=== PATIENT | male | born 1955 | race Caucasian/White ===

== ENCOUNTER → 2017-02-20 | Outpatient (CLI) | payer OTHER ==
--- NOTE | 2017-02-20 11:07 | XR ---
Right hip HISTORY: An 52 431, sciatica right hip, pain 2 views of the right hip There is marked hypertrophic change and joint space loss, remodeling in the right hip. Subchondral sc lerosis and probable geode formation. Prominence along the femoral neck is noted. IMPRESSION: Marked osteoarthritis, findings could be indicative of femoral acetabular impingement.
--- NOTE | 2017-02-20 11:09 | XR ---
Lumbosacral spine HISTORY: Sciatica right hip, right hip and groin pain 5 views of the lumbosacral spine There is multilevel spondylosis, anterior flowing osteophytes are noted. Minimal anterolisthesis grad e 1 L5-S1. Suspect spondylolysis may be present at L5. Vertebral body height is maintained, bone mine ralization is normal. IMPRESSION: Osteoarthritis, there may be diffuse idiopathic skeletal hyperostosis. Difficult to exclu de spondylolysis of L5. Minimal grade 1 anterolisthesis L5-S1.
== END ==
LOC: RADXRYALE 09:58
PROVIDERS: ATTEND Internal Medicine
DX: M43.17 Spondylolisthesis, lumbosacral region (principal); M47.816 Spondylosis without myelopathy or radiculopathy, lumbar region; M16.11 Unilateral primary osteoarthritis, right hip
CPT/HCPCS: 72110; 73502

== ENCOUNTER → 2017-04-07 | Outpatient (CLI) | payer OTHER | END | disposition home or self-care (01) | LOC: LABPAT 13:49 | PROVIDERS: ATTEND Orthopaedic Surgery | DX: Z01.812 Encounter for preprocedural laboratory examination (principal); M16.11 Unilateral primary osteoarthritis, right hip | CPT/HCPCS: 87070 ==

== ENCOUNTER 2017-04-14 05:51 | Inpatient (IN) | payer OTHER ==
[~2017-04-14 05:51] MED LIST: DEXAMETHASONE SOD PHOSPHATE 10 MG/ML 1 ML VIAL IV ONE; HYDROmorphone 1 MG/ML 1 ML SYRINGE IVP PRN; LIDOCAINE 1% 20 ML VIAL (10MG/ML) FOR IV START INTRADERMA PRN; ONDANSETRON 4 MG/2 ML VIAL IVP ONE; SCOPOLAMINE 1.5MG/72HR PATCH TRANSDERM ONE
[2017-04-14] MEDS ORDERED: ACETAMINOPHEN TAB 500 MG TAB PO ONE (06:51)
[2017-04-14] MEDS: LACTATED RINGERS 1,000 ML IV SCH ×3 (06:53→20:36)
[2017-04-14] MEDS ORDERED: MELOXICAM 7.5 MG TAB PO ONE (07:02)
--- NOTE | 2017-04-14 07:14 | P.HPOR ---
History of Present Illness H&P Date: 04/14/17 Chief Complaint: Right hip pain 61-year-old patient seen with symptomatic right hip osteoarthritis. After having treatment options discussed, he elected to proceed with direct anterior right total hip arthroplasty. Consent was obtained. Past Medical History Past Medical History: Hyperlipidemia, Osteoarthritis (OA) History of Any Multi-Drug Resistant Organisms: None Reported Past Surgical History: Orthopedic Surgery Additional Past Surgical History / Comment(s): right rotator cuff repair,right little finger surg. Past Anesthesia/Blood Transfusion Reactions: No Reported Reaction Smoking Status: Never smoker - Past Family History Mother Family Medical History: No Reported History Medications and Allergies Home Medications Medication Instructions Recorded Confirmed Type Atorvastatin [Lipitor] 40 mg PO HS 04/07/17 04/14/17 History Ibuprofen [Motrin] 800 mg PO Q6H PRN 04/07/17 04/14/17 History Acetaminophen Tab [Tylenol Tab] 1,000 mg PO Q6HR PRN 04/14/17 04/14/17 History Allergies Allergy/AdvReac Type Severity Reaction Status Date / Time No Known Allergies Allergy Verified 04/14/17 06:19 Physical Examination Osteopathic Statement: *. No significant issues noted on an osteopathic structural exam other than those noted in the History and Physical/Consult. Diffuse tenderness about the right hip girdle. Limited range of motion with severe pain right hip. Diffuse weakness about the right hip. Positive hip impingement sign right. Right lower extremity approximately 1/2 inch shorter than the left. Straight leg raise negative. Distal neurovascular exam is intact. Results X-ray right hip: severe osteoarthritis Assessment and Plan Plan: Assessment: Symptomatic right hip osteoarthritis Plan: Direct anterior right total hip arthroplasty
[2017-04-14] MEDS ORDERED: TRANEXAMIC ACID 1,000 MG in SODIUM CHLORIDE 0.9% 100 ML IVPB ONE ×4 (07:15)
[2017-04-14] MEDS ORDERED: SODIUM CHLORIDE 0.9% 100 ML BAG ONE (07:25)
[2017-04-14] MEDS: ceFAZolin 2 GM in SODIUM CHLORIDE 0.9% 100 ML IVPB ONE ×2 (07:25→07:27)
[2017-04-14] MEDS ORDERED: PROPOFOL 10 MG/ML 20 ML VIAL IV ONE (07:25)
[2017-04-14] MEDS ORDERED: MIDAZOLAM 2 MG/2 ML VIAL ONE (07:25)
[2017-04-14] MEDS ORDERED: ceFAZolin 3,000 MG in SODIUM CHLORIDE 0.9% IRRIGATIO 3,000 ML IRRIGATION ONE (07:25)
[2017-04-14] MEDS ORDERED: TRANEXAMIC ACID 1,000 MG/10 ML VIAL ONE (07:25)
[2017-04-14] MEDS ORDERED: fentaNYL (PF) 50 MCG/ML 2 ML AMP ONE (07:25)
[2017-04-14] MEDS ORDERED: ePHEDrine SULFATE/0.9% NACL/PF 50 MG/5 ML SYRINGE IV ONE (07:25)
[2017-04-14] MEDS: ROPIVACAINE 246.25 MG, EPINEPHrine 0.5 MG, KETOROLAC 30 MG, cloNIDine HCL/PF 80 MCG, WA... MISCELLANE ONE ×10 (08:03→09:18)
[2017-04-14] MEDS ORDERED: LACTATED RINGERS 1,000 ML IV ONE ×2 (08:17→09:38)
[2017-04-14] MEDS ORDERED: MELOXICAM 7.5 MG TAB PO SCH (09:00)
[2017-04-14] MEDS ORDERED: HYDROcodone/APAP 7.5-325MG 1 EACH TAB PO PRN (09:54)
[2017-04-14] MEDS ORDERED: NALOXONE 0.4 MG/ML 1 ML VIAL IV PRN (09:54)
[2017-04-14] MEDS ORDERED: HYDROmorphone 1 MG/ML 1 ML SYRINGE IVP PRN ×3 (09:54)
[2017-04-14] MEDS ORDERED: ONDANSETRON 4 MG/2 ML VIAL IVP PRN (09:54)
[2017-04-14] MEDS ORDERED: hydrOXYzine PAMOATE 25 MG CAP PO PRN (09:54)
--- NOTE | 2017-04-14 09:54 | P.OP ---
Date of Procedure: 04/14/17 Preoperative Diagnosis: Right hip osteoarthritis Postoperative Diagnosis: Right hip osteoarthritis Procedure(s) Performed: Direct anterior right total hip arthroplasty Implants: 1. Depuy Corail size 13 standard collar cementless femoral stem 2. Depuy pinnacle press-fit acetabular shell 60 mm 3. Depuy polyethylene acetabular liner neutral 36 mm ID 60 mm OD 4. Biolox delta ceramic femoral head +8.5 36 mm 5. 4-pinnacle 6.5 mm cancellous bone screws Anesthesia: regional (Adductor canal block), local, spinal Surgeon: Luis Wilson Tandem Mill Roller #1: Justin Nam Estimated Blood Loss (ml): 600 Pathology: other (Femoral head) Condition: stable Disposition: PACU Indications for Procedure: 61-year-old patient seen with symptomatic right hip osteoarthritis. After treatment options were discussed, he elected to proceed with direct anterior right total hip arthroplasty. Operative Findings: See description of procedure Description of Procedure: The patient was taken to the operative suite after having undergone an adductor canal block by the department of anesthesia. Patient underwent a spinal anesthetic by the department of anesthesia. Patient was then transferred to the [facility]. Patient was given preoperative IV antibiotics and TXA. Both lower extremities were placed in standard leg spars. The hip was then prepped and draped in the normal sterile orthopedic fashion. A standard anterior incision was made beginning 3 cm lateral and 1 cm distal to the ASIS extending 10 cm. Dissection was then carried down through the subcutaneous soft tissues down to the fascia overlying the tensor fascia janey. An incision was now made through the fascia. Careful dissection was taken down exposing the tensor fascia jnaey muscle. A Cobra retractor was now placed along the medial femoral neck and a second one along the lateral femoral neck. The venous circumflex vessels were now identified, cauterized and clipped. We identified the anterior hip capsule. An incision was made through the hip capsule along the lateral border. Tag sutures were then placed along the anterior capsule and lateral capsule. We then performed a capsulotomy. Retractors were now placed around the femoral neck itself. A Cobra retractor was now placed along the anterior acetabulum. Good exposure was now noted of the femoral head/neck complex. Residual labrum was debrided out. We placed the extremity into 3 turns of fine traction. We were then able to introduce a skid in between the femoral head and acetabulum. A placed a awl into the femoral head. We took 2 turns of traction off the extremity. Rotation was now released. The femoral head was then dislocated without difficulty. Additional releasing was performed of the capsule. The head was then reduced. All traction was released. A femoral neck cut was now made with a sagittal saw. It was completed with an osteotome at the lateral neck area. The femoral head was now removed without difficulty. The extremity was now rotated to 60 of external rotation. It was locked in position. Residual labrum was now debrided out. There was some obvious significant deficiency noted in the posterior wall the acetabulum Serial reaming was performed of the acetabulum. Once we reached the appropriate size and a trial was position and it seemed to fit reasonably well again with this significant posterior wall deficiency. The appropriate size was now chosen opened and made available. I chose a multi hole cup given the posterior wall deficiency. It was introduced into the acetabulum without difficulty. This was done under direct fluoroscopy. I did get to stick but again with a posterior wall deficiency I felt that additional augmented screw fixation was indicated. Appropriate drill holes were made under direct C-arm fluoroscopy and an appropriate length screws were inserted 4. All 4 screws had good bite and purchase. I now irrigated the wound with pulse lavage mechanical irrigation. The C-arm was pulled back. An appropriate liner was introduced and clicked into position. It was felt to be stable. At this point retractors were removed. The extremity was now placed into 120 external rotation with no traction. The leg was now dropped to the ground and adducted. Appropriate retractors were now positioned along the proximal femur. We also placed our femoral look into position. Additional capsular releasing was performed to gain access to the proximal femur. We now used a box osteotome. A canal finder was now utilized. Serial broaching was now performed until we reached the appropriate size with good overall rotational stability. Appropriate calcar planing was performed. A trial head/neck was placed into position. The hip was now reduced. The C-arm/fluoroscopy was brought back into the operative field. A spot film was obtained of the nonoperative hip. A spot film was obtained of the trial components. Overlays were performed, we noted good overall alignment and positioning for determining leg length. The C- arm/fluoroscopy was pulled back. Retractors were repositioned and the hip was dislocated. The leg was again taken down to the ground and adducted. Appropriate retractors were repositioned as well as the femoral hook. All trial components were removed. The wound was irrigated with pulse lavage mechanical irrigation. The femoral implant was opened along with the femoral head. The femoral implant was introduced with good purchase and fixation noted. The femoral head was introduced with good positioning and fixation noted. Retractors were now removed. The hip was now reduced. There appeared be good positioning of the hip. This was confirmed under direct fluoroscopy. A spot film was obtained to document this. A second gram of TXA was given. Bipolar cautery had been utilized intermittently through the procedure for hemostasis. The wound was irrigated copiously with pulse lavage mechanical irrigation. The fascia was repaired with Vicryl suture. The subcutaneous soft tissues were repaired in layers with Vicryl suture. The skin was approximated with pernio/Dermabond. Sterile dressings were applied. Patient was then awakened, transferred to a bed and taken to recovery in stable condition. Saturnino VIERA assisted with the procedure.
[2017-04-14 11:51] VITALS: BMI 26.7
[2017-04-14] MEDS: HYDROcodone/APAP 7.5-325MG 1 EACH TAB PO PRN (12:04)
[2017-04-14] MEDS: traMADol 50 MG TAB PO SCH ×2 (12:19→17:44)
[2017-04-14] MEDS: ceFAZolin 2 GM in SODIUM CHLORIDE 0.9% 100 ML IVPB SCH (16:26)
[2017-04-14] MEDS ORDERED: SENNOSIDES-DOCUSATE SODIUM 1 EACH TAB PO SCH (21:00)
[2017-04-15] MEDS: ceFAZolin 2 GM in SODIUM CHLORIDE 0.9% 100 ML IVPB SCH ×2
[2017-04-15 01:07] VITALS: PULSE 102
[2017-04-15 04:44] VITALS: BP 118/66; TEMP 98.9
[2017-04-15] MEDS: LACTATED RINGERS 1,000 ML IV SCH ×2 (06:30→07:59)
[2017-04-15 07:01] LABS: Basophils % (A) 0 %; CH 29.6; CHCM 33.2; Eosinophils % (A) 0 %; HCT 32.6 % (39.0-53.0); HDW 2.53; HGB 10.8 gm/dL (13.0-17.5); Luc # (Auto) 0.16; Luc % (Auto) 1; Lymphocytes # (A) 1.7 k/uL (1.0-4.8); Lymphocytes % (A) 15 %; MCH 29.6 pg (25.0-35.0); MCHC 33.1 g/dL (31.0-37.0); MCV 89.6 fL (80.0-100.0); Mean Platelet Volume 7.5; Monocytes # (A) 0.6 k/uL (0-1.0); Monocytes % (A) 6 %; Neutrophils # (A) 8.6 k/uL (1.3-7.7); Neutrophils % (A) 77 %; RBC 3.64 m/uL (4.30-5.90); RDW 13.4 % (11.5-15.5); WBC 11.1 k/uL (3.8-10.6); WBC (Perox) 11.47
[2017-04-15] MEDS: HYDROcodone/APAP 7.5-325MG 1 EACH TAB PO PRN (07:45)
[2017-04-15 08:01] VITALS: RESP 16
[2017-04-15] MEDS ORDERED: ENOXAPARIN 40 MG/0.4 ML SYRINGE SQ SCH (09:00)
[2017-04-15] MEDS ORDERED: MELOXICAM 7.5 MG TAB PO SCH (09:00)
[2017-04-15] MEDS ORDERED: FAMOTIDINE 20 MG TAB PO SCH (09:00)
--- NOTE | 2017-04-15 09:10 | P.PN ---
Subjective Principal diagnosis: s/p right gely Patient is seen today resting in his hospital chair, he appears comfortable. His pain is well-controlled. He's done well with therapy. He denies any headaches, lightheadedness, chest pain, shortness of breath, nausea or vomiting. Objective - Vital Signs Vital signs: Vital Signs Temp 98.9 F 04/15/17 02:43 Pulse 102 H 04/15/17 02:43 Resp 16 04/15/17 04:00 BP 118/66 04/15/17 02:43 Pulse Ox 93 L 04/15/17 02:43 Intake & Output 04/14/17 04/15/17 04/15/17 18:59 06:59 18:59 Intake Total 2551 1000 Output Total 1500 1300 Balance 1051 1000 -1300 Weight 84.5 kg Intake: IV 2050 1000 Lactated Ringers 1,000 ml 1000 @ 100 mls/hr IV .Q10H THEODORA Rx#:[id number] Oral 500 Output: Urine 900 1300 Uretheral (Moore) 1300 Estimated Blood Loss 600 Other: Voiding Method Indwelling Catheter Indwelling Catheter - Exam Right lower extremity: Incisions clean, dry, and intact. Minimal soft tissue swelling present in the anterior thigh. Calf is soft, no tenderness with palpation. Plantar flexion, dorsiflexion, EHL, FHL are intact. Sensory exam to light touch throughout the extremities intact, dorsal pedis pulses 2+. - Labs CBC & Chem 7: 04/15/17 06:39 Labs: Abnormal Lab Results - Last 24 Hours (Table) 04/15/17 Range/Units 06:39 WBC 11.1 H (3.8-10.6) k/uL RBC 3.64 L (4.30-5.90) m/uL Hgb 10.8 L (13.0-17.5) gm/dL Hct 32.6 L (39.0-53.0) % Neutrophils # 8.6 H (1.3-7.7) k/uL Assessment and Plan Plan: Assessment: 1. Postop day #1 status post right total hip arthroplasty Plan: 1. Pain control, patient will be discharged home on oral medication 2. Continue work with therapy 3. Encourage incentive spirometer 4. Daily dressing changes 5. GI and DVT prophylaxis, we'll discharge home on aspirin 325 mg twice a day 6. Medical recommendations 7. Discharge planning: Patient will be discharged home today Time with Patient: Less than 30
[2017-04-15] MEDS: traMADol 50 MG TAB PO SCH ×2 (09:16)
--- NOTE | 2017-04-15 09:17 | P.DS ---
Providers Date of admission: 04/14/17 05:51 Expected date of discharge: 04/15/17 Attending physician: Luis Wilson Consults: 04/14/17 09:54 Consult Physician Routine Consulting Provider: Cristina Muir Consult Reason/Comments: Medical management Do you want consulting provider notified?: Yes Primary care physician: Annamaria Pimentel Hospital Course: Date of admission: 04/14/2017 Date of discharge: 04/15/2017 Admission diagnosis: Status post right total hip arthroplasty Discharge diagnosis: Same Attending physician: Dr. Wilson Surgical procedures: Right total hip arthroplasty Brief history: Patient is a 61-year-old male with a history of with progressive primary right hip osteoarthritis. At this point patient has failed conservative treatment measures and has opted to proceed with a elective right total hip arthroplasty. Hospital course: Details of patient's surgery can be found in operative report. Patient tolerated the procedure well and was subsequently transported to orthopedic floor. Patient's orthopeidc and medical care was provided daily. Patient had daily laboratory tests performed for evaluation of overall blood counts. Patient had daily physical therapy to include strengthening range of motion as well as education with walker ambulation. Patient was treated with Lovenox for their postoperative DVT prophylaxis during their inpatient stay. Patient was noted to have a relatively uneventful postoperative course. Patient reported satisfactory pain control with oral pain medications by postoperative day 0. Patient showed satisfactory progress with physical therapy. Patient moved steadily through the program and had no difficulty meeting the goals by postoperative day 1. Given patient's otherwise satisfactory course and having met physical therapy goals, plan is to discharge patient home on postoperative day 1. Discharge condition/disposition: Patient will be discharged home in stable condition. Discharge medications: Instructions are given on resumption of patient's normal daily medications per primary care recommendation, in addition patient will be prescribed Mehoopany 7.5 mg/325 mg, tramadol 50 mg, Colace milligrams, Pepcid 20 mg , aspirin 325 mg. Discharge instructions: 1. Wound care and infection precautions, keep incision dry and covered while showering, no lotions, creams, moisturizers. No soaking, tubs, pools, hottubs. Do not scrub over the incision. 2. Weight-bear as tolerated with walker / cane until follow-up. 3. Ice and elevate when necessary. Do not exceed 20 minutes per hour with ice pack. 4. Utilize compression sleeve until seen at first follow up appointment. 5. Visiting nursing care. 6. Home physical therapy. 7. Pain meds and anticoagulants per prescription. 8. Pain medication has potential to cause constipation. Increase oral fluid and fiber intake. Contact primary care provider if you have not had a bowel movement within 48 hours after discharge 9. No anti-inflammatory medication until discussed at first post operative visit, this including Motrin, Aleve, Mobic, Diclofenac. 10. Follow up in office at 2 weeks postop with Saturnino Nam PA-C 11. Follow up with your primary care doctor 7-10 days after discharge. 12. Contact [facility] with any questions, . Procedures: Right total hip arthroplasty Patient Condition at Discharge: Good Plan - Discharge Summary New Discharge Prescriptions: New Aspirin 325 mg PO BID #60 tab Docusate [Colace] 100 mg PO DAILY #30 capsule Famotidine [Pepcid] 20 mg PO DAILY #30 tablet HYDROcodone/APAP 7.5-325MG [Mehoopany 7.5] 1 - 2 each PO Q6HR PRN #60 tab PRN Reason: Pain traMADol HCl [Ultram] 50 mg PO Q6H PRN #40 tab PRN Reason: Pain No Action Atorvastatin [Lipitor] 40 mg PO HS Ibuprofen [Motrin] 800 mg PO Q6H PRN PRN Reason: Pain Acetaminophen Tab [Tylenol Tab] 1,000 mg PO Q6HR PRN PRN Reason: Pain Discharge Medication List Atorvastatin [Lipitor] 40 mg PO HS 04/07/17 [History] Ibuprofen [Motrin] 800 mg PO Q6H PRN 04/07/17 [History] Acetaminophen Tab [Tylenol Tab] 1,000 mg PO Q6HR PRN 04/14/17 [History] Aspirin 325 mg PO BID #60 tab 04/15/17 [Rx] Docusate [Colace] 100 mg PO DAILY #30 capsule 04/15/17 [Rx] Famotidine [Pepcid] 20 mg PO DAILY #30 tablet 04/15/17 [Rx] HYDROcodone/APAP 7.5-325MG [Mehoopany 7.5] 1 - 2 each PO Q6HR PRN #60 tab 04/15/17 [ Rx] traMADol HCl [Ultram] 50 mg PO Q6H PRN #40 tab 04/15/17 [Rx] Follow up Appointment(s)/Referral(s): [facility], [NON-STAFF] - Justin Nam, [place] [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 Wound care and infection precautions, keep incision dry and covered while showering, no lotions, creams, moisturizers. No soaking, pools, hot tubs. Do not scrub over incision. 2. Weight-bear as tolerated with walker / cane until follow-up. 3. Ice and elevate when necessary. Do not exceed 20 minutes per hour with ice pack. 4. Utilize compression sleeve until seen at first follow up appointment. 5. Visiting nursing care. 6. Home physical therapy. 7. Pain meds and anticoagulants per prescription. 8. Pain medication has potential to cause constipation. Increase oral fluid and fiber intake. Contact primary care provider if you have not had a bowel movement within 48 hours after discharge. 9. No anti-inflammatory medication until discussed at first post operative visit, this including Motrin, Aleve, Mobic, Diclofenac. 10. Follow up in office at 2 weeks postop with Saturnino Nam PA-C 11. Follow up with your primary care doctor 7-10 days after discharge. 12. Contact [facility] with any questions, . Discharge Disposition: HOME WITH HOME HEALTH SERVICES
[2017-04-15] MEDS ORDERED: ACETAMINOPHEN TAB 500 MG TAB PO PRN (11:49)
[2017-04-15] MEDS ORDERED: MULTIVITAMINS, THERA 1 EACH TAB PO SCH (12:00)
[2017-04-15] MEDS ORDERED: ATORVASTATIN 40 MG TAB PO SCH (21:00)
== END 2017-04-15 13:57 | disposition home health service (06) | DRG 470 ==
LOC: 2ORMAIN 05:51 → 3SUR 09:43
PROVIDERS: ADMIT Orthopaedic Surgery; ATTEND Orthopaedic Surgery
PROC: 0SR904A Replacement of Right Hip Joint with Ceramic on Polyethylene Synthetic Substitute, Uncemented, Open Approach (ICD-10-PCS; principal; 2017-04-14 07:30)
DX: M16.11 Unilateral primary osteoarthritis, right hip (principal); E78.5 Hyperlipidemia, unspecified; Z79.899 Other long term (current) drug therapy; Z79.1 Long term (current) use of non-steroidal anti-inflammatories (NSAID); Z82.49 Family history of ischemic heart disease and other diseases of the circulatory system; Z83.3 Family history of diabetes mellitus; Z51.81 Encounter for therapeutic drug level monitoring
CPT/HCPCS: 36415; 85025; 86850; 86900; 86901; 88300

== ENCOUNTER 2021-06-27 09:00 | Inpatient (IN) | payer OTHER ==
[2021-06-27] MEDS ORDERED: ONDANSETRON 4 MG/2 ML VIAL IVP STA (09:06)
--- NOTE | 2021-06-27 09:11 | ED ---
General Adult HPI - General Chief complaint: Shortness of Breath Stated complaint: Cardiac Arrest Time Seen by Provider: 06/27/21 09:00 Source: patient, RN/MD, EMS, RN notes reviewed, old records reviewed Mode of arrival: EMS Limitations: no limitations - History of Present Illness Initial comments: 65-year-old male with a history of hyperlipidemia nonsmoker who is in process of getting a cardiac workup which also included a stress test in the cardiology office today when after the stress test patient was sitting and was noted to go into a ventricular fibrillation arrest. CPR was started it for for about one half minutes AED was applied which read shock the patient was shocked once and back into a sinus rhythm. He woke up immediately. He was given 150 mg of amiodarone IV push transported here by EMS for further evaluation. Currently he complains some nausea and some soreness to his chest. No definitive EKG changes in the post arrest EKG. I did discuss this with Dr. Tello. - Related Data Home Medications Medication Instructions Recorded Confirmed Aspirin EC [Ecotrin Low Dose] 81 mg PO DAILY 06/27/21 06/27/21 Metoprolol Succinate [Toprol XL] 25 mg PO DAILY 06/27/21 06/27/21 Rosuvastatin [Crestor] 20 mg PO DAILY 06/27/21 06/27/21 Allergies Allergy/AdvReac Type Severity Reaction Status Date / Time No Known Allergies Allergy Verified 06/27/21 09:26 Review of Systems ROS Statement: Those systems with pertinent positive or pertinent negative responses have been documented in the HPI. ROS Other: All systems not noted in ROS Statement are negative. Past Medical History Past Medical History: Hyperlipidemia, Osteoarthritis (OA) History of Any Multi-Drug Resistant Organisms: None Reported Past Surgical History: Orthopedic Surgery Additional Past Surgical History / Comment(s): right rotator cuff repair,right little finger surg. Past Anesthesia/Blood Transfusion Reactions: No Reported Reaction Past Psychological History: No Psychological Hx Reported Smoking Status: Never smoker Past Alcohol Use History: None Reported Past Drug Use History: None Reported - Past Family History Mother Family Medical History: No Reported History General Exam - General Exam Comments Initial Comments: This is a well-developed well-nourished awake alert oriented 3 male Limitations: no limitations General appearance: alert, anxious Head exam: Present: atraumatic, normocephalic, normal inspection Eye exam: Present: normal appearance, PERRL, EOMI. Absent: scleral icterus, conjunctival injection, periorbital swelling ENT exam: Present: normal exam, mucous membranes moist Neck exam: Present: normal inspection, full ROM, other (Discharge. Bruits). Absent: tenderness, meningismus, lymphadenopathy Respiratory exam: Present: normal lung sounds bilaterally, chest wall tenderness (For her mild tenderness palpation of the anterior chest wall with palpation no step-off or crepitation). Absent: respiratory distress, wheezes, rales, rhonchi, stridor Cardiovascular Exam: Present: regular rate, normal rhythm, normal heart sounds. Absent: systolic murmur, diastolic murmur, rubs, gallop, clicks GI/Abdominal exam: Present: soft, normal bowel sounds. Absent: distended, tenderness, guarding, rebound, rigid Extremities exam: Present: normal inspection, full ROM, normal capillary refill. Absent: tenderness, pedal edema, joint swelling, calf tenderness Back exam: Present: normal inspection Neurological exam: Present: alert, oriented X3, CN II-XII intact Psychiatric exam: Present: normal affect, normal mood Skin exam: Present: warm, dry, intact, normal color. Absent: rash Course Vital Signs 06/27/21 06/27/21 06/27/21 09:01 09:05 09:06 Temperature 97.8 F Pulse Rate 77 71 Respiratory 18 18 18 Rate Blood Pressure 147/89 O2 Sat by Pulse 100 Oximetry EKG Findings - EKG Results: EKG: interpreted by ERMD, sinus rhythm (There was sinus rhythm a 73. Interval 196 QRS duration 68 daily since QTC 386/425 left exodeviation evidence of first- degree AV block. Appears to the EKG submitted from the office.) Medical Decision Making - Medical Decision Making I did discuss the findings with Dr. Brennan who did come the emergency department see the patient patient be admitted with consultation by Dr. Street. Dr. Tello did contact Dr. Street. - Radiology Data Radiology results: image reviewed (Image reviewed no acute findings) Critical Care Time Critical Care Time: Yes Total Critical Care Time: 31 Critical Care Time: Critical care time includes initial presentation with history physical labs x- rays multiple reevaluation patient responsive therapy discuss with the boring machine set up operator jig this and the patient to the hospital. Review of old charting discussion with Dr. Brennan admission orders neck mentation the above. Disposition Clinical Impression: Cardiac arrest with ventricular fibrillation Disposition: ADMITTED IP TO THIS HOSP Condition: Fair Referrals: Annamaria Pimentel MD [Primary Care Provider] - 1-2 days
[2021-06-27] MEDS ORDERED: HEPARIN SODIUM 1,000 UN/ML (10ML VL) IV ONE ×2 (09:12→17:51)
[2021-06-27] MEDS ORDERED: HEPARIN SODIUM 1,000 UN/ML (10ML VL) IV PRN (09:12)
[2021-06-27] MEDS ORDERED: AMIODARONE 360 MG in DEXTROSE 5% IN WATER 200 ML IV ONE ×2 (09:15)
[2021-06-27] MEDS ORDERED: DEXTROSE 5% IN WATER 100 ML with AMIODARONE 150 MG IV ONE (09:30)
--- NOTE | 2021-06-27 09:36 | XR ---
EXAMINATION TYPE: XR chest 2V DATE OF EXAM: 06/27/2021 COMPARISON: None HISTORY: 65-year-old male dysrhythmia, nausea TECHNIQUE: AP and lateral views FINDINGS: Overlying pacer pad. Heart upper limits of normal in size. Aorta and pulmonary vasculature within nor mal limits. No consolidation or pleural effusion. IMPRESSION: Borderline heart size. No acute cardiopulmonary process.
[2021-06-27] MEDS ORDERED: NALOXONE 0.4 MG/ML 1 ML VIAL IV PRN (09:48)
[2021-06-27 09:50] LABS: Basophils # (A) 0.1 k/uL (0-0.2); Basophils % (A) 1 %; Eosinophils # (A) 0.1 k/uL (0-0.7); Eosinophils % (A) 1 %; HCT 47.2 % (39.0-53.0); HGB 15.4 gm/dL (13.0-17.5); Lymphocytes # (A) 3.5 k/uL (1.0-4.8); Lymphocytes % (A) 34 %; MCH 29.8 pg (25.0-35.0); MCHC 32.6 g/dL (31.0-37.0); MCV 91.3 fL (80.0-100.0); Mean Platelet Volume 8.6; Monocytes # (A) 0.4 k/uL (0-1.0); Monocytes % (A) 4 %; Neutrophils % (A) 59 %; Platelet Count 261 k/uL (150-450); RBC 5.17 m/uL (4.30-5.90); RDW 12.7 % (11.5-15.5); WBC 10.1 k/uL (3.8-10.6)
[2021-06-27] MEDS ORDERED: ATORVASTATIN 80 MG TAB PO STA (09:50)
[2021-06-27] MEDS ORDERED: AMIODARONE IN DEXTROSE,ISO-OSM 360 MG/200 ML PLAST..BAG IV ONE (10:02)
[2021-06-27] MEDS ORDERED: AMIODARONE IN DEXTROSE,ISO-OSM 150 MG/100 ML PLAST..BAG IV ONE (10:02)
[2021-06-27 10:03] LABS: Partial Thromboplastin Time 22.8 sec (22.0-30.0); Prothrombin Time 10.7 sec (9.0-12.0)
[2021-06-27 10:10] LABS: ALT 44 U/L (4-49); AST 42 U/L (17-59); African American GFR (CKD) >90 (>60 ml/min/1.73 sqM); Albumin 4.6 g/dL (3.5-5.0); Alkaline Phosphatase 103 U/L (38-126); Anion Gap 11 mmol/L; Blood Urea Nitrogen 17 mg/dL (9-20); Calcium 9.3 mg/dL (8.4-10.2); Carbon Dioxide 22 mmol/L (22-30); Chloride 107 mmol/L (98-107); Glucose 131 mg/dL (74-99); Magnesium 1.9 mg/dL (1.6-2.3); Non-African American GFR(CKD) >90 (>60 ml/min/1.73 sqM); Potassium 4.3 mmol/L (3.5-5.1); Sodium 140 mmol/L (137-145); Total Bilirubin 0.5 mg/dL (0.2-1.3); Total Protein 7.4 g/dL (6.3-8.2)
[2021-06-27] MEDS: HEPARIN SOD,PORK IN 0.45% NACL 25,000 UNIT in 0.45% NACL 1 250ML.BAG IV SCH (10:11)
[2021-06-27] MEDS: SODIUM CHLORIDE 0.9% 1,000 ML IV SCH (10:14)
[2021-06-27] MEDS ORDERED: ATORVASTATIN 40 MG TAB PO SCH (10:15)
[2021-06-27] MEDS ORDERED: ASPIRIN 81 MG PO SCH (10:15)
[2021-06-27] MEDS: METOPROLOL SUCCINATE (ER) 25 MG TAB.ER.24H PO SCH (10:28)
--- NOTE | 2021-06-27 11:49 | P.CNPUL ---
History of Present Illness Consult date: 06/27/21 Requesting physician: Carmelo Templeton Reason for consult: dyspnea, other Chief complaint: Shortness of breath, acute cardiac arrest History of present illness: This is a 65-year-old male patient of Dr. Pimentel, with past medical history of hyperlipidemia, osteoarthritis, patient is a nonsmoker, who was getting a cardiac workup which also included a stress test at the [facility] office today. Patient was wearing a heart monitor for the last month because of episodes of exertional dyspnea, however at the time of his stress test the monitor was off. During his stress test patient went into ventricular fibrillation cardiac arrest. CPR was started for 1-1/2 minutes when the EEG was applied and a shock was delivered and patient was back in sinus rhythm. He regained consciousness immediately he was given 150 mg of IV push amiodarone, transported by EMS to the emergency department for further evaluation and management. Patient is awake and alert in the emergency department, complaining of some soreness to his chest, and nausea. EKG was obtained showing sinus mechanism with first-degree AV block and a rate of 73 BPM. He has evidence of Q wave in the leads 3 and aVF, and leads V2, V3. Cardiology is on the case, and evaluating the patient in the emergency department. Chest x-ray was obtained showing heart upper limits of normal in size, no acute cardiopulmonary process. Patient is breathing comfortably, he is on 2 L of oxygen pulse ox is 100%, afebrile, blood pressure is 147/89. She labs have been reviewed, CBC was within normal limits with white blood cell count of 10.1, hemoglobin of 15.4, with a count is 261, d-dimer was 1.08, coagulation profile was within normal limits, electrolytes and renal profile were unremarkable, first troponin was less than 0.012, TSH was 3.040. Patient is on point tenderness a ramy at 20 ML per hour, he is currently on amiodarone infusion at 1 mg/m, and heparin infusion per weight-based protocol, he was given Lipitor 80 mg. His home dose 81 mg aspirin, Toprol-XL has been restarted. Echocardiogram is pending, COVID-19 PCR is pending. Admission to the intensive care unit was requested, patient is currently awaiting a bed in the ICU. Review of Systems All systems: negative Constitutional: Denies chills, Denies fever Eyes: denies blurred vision, denies pain Ears, nose, mouth and throat: Denies headache, Denies sore throat Cardiovascular: Reports chest pain, Reports dyspnea on exertion, Denies shortness of breath Respiratory: Denies cough Gastrointestinal: Denies abdominal pain, Denies diarrhea, Denies nausea, Denies vomiting Musculoskeletal: Denies myalgias Integumentary: Denies pruritus, Denies rash Neurological: Denies numbness, Denies weakness Psychiatric: Denies anxiety, Denies depression Endocrine: Denies fatigue, Denies weight change Past Medical History Past Medical History: Hyperlipidemia, Osteoarthritis (OA) History of Any Multi-Drug Resistant Organisms: None Reported Past Surgical History: Orthopedic Surgery Additional Past Surgical History / Comment(s): right rotator cuff repair,right little finger surg. Past Anesthesia/Blood Transfusion Reactions: No Reported Reaction Past Psychological History: No Psychological Hx Reported Smoking Status: Never smoker Past Alcohol Use History: None Reported Past Drug Use History: None Reported - Past Family History Mother Family Medical History: No Reported History Medications and Allergies Home Medications Medication Instructions Recorded Confirmed Type Aspirin EC [Ecotrin Low Dose] 81 mg PO DAILY 06/27/21 06/27/21 History Metoprolol Succinate [Toprol XL] 25 mg PO DAILY 06/27/21 06/27/21 History Rosuvastatin [Crestor] 20 mg PO DAILY 06/27/21 06/27/21 History Allergies Allergy/AdvReac Type Severity Reaction Status Date / Time No Known Allergies Allergy Verified 06/27/21 09:26 Physical Exam Vitals: Vital Signs Temp Pulse Resp BP Pulse Ox 06/27/21 10:32 75 18 141/80 99 06/27/21 10:02 73 18 138/87 99 06/27/21 09:06 18 06/27/21 09:05 71 18 06/27/21 09:01 97.8 F 77 18 147/89 100 Intake and Output 06/26/21 06/27/21 06/27/21 22:59 06:59 14:59 Other: Weight 83.915 kg GENERAL EXAM: Alert, very pleasant, 65-year-old white male, resting on the gurney in the emergency department, currently on 2 L of oxygen pulse ox 100%, comfortable in no apparent distress. HEAD: Normocephalic/atraumatic. EYES: Normal reaction of pupils, equal size. Conjunctiva pink, sclera white. NOSE: Clear with pink turbinates. THROAT: No erythema or exudates. NECK: No masses, no JVD, no thyroid enlargement, no adenopathy. CHEST: No chest wall deformity. Symmetrical expansion. LUNGS: Equal air entry with no crackles, wheeze, rhonchi or dullness. CVS: Regular rate and rhythm, normal S1 and S2, no gallops, no murmurs, no rubs ABDOMEN: Soft, nontender. No hepatosplenomegaly, normal bowel sounds, no guarding or rigidity. EXTREMITIES: No clubbing, no edema, no cyanosis, 2+ pulses and upper and lower extremities. MUSCULOSKELETAL: Muscle strength and tone normal. SPINE: No scoliosis or deformity SKIN: No rashes CENTRAL NERVOUS SYSTEM: Alert and oriented -3. No focal deficits, tone is normal in all 4 extremities. PSYCHIATRIC: Alert and oriented -3. Appropriate affect. Intact judgment and insight. Results - Laboratory Findings CBC and BMP: 06/27/21 09:18 06/27/21 09:18 PT/INR, D-dimer PT 10.7 sec (9.0-12.0) 06/27/21 09:18 INR 1.0 (<1.2) 06/27/21 09:18 D-Dimer 1.08 mg/L FEU (<0.60) H 06/27/21 09:18 Abnormal lab findings: Abnormal Labs 06/27/21 06/27/21 09:18 09:18 D-Dimer 1.08 H Glucose 131 H - Diagnostic Findings Chest x-ray: report reviewed, image reviewed Additional studies: EKG reviewed Assessment and Plan Plan: Assessment: #1. Acute cardiac arrest related to ventricular fibrillation, during a outpatient stress test, requiring CPR, and defibrillation and return of spontaneous circulation. Received a dose of IV amiodarone and the EMS, and in the emergency department, for a total of 300 mg bolus and is currently on amiodarone infusion #2. Hyperlipidemia #3. Osteoarthritis #4. Nonsmoker #5. Elevated d-dimer, nonspecific #6. Exertional dyspnea for the past 3 months, under investigation by cardiology Plan: Continue antiarrhythmics and anticoagulation per cardiology Remains in sinus mechanism, continue monitoring for recurrence of arrhythmias Neurologically patient is intact Chest x-ray has been reviewed showing no acute abnormality Vital signs are stable Patient continues on amiodarone infusion and heparin infusion Echocardiogram is pending Admit to the intensive care unit for close monitoring Cardiology is consulted Await further recommendations Possibility of cardiac catheterization is being considered, patient is being kept nothing by mouth Continue to follow closely with cardiology I performed a history & physical examination of the patient and discussed their management with my nurse practitioner, Yudi Streeter. I reviewed the nurse practitioner's note and agree with the documented findings and plan of care. Lung sounds are positive for clear breath sounds throughout the lung tran. The findings and the impression was discussed with the patient. I attest to the documentation by the nurse practitioner. Time with Patient: Greater than 30
[2021-06-27 12:26] LABS: Glucose,Whole Blood 102 mg/dL (75-99)
[2021-06-27] MEDS ORDERED: ALPRAZolam 0.25 MG TAB PO PRN (13:12)
[2021-06-27] MEDS ORDERED: NITROGLYCERIN SL TABS 0.4 MG TAB SUBLINGUAL PRN (13:12)
[2021-06-27] MEDS ORDERED: ALPRAZolam 0.5 MG TAB PO PRN (13:12)
--- NOTE | 2021-06-27 14:09 | P.CRDCN ---
History of Present Illness History of present illness: Patient is pleasant 65-year-old male with a history of hyperlipidemia family history of coronary artery disease chest pains who presented approximately one month ago to our cardiology office to be evaluated for episodes where he will feel fine for most the day and then have a 5-10 minute "spell" where he will feel short of breath and had chest tightness. These would normally only occur approximately once a week however were increasing in frequency. He also has been having some episodes of chest tightness if he overdoes things such as mowing the grass for the last few years. He therefore underwent workup with a treadmill stress test earlier today in the office. 3 minutes into recovery he was sitting in a chair and started to have ST downsloping noted in the inferior leads and then 6 minutes into recovery had a ventricular fibrillation arrest. Patient underwent CPR and then defibrillation and was then transferred to [facility]. Patient seen and examined in emergency department. Patient states that since that time he denies any chest pain or pressure, no shortness breath. He is feeling somewhat nauseous however improving. EKG shows normal sinus rhythm, Q waves V1 and V2, no significant ST depressions or T-wave abnormalities. Blood work shows white blood cell count 10.1, hemoglobin 15.4, d-dimer 1.0, BUN 17, creatinine 0.8, glucose 131, initial troponin less than 0.012. No current chest pain or pressure, feels well. REVIEW OF SYSTEMS: At the time of my exam: CONSTITUTIONAL: Denies fever or chills. HEENT: Denies blurred vision, vision changes, or eye pain. Denies hemoptysis CARDIOVASCULAR: Denies chest pain. Denies orthopnea. Denies PND. Denies palpitations RESPIRATORY: Denies shortness of breath. GASTROINTESTINAL: Denies abdominal pain. Denies nausea or vomiting. HEMATOLOGIC: Denies bleeding disorders. GENITOURINARY: Denies any blood in urine. SKIN: Denies pruitis. Denies rash. PHYSICAL EXAM: VITAL SIGNS: Reviewed. GENERAL: Well-developed in no acute distress. HEENT: Head is normocephalic. Pupils are equal, round. Sclerae anicteric. Mucous membranes of the mouth are moist. Neck supple. No JVD or thyromegaly LUNGS: Respirations even and unlabored. Lungs with bilateral wheezing and bibasilar rales. HEART: Regular rate and rhythm. S1 and S2 heard. ABDOMEN: Soft. Nondistended. Nontender. EXTREMITIES: Normal range of motion. No clubbing or cyanosis. Peripheral pulses intact. Bilateral lower extremity edema noted, right worse than left NEUROLOGIC: Awake and alert. Oriented x 3. ASSESSMENT: 1. Ventricular fibrillation during stress test 2. Chest pain consistent with chronic angina 3. Status post cardiac arrest 4. Hyperlipidemia 5. Elevated d-dimer, do not suspect PE given clinical scenario PLAN: Patient unfortunately had a V. fib arrest during stress test which can be a rare complication from stress testing. He admits this was more activity than he normally does and symptoms consistent with chronic angina. Patient currently denies any angina-type symptoms. EKG back to normal without any ischemic albarran es. Discussed recommendations for heart catheterization with heart catheterization planned for 06/28/2021. Trend troponins. Check 2-D echo. Past Medical History Past Medical History: Hyperlipidemia, Osteoarthritis (OA) History of Any Multi-Drug Resistant Organisms: None Reported Past Surgical History: Orthopedic Surgery Additional Past Surgical History / Comment(s): right rotator cuff repair,right little finger surg. Past Anesthesia/Blood Transfusion Reactions: No Reported Reaction Past Psychological History: No Psychological Hx Reported Smoking Status: Never smoker Past Alcohol Use History: None Reported Past Drug Use History: None Reported - Past Family History Mother Family Medical History: No Reported History Additional Family Medical History / Comment(s): CABG surgery Father Family Medical History: Coronary Artery Disease (CAD), Myocardial Infarction ([place]) Additional Family Medical History / Comment(s): CABG Brother(s) Family Medical History: Coronary Artery Disease (CAD), Myocardial Infarction ([place]) Medications and Allergies Home Medications Medication Instructions Recorded Confirmed Type Aspirin EC [Ecotrin Low Dose] 81 mg PO DAILY 06/27/21 06/27/21 History Metoprolol Succinate [Toprol XL] 25 mg PO DAILY 06/27/21 06/27/21 History Rosuvastatin [Crestor] 20 mg PO DAILY 06/27/21 06/27/21 History Allergies Allergy/AdvReac Type Severity Reaction Status Date / Time No Known Allergies Allergy Verified 06/27/21 09:26 Physical Exam Vitals: Vital Signs Temp Pulse Resp BP Pulse Ox 06/27/21 13:00 68 14 143/91 95 06/27/21 12:45 67 15 148/83 95 06/27/21 12:30 70 15 135/90 95 06/27/21 12:15 97.6 F 71 17 143/118 96 06/27/21 12:00 72 139/84 96 06/27/21 11:30 71 16 136/90 98 06/27/21 11:00 67 16 141/80 100 06/27/21 10:32 75 18 141/80 99 06/27/21 10:30 77 34 H 138/87 99 06/27/21 10:02 73 18 138/87 99 06/27/21 10:00 69 11 L 147/89 98 06/27/21 09:30 67 7 L 147/89 99 06/27/21 09:12 75 24 147/89 06/27/21 09:06 18 06/27/21 09:05 71 18 06/27/21 09:01 97.8 F 77 18 147/89 100 Intake and Output 06/26/21 06/27/21 06/27/21 22:59 06:59 14:59 Output Total 150 Balance -150 Output: Urine 150 Other: Voiding Method Urinal Weight 83.915 kg Results 06/27/21 09:18 06/27/21 09:18 Cardiac Enzymes 06/27/21 06/27/21 Range/Units 09:18 09:18 AST 42 (17-59) U/L Troponin I <0.012 (0.000-0.034) ng/mL Coagulation 06/27/21 Range/Units 09:18 PT 10.7 (9.0-12.0) sec APTT 22.8 (22.0-30.0) sec CBC 06/27/21 Range/Units 09:18 WBC 10.1 (3.8-10.6) k/uL RBC 5.17 (4.30-5.90) m/uL Hgb 15.4 (13.0-17.5) gm/dL Hct 47.2 (39.0-53.0) % Plt Count 261 (150-450) k/uL Comprehensive Metabolic Panel 06/27/21 Range/Units 09:18 Sodium 140 (137-145) mmol/L Potassium 4.3 (3.5-5.1) mmol/L Chloride 107 (98-107) mmol/L Carbon Dioxide 22 (22-30) mmol/L BUN 17 (9-20) mg/dL Creatinine 0.83 (0.66-1.25) mg/dL Glucose 131 H (74-99) mg/dL Calcium 9.3 (8.4-10.2) mg/dL AST 42 (17-59) U/L ALT 44 (4-49) U/L Alkaline Phosphatase 103 (38-126) U/L Total Protein 7.4 (6.3-8.2) g/dL Albumin 4.6 (3.5-5.0) g/dL Current Medications Generic Name Dose Route Start Last Admin Trade Name Freq PRN Reason Stop Dose Admin Alprazolam 0.25 mg 06/27/21 13:12 Alprazolam 0.25 Mg Tab PO Q6HR PRN Mild Anxiety Alprazolam 0.5 mg 06/27/21 13:12 Alprazolam 0.5 Mg Tab PO Q6HR PRN Moderate Anxiety Aspirin 325 mg 06/28/21 07:00 Aspirin 325 Mg Tab PO 06/28/21 07:01 ONCE ONE Aspirin 81 mg 06/29/21 09:00 Aspirin 81 Mg PO DAILY [facility] Atorvastatin Calcium 80 mg 06/28/21 07:00 Atorvastatin 80 Mg Tab PO 06/28/21 07:01 ONCE ONE Atorvastatin Calcium 40 mg 06/29/21 09:00 Atorvastatin 40 Mg Tab PO DAILY [facility] Heparin Sodium (Porcine) 0 unit 06/27/21 09:12 Heparin Sodium 1,000 Un/Ml (10ml Vl) IV PER PROTOCOL PRN Low PTT Protocol Amiodarone HCl 360 mg/ 200 mls @ 33.333 mls/hr 06/27/21 09:15 06/27/21 10:13 Dextrose/Water IV 06/27/21 15:14 1 mg/min .Q6H ONE 33.333 mls/hr Administration Protocol 1 MG/MIN Heparin Sodium/Sodium Chloride 250 mls @ 10 mls/hr 06/27/21 09:15 06/27/21 10:11 25,000 unit/ Sodium Chloride IV 11.917 units/kg/hr .Q24H [facility] 10 mls/hr Administration Protocol 11.917 UNITS/KG/HR Sodium Chloride 1,000 mls @ 20 mls/hr 06/27/21 10:00 06/27/21 10:14 Saline 0.9% IV 20 mls/hr .Q24H [facility] Administration Sodium Chloride 1,000 ml/ IV 1,000 mls @ 83.915 mls/hr 06/27/21 23:00 Solution IV .[id number] [facility] 1 ML/KG/HR Heparin Sodium (Porcine) 10, 1,001 mls @ 999 mls/hr 06/28/21 07:00 000 unit/ Sodium Chloride IRRIGATION 06/28/21 23:00 ONCE PRN INTRA-OP Heparin Sodium (Porcine) 2,500 250.5 mls @ 250 mls/hr 06/28/21 07:00 unit/ Sodium Chloride IRRIGATION 06/28/21 23:00 ONCE PRN INTRA-OP Metoprolol Succinate 25 mg 06/27/21 10:15 06/27/21 10:28 Metoprolol Succinate (Er) 25 Mg Tab.Er.24h PO 25 mg DAILY [facility] Administration Naloxone HCl 0.2 mg 06/27/21 09:48 Naloxone 0.4 Mg/Ml 1 Ml Vial IV Q2M PRN Opioid Reversal Nitroglycerin 0.4 mg 06/27/21 13:12 Nitroglycerin Sl Tabs 0.4 Mg Tab SUBLINGUAL Q5M PRN Chest Pain Intake and Output 06/26/21 06/27/21 06/27/21 22:59 06:59 14:59 Output Total 150 Balance -150 Output: Urine 150 Other: Voiding Method Urinal Weight 83.915 kg Patient Weight 06/28/21 06:59 Weight 83.915 kg 06/27/21 09:18 06/27/21 09:18
--- NOTE | 2021-06-27 14:51 | P.HPIM ---
History of Present Illness Patient is a pleasant 65-year-old male came in after cardiac respiratory arrest and patient is found to be in V. tach this happened when when patient was having a stress test.. His EKG did show sinus rhythm with the Q waves in V1 and V2 and probably ST depressions in leads 2 and V5. Patient's troponin is negative. Patient denied any symptoms at this time patient today. Patient denied any nausea vomiting chest pain. REVIEW OF SYSTEMS: CONSTITUTIONAL: No fever, no malaise, no fatigue. HEENT: No recent visual problems or hearing problems. Denied any sore throat. CARDIOVASCULAR: No chest pain, orthopnea, PND, no palpitations, no syncope. PULMONARY: No shortness of breath, no cough, no hemoptysis. GASTROINTESTINAL: No diarrhea, no nausea, no vomiting, no abdominal pain. NEUROLOGICAL: No headaches, no weakness, no numbness. HEMATOLOGICAL: Denies any bleeding or petechiae. GENITOURINARY: Denies any burning micturition, frequency, or urgency. MUSCULOSKELETAL/RHEUMATOLOGICAL: Denies any joint pain, swelling, or any muscle pain. ENDOCRINE: Denies any polyuria or polydipsia. The rest of the 14-point review of systems is negative. PHYSICAL EXAMINATION: GENERAL: The patient is alert and oriented x3, not in any acute distress. Well developed, well nourished. HEENT: Pupils are round and equally reacting to light. EOMI. No scleral icterus. No conjunctival pallor. Normocephalic, atraumatic. No pharyngeal erythema. No thyromegaly. CARDIOVASCULAR: S1 and S2 present. No murmurs, rubs, or gallops. PULMONARY: Chest is clear to auscultation, no wheezing or crackles. ABDOMEN: Soft, nontender, nondistended, normoactive bowel sounds. No palpable organomegaly. MUSCULOSKELETAL: No joint swelling or deformity. EXTREMITIES: No cyanosis, clubbing, or pedal edema. NEUROLOGICAL: Gross neurological examination did not reveal any focal deficits. SKIN: No rashes. Assessment and plan -Cardiac respiratory arrest probably secondary to coronary artery disease and the patient and into V. tach during stress test and also had downsloping of exteriors during the stress test. Cardiology evaluated the patient. Further management as per cardiology -Hyperlipidemia -Mildly elevated d-dimer. Pretest probability for pulmonary malaise and is low and the d-dimer elevation is secondary to cardiorespiratory arrest DVT prophylaxis: Patient is presently on IV heparin for coronary artery disease Past Medical History Past Medical History: Hyperlipidemia, Osteoarthritis (OA) History of Any Multi-Drug Resistant Organisms: None Reported Past Surgical History: Orthopedic Surgery Additional Past Surgical History / Comment(s): right rotator cuff repair,right little finger surg. Past Anesthesia/Blood Transfusion Reactions: No Reported Reaction Past Psychological History: No Psychological Hx Reported Smoking Status: Never smoker Past Alcohol Use History: None Reported Past Drug Use History: None Reported - Past Family History Mother Family Medical History: No Reported History Additional Family Medical History / Comment(s): CABG surgery Father Family Medical History: Coronary Artery Disease (CAD), Myocardial Infarction ([place]) Additional Family Medical History / Comment(s): CABG Brother(s) Family Medical History: Coronary Artery Disease (CAD), Myocardial Infarction ([place]) Medications and Allergies Home Medications Medication Instructions Recorded Confirmed Type Aspirin EC [Ecotrin Low Dose] 81 mg PO DAILY 06/27/21 06/27/21 History Metoprolol Succinate [Toprol XL] 25 mg PO DAILY 06/27/21 06/27/21 History Rosuvastatin [Crestor] 20 mg PO DAILY 06/27/21 06/27/21 History Allergies Allergy/AdvReac Type Severity Reaction Status Date / Time No Known Allergies Allergy Verified 06/27/21 09:26 Physical Exam Vitals: Vital Signs Temp Pulse Resp BP Pulse Ox 06/27/21 13:00 68 14 143/91 95 06/27/21 12:45 67 15 148/83 95 06/27/21 12:30 70 15 135/90 95 06/27/21 12:15 97.6 F 71 17 143/118 96 06/27/21 12:00 72 139/84 96 06/27/21 11:30 71 16 136/90 98 06/27/21 11:00 67 16 141/80 100 06/27/21 10:32 75 18 141/80 99 06/27/21 10:30 77 34 H 138/87 99 06/27/21 10:02 73 18 138/87 99 06/27/21 10:00 69 11 L 147/89 98 06/27/21 09:30 67 7 L 147/89 99 06/27/21 09:12 75 24 147/89 06/27/21 09:06 18 06/27/21 09:05 71 18 06/27/21 09:01 97.8 F 77 18 147/89 100 Intake and Output 06/26/21 06/27/21 06/27/21 22:59 06:59 14:59 Output Total 150 Balance -150 Output: Urine 150 Other: Voiding Method Urinal Weight 83.915 kg Results CBC & Chem 7: 06/27/21 09:18 06/27/21 09:18 Labs: Abnormal Lab Results - Last 24 Hours (Table) 06/27/21 06/27/21 06/27/21 Range/Units 09:18 09:18 12:24 D-Dimer 1.08 H (<0.60) mg/L FEU Glucose 131 H (74-99) mg/dL POC Glucose (mg/dL) 102 H (75-99) mg/dL Thrombosis Risk Factor Assmnt - Choose All That Apply Other Risk Factors: Yes Each Risk Factor Represents 2 Points: Age 61-74 years Thrombosis Risk Factor Assessment Total Risk Factor Score: 2 Thrombosis Risk Factor Assessment Level: Low Risk
[2021-06-27] MEDS: AMIODARONE 450 MG in DEXTROSE 5% IN WATER 250 ML IV SCH ×2 (16:08)
[2021-06-27] MEDS ORDERED: VERAPAMIL 2.5 MG/ML 2 ML AMP ONE (17:07)
[2021-06-27] MEDS ORDERED: LIDOCAINE 1% INJ 10MG/ML (20 ML MDV) ONE (17:07)
[2021-06-27] MEDS ORDERED: HEPARIN SODIUM 1,000 UN/ML (10ML VL) ONE (17:36)
[2021-06-27] MEDS ORDERED: fentaNYL (PF) 50 MCG/ML 2 ML AMP ONE (17:37)
[2021-06-27] MEDS ORDERED: fentaNYL (PF) 50 MCG/ML 2 ML AMP IVP ONE (17:43)
[2021-06-27] MEDS ORDERED: LIDOCAINE 1% INJ 10MG/ML (20 ML MDV) SQ ONE (17:43)
[2021-06-27] MEDS ORDERED: MIDAZOLAM 2 MG/2 ML VIAL IVP ONE (17:43)
[2021-06-27] MEDS ORDERED: VERAPAMIL SYRINGE (5 MG/10 ML) INTRAARTER ONE (17:46)
[2021-06-27] MEDS ORDERED: SODIUM CHLORIDE 0.9% 1,000 ML IV ONE (17:53)
[2021-06-27] MEDS ORDERED: IOPAMIDOL-370 125ML BTL INJ ONE (17:58)
--- NOTE | 2021-06-27 18:15 | P.CARDCATH ---
Description of Procedure: PROCEDURES PERFORMED: Left heart catheterization, bilateral coronary angiography INDICATION: Cardiac arrest HISTORY: Patient is a pleasant 65-year-old male with a strong family history of coronary artery disease who has been having off-and-on chest pains or last 3 years. He admits sometimes these occur with exertion and sometimes he will have episodes where he will feel lightheaded and chest pain while at rest and this has been going on for the last few months and therefore decided to have it evaluated. Patient therefore underwent a treadmill stress test earlier today where he had a V. fib arrest approximately 6 minutes into recovery with successful CPR and defibrillation. He has been doing well since that time however given abnormal stress test and cardiac arrest heart catheterization was recommended. CONSENT:I have discussed the risks, benefits and alternative therapies for the above-mentioned procedure and for both sedation/analgesia as well as necessary blood product administration, if indicated, as they pertain to this patient. The patient has indicated understanding and acceptance of the risks and procedu res discussed. PROCEDURE: After the risks, benefits and alternatives of the above mentioned procedure explained in detail with the patient, informed consent was obtained. Patient was taken to the catheterization lab and prepped and draped in usual fashion. 1% lidocaine was used to anesthetize the right radial artery. A 6- Belarusian sheath was placed in the right radial artery using modified Seldinger technique. Left coronary angiography was performed with a 5-Belarusian JL 3.5 catheter and right coronary angiography was performed with a 5-Belarusian JR5 catheter in various views. A 5-[place]ian FR5 catheter was inserted into the left ventricle and pressure measurements were obtained. The right radial sheath was removed and a TR band was placed with hemostasis achieved. The patient tolerated the procedure well. Patient was transported back to the post catheterization holding area in stable condition. Conscious Sedation: Patient was monitored under the direct supervision of vision of myself for conscious sedation using Versed and fentanyl for a total duration of 17 minutes HEMODYNAMICS: Aorta 142/76 LV: 141/2, LVEDP 11 SELECTIVE CORONARY ARTERIOGRAPHY: LEFT MAIN: The left main is a large caliber vessel which bifurcates into the LAD and circumflex. There is no significant stenosis. LEFT ANTERIOR DESCENDING CORONARY ARTERY: LAD is a large caliber vessel which wraps around to the apex. The LAD has a diffuse 80% proximal stenosis and then immediately after a moderate caliber diagonal 1 branch the LAD has a 100% stenosis with left to left collaterals. The moderate caliber diagonal 1 branch has a mid 95% stenosis at the bifurcation of a superior and inferior branches. LEFT CIRCUMFLEX CORONARY ARTERY: Left circumflex is a large caliber vessel which is codominant and gives off a left PDA. There is a proximal 40% circumflex stenosis and then gives off a moderate to large caliber OM1 which has a tandem 95%, 90% stenosis. The distal circumflex has a 95% stenosis before giving off a PLV and a left PDA. RIGHT CORONARY ARTERY: The right coronary artery is a small caliber vessel which gives off a small caliber PDA. There is mid RCA 20-30% stenosis. FINAL IMPRESSION: 1. Multivessel coronary artery disease as described above including 80% proximal LAD, 100% proximal to mid LAD with left to left collaterals, 95% moderate caliber diagonal 1, 95% moderate to large caliber OM1 and 95% dominant distal circumflex. 2. Normal left sided filling pressures PLAN: 1. Aggressive risk factor modification per most recent ACC/AHA guidelines. 2. Evaluate for CABG.
[2021-06-27] MEDS ORDERED: RX INFO: IV CONTRAST WAS GIVEN 1 EACH MISC MISCELLANE PRN (18:16)
[2021-06-27] MEDS ORDERED: SODIUM CHLORIDE 0.9% 1,000 ML in EMPTY BAG 1 BAG IV SCH (23:00)
[2021-06-28 05:01] LABS: HCT 44.2 % (39.0-53.0); HGB 14.7 gm/dL (13.0-17.5); MCH 30.6 pg (25.0-35.0); MCHC 33.3 g/dL (31.0-37.0); MCV 91.8 fL (80.0-100.0); Mean Platelet Volume 8.3; Platelet Count 213 k/uL (150-450); RBC 4.82 m/uL (4.30-5.90); RDW 12.8 % (11.5-15.5)
[2021-06-28 05:15] LABS: African American GFR (CKD) >90 (>60 ml/min/1.73 sqM); Anion Gap 7 mmol/L; Blood Urea Nitrogen 15 mg/dL (9-20); Calcium 9.1 mg/dL (8.4-10.2); Carbon Dioxide 26 mmol/L (22-30); Chloride 105 mmol/L (98-107); Glucose 117 mg/dL (74-99); Non-African American GFR(CKD) >90 (>60 ml/min/1.73 sqM); Potassium 4.4 mmol/L (3.5-5.1); Sodium 138 mmol/L (137-145)
[2021-06-28] MEDS: AMIODARONE 450 MG in DEXTROSE 5% IN WATER 250 ML IV SCH ×2 (06:12)
[2021-06-28] MEDS ORDERED: ATORVASTATIN 80 MG TAB PO ONE (07:00)
[2021-06-28] MEDS ORDERED: HEPARIN SODIUM,PORCINE 2,500 UNIT in SODIUM CHLORIDE 0.9% 250 ML IRRIGATION PRN (07:00)
[2021-06-28] MEDS ORDERED: ASPIRIN 325 MG TAB PO ONE (07:00)
[2021-06-28] MEDS ORDERED: HEPARIN SODIUM,PORCINE 10,000 UNIT in SODIUM CHLORIDE 0.9% 1,000 ML IRRIGATION PRN (07:00)
--- NOTE | 2021-06-28 08:49 | P.PN ---
Subjective Patient is pleasant 65-year-old male with a history of hyperlipidemia family history of coronary artery disease chest pains who presented approximately one month ago to our cardiology office to be evaluated for episodes where he will feel fine for most the day and then have a 5-10 minute "spell" where he will feel short of breath and had chest tightness. These would normally only occur approximately once a week however were increasing in frequency. He also has been having some episodes of chest tightness if he overdoes things such as mowing the grass for the last few years. He therefore underwent workup with a treadmill stress test earlier today in the office. 3 minutes into recovery he was sitting in a chair and started to have ST downsloping noted in the inferior leads and then 6 minutes into recovery had a ventricular fibrillation arrest. Patient underwent CPR and then defibrillation and was then transferred to [facility]. Patient seen and examined in emergency department. Patient states that since that time he denies any chest pain or pressure, no shortness breath. He is feeling somewhat nauseous however improving. EKG shows normal sinus rhythm, Q waves V1 and V2, no significant ST depressions or T-wave abnor malities. Blood work shows white blood cell count 10.1, hemoglobin 15.4, d- dimer 1.0, BUN 17, creatinine 0.8, glucose 131, initial troponin less than 0.012. No current chest pain or pressure, feels well. 06/28 Patient seen and examined. Patient denies any chest pain or pressure. He underwent heart catheterization yesterday which showed multivessel disease. Being evaluated for CABG. He describes mild congestion no orthopnea. REVIEW OF SYSTEMS: At the time of my exam: CONSTITUTIONAL: Denies fever or chills. HEENT: Denies blurred vision, vision changes, or eye pain. Denies hemoptysis CARDIOVASCULAR: Denies chest pain. Denies orthopnea. Denies PND. Denies palpitations RESPIRATORY: Denies shortness of breath. GASTROINTESTINAL: Denies abdominal pain. Denies nausea or vomiting. HEMATOLOGIC: Denies bleeding disorders. GENITOURINARY: Denies any blood in urine. SKIN: Denies pruitis. Denies rash. PHYSICAL EXAM: VITAL SIGNS: Reviewed. GENERAL: Well-developed in no acute distress. HEENT: Head is normocephalic. Pupils are equal, round. Sclerae anicteric. Mucous membranes of the mouth are moist. Neck supple. No JVD or thyromegaly LUNGS: Respirations even and unlabored. Lungs with bilateral wheezing and bibasilar rales. HEART: Regular rate and rhythm. S1 and S2 heard. ABDOMEN: Soft. Nondistended. Nontender. EXTREMITIES: Normal range of motion. No clubbing or cyanosis. Peripheral pulses intact. Bilateral lower extremity edema noted, right worse than left NEUROLOGIC: Awake and alert. Oriented x 3. ASSESSMENT: 1. Status post cardiac arrest/Ventricular fibrillation during stress test 2. CAD with 80% proximal LAD, 100% proximal to mid LAD with left to left collaterals, 95% moderate caliber diagonal 1, 95% moderate to large caliber OM1 and 95% dominant distal circumflex. 3. Hyperlipidemia 4. Elevated d-dimer, do not suspect PE given clinical scenario PLAN: Patient underwent catheterization yesterday with multivessel CAD. Initiate CABG workup, cardiothoracic surgery recommendations appreciated. Continue heparin drip, aspirin, beta farhat, statin. Objective - Vital Signs Vital signs: Vital Signs Temp 97.8 F 06/28/21 04:00 Pulse 71 06/28/21 08:00 Resp 15 06/28/21 08:00 BP 138/84 06/28/21 08:00 Pulse Ox 91 L 06/28/21 08:00 Intake & Output 06/27/21 06/28/21 06/28/21 18:59 06:59 18:59 Intake Total 350 732.116 Output Total 350 850 0 Balance 0 -117.884 0 Weight 83.915 kg 85.5 kg Intake: IV 50 Intake, IV Titration 432.116 Amount Amiodarone 450 mg In 234.449 Dextrose 5% in Water 250 ml @ 0.5 MG/MIN 16.667 mls/hr IV .Q15H [facility] Rx#: [id number] Heparin Sod,Pork in 0.45% 197.667 NaCl 25,000 unit In 0.45 % NaCl 1 250ml.bag @ 11. 917 UNITS/KG/HR 10 mls/hr IV .Q24H [facility] Rx#: [id number] Oral 300 300 Output: Urine 350 850 0 Other: Voiding Method Urinal Urinal # Voids 0 - Labs CBC & Chem 7: 06/28/21 04:24 06/28/21 04:24 Labs: Abnormal Lab Results - Last 24 Hours (Table) 06/27/21 06/27/21 06/27/21 Range/Units 09:18 09:18 12:24 APTT (22.0-30.0) sec D-Dimer 1.08 H (<0.60) mg/L FEU Glucose 131 H (74-99) mg/dL POC Glucose (mg/dL) 102 H (75-99) mg/dL 06/28/21 06/28/21 Range/Units 04:24 04:24 APTT 31.8 H (22.0-30.0) sec D-Dimer (<0.60) mg/L FEU Glucose 117 H (74-99) mg/dL POC Glucose (mg/dL) (75-99) mg/dL
--- NOTE | 2021-06-28 09:00 | P.GSCN ---
History of Present Illness Consult date: 06/28/21 Reason for Consult: Coronary artery disease Requesting physician: Jam Street History of present illness: This is a 65-year-old male who follows on an outpatient basis with Dr. Pimentel for primary care as well as recently establishing cardiology care with Dr. Street. He has a previous medical history of hypertension, hyperlipidemia, never smoker, orthopedic surgeries, and significant family history including premature coronary artery disease with mother having myocardial infarction at less than 50 years old. This gentleman reports approximately 1 year history of intermittent chest pain and shortness of breath which resolves on its own after a few minutes, mostly with activity. Recently these episodes have been occurring with increasing frequency and have occurred at rest so he felt he shou ld have this evaluated. He establish care at [facility] with Dr. Street. Yesterday he was undergoing stress testing, he experienced V. fib arrest, received CPR and was shocked one time with ROSC and return of sinus rhythm. He was started on IV amiodarone and transported to [facility] for further evaluation and treatment. He underwent heart catheterization yesterday which demonstrated proximal LAD stenosis 80%, mid LAD stenosis 100%, first diagonal stenosis 95%, proximal circumflex stenosis 40%, first obtuse marginal artery stenosis 95%, and distal circumflex stenosis 95%. Due to these findings consultation was placed to cardiothoracic surgery for surgical revascularization recommendations. Review of Systems Review of systems was completed and was negative except as noted - Cardiovascular Reports as per HPI, Reports chest pain, Reports shortness of breath Past Medical History Past Medical History: Coronary Artery Disease (CAD), Hyperlipidemia, Hypertension, Osteoarthritis (OA) History of Any Multi-Drug Resistant Organisms: None Reported Past Surgical History: Orthopedic Surgery Additional Past Surgical History / Comment(s): right rotator cuff repair,right little finger surg, right hip Past Anesthesia/Blood Transfusion Reactions: No Reported Reaction Past Psychological History: No Psychological Hx Reported Smoking Status: Never smoker Past Alcohol Use History: None Reported Past Drug Use History: None Reported - Past Family History Mother Family Medical History: No Reported History, Coronary Artery Disease (CAD), Myocardial Infarction ([place]) Additional Family Medical History / Comment(s): CABG surgery; [place] at less than 50 years old Father Family Medical History: Coronary Artery Disease (CAD), Myocardial Infarction ([place]) Additional Family Medical History / Comment(s): CABG Brother(s) Family Medical History: Congestive Heart Failure (CHF), Coronary Artery Disease (CAD), Myocardial Infarction ([place]) Additional Family Medical History / Comment(s): from congestive heart failure Sister(s) Family Medical History: AFIB Medications and Allergies Home Medications Medication Instructions Recorded Confirmed Type Aspirin EC [Ecotrin Low Dose] 81 mg PO DAILY 06/27/21 06/27/21 History Metoprolol Succinate [Toprol XL] 25 mg PO DAILY 06/27/21 06/27/21 History Rosuvastatin [Crestor] 20 mg PO DAILY 06/27/21 06/27/21 History Allergies Allergy/AdvReac Type Severity Reaction Status Date / Time No Known Allergies Allergy Verified 06/27/21 09:26 Surgical - Exam Vital Signs Temp Pulse Resp BP Pulse Ox 97.8 F 77 18 147/89 100 06/27/21 09:01 06/27/21 09:01 06/27/21 09:01 06/27/21 09:01 06/27/21 09:01 CONSTITUTIONAL: Awake and alert, appears comfortable, cooperative, well- developed, well-nourished, no pain, no acute distress EYES: Pupils equal, round, reactive to light, normal ocular movement ENT: Moist mucous membranes without oral lesions present NECK: No masses, no bruits, trachea midline RESPIRATORY: Lungs sounds clear to auscultation bilaterally. Respirations even, nonlabored. Currently on room air with oxygen saturation 94%. Strong cough. No chest wall deformities. No clubbing or cyanosis present CARDIOVASCULAR: S1, S2 present. Regular rate and rhythm, sinus rhythm on telemetry. Palpable peripheral pulses bilaterally. No edema present. No calf pain or tenderness noted. No significant lower extremity varicosities noted. GASTROINTESTINAL: Abdomen soft, nontender, nondistended without masses or organomegaly noted. There is no rebound or guarding present. Active bowel sounds present 4 quadrants. GENITOURINARY: Deferred INTEGUMENTARY: Skin is warm and dry with evidence of good perfusion. NEUROLOGIC: Cranial nerves II through XII intact, normal coordination, no obvious motor or sensory deficits, speech is normal MUSKULOSKELETAL: Able to move all extremities, strength equal bilaterally, normal posture PSYCHIATRIC: Alert and oriented to person place and time, appropriate affect, intact judgment and insight Results - Labs 06/28/21 04:24 06/28/21 04:24 Abnormal Lab Results - Last 24 Hours (Table) 06/27/21 06/27/21 06/27/21 Range/Units 09:18 09:18 12:24 APTT (22.0-30.0) sec D-Dimer 1.08 H (<0.60) mg/L FEU Glucose 131 H (74-99) mg/dL POC Glucose (mg/dL) 102 H (75-99) mg/dL 06/28/21 06/28/21 Range/Units 04:24 04:24 APTT 31.8 H (22.0-30.0) sec D-Dimer (<0.60) mg/L FEU Glucose 117 H (74-99) mg/dL POC Glucose (mg/dL) (75-99) mg/dL Diabetes panel 06/27/21 06/28/21 Range/Units 09:18 04:24 Sodium 140 138 (137-145) mmol/L Potassium 4.3 4.4 (3.5-5.1) mmol/L Chloride 107 105 (98-107) mmol/L Carbon Dioxide 22 26 (22-30) mmol/L BUN 17 15 (9-20) mg/dL Creatinine 0.83 0.85 (0.66-1.25) mg/dL Glucose 131 H 117 H (74-99) mg/dL Calcium 9.3 9.1 (8.4-10.2) mg/dL AST 42 (17-59) U/L ALT 44 (4-49) U/L Alkaline Phosphatase 103 (38-126) U/L Total Protein 7.4 (6.3-8.2) g/dL Albumin 4.6 (3.5-5.0) g/dL Thyroid panel 06/27/21 Range/Units 09:18 TSH 3.040 (0.465-4.680) mIU/L Calcium panel 06/27/21 06/28/21 Range/Units 09:18 04:24 Calcium 9.3 9.1 (8.4-10.2) mg/dL Albumin 4.6 (3.5-5.0) g/dL Pituitary panel 06/27/21 06/28/21 Range/Units 09:18 04:24 Sodium 140 138 (137-145) mmol/L Potassium 4.3 4.4 (3.5-5.1) mmol/L Chloride 107 105 (98-107) mmol/L Carbon Dioxide 22 26 (22-30) mmol/L BUN 17 15 (9-20) mg/dL Creatinine 0.83 0.85 (0.66-1.25) mg/dL Glucose 131 H 117 H (74-99) mg/dL Calcium 9.3 9.1 (8.4-10.2) mg/dL TSH 3.040 (0.465-4.680) mIU/L Adrenal panel 06/27/21 06/28/21 Range/Units 09:18 04:24 Sodium 140 138 (137-145) mmol/L Potassium 4.3 4.4 (3.5-5.1) mmol/L Chloride 107 105 (98-107) mmol/L Carbon Dioxide 22 26 (22-30) mmol/L BUN 17 15 (9-20) mg/dL Creatinine 0.83 0.85 (0.66-1.25) mg/dL Glucose 131 H 117 H (74-99) mg/dL Calcium 9.3 9.1 (8.4-10.2) mg/dL Total Bilirubin 0.5 (0.2-1.3) mg/dL AST 42 (17-59) U/L ALT 44 (4-49) U/L Alkaline Phosphatase 103 (38-126) U/L Total Protein 7.4 (6.3-8.2) g/dL Albumin 4.6 (3.5-5.0) g/dL - Imaging Chest x-ray: report reviewed, image reviewed EKG: image reviewed Additional studies: Her catheterization and echocardiogram films reviewed with Dr. Kaufman Assessment and Plan Assessment: 1. Coronary artery disease 2. Status post V. fib arrest with defibrillation 1 in CPR, return of ROSC 3. History of hyperlipidemia, stopped medication a few years ago 4. Hypertension 5. Never smoker 6. Family history of heart disease including premature coronary artery disease with mother having myocardial infarction at less than 50 years old Plan: The patient was seen and examined at the bedside with Dr. Kaufman. Chart/diagnostics reviewed. The usual perioperative course of coronary artery bypass surgery was discussed in detail with the patient, risks and benefits were reviewed, all questions were answered. The patient does give consent for surgery. Preoperative testing was initiated. Once completed we will calculate STS risk score and discussed with the patient. We will perform 5 beta farhat test. Recommend continuation of aspirin, statin, beta farhat therapy. Continue amiodarone per cardiology. Increase activity, ambulate as tolerated. Pulmonology consulted, appreciate recommendations for surgical clearance. Medical management of other comorbidities per primary care service. Pending the results of preoperative testing we will plan for coronary artery bypass surgery soon. More recommendations to follow. Thank you Dr. Street for this consult. We look forward to working with you in the care of your patient. Time with Patient: Greater than 30
--- NOTE | 2021-06-28 09:51 | ECHOF ---
Referral Reason:LV function MEASUREMENTS -------- HEIGHT: 182.9 cm WEIGHT: 122.9 kg BP: RVIDd: 2.2 cm (< 3.3) IVSd: 1.3 cm (0.6 - 1.1) LVIDd: 5.2 cm (3.9 - 5.3) LVPWd: 1.4 cm (0.6 - 1.1) IVSs: 1.7 cm LVIDs: 3.8 cm LVPWs: 1.4 cm LA Diam: 3.0 cm (2.7 - 3.8) Ao Diam: 2.7 cm (2.0 - 3.7) AV Cusp: 1.7 cm (1.5 - 2.6) MV EXCURSION: 21.518 mm (> 18.000) MV EF SLOPE: 96 mm/s (70 - 150) EPSS: 0.8 cm MV E Gino: 0.49 m/s MV DecT: 171 ms MV A Gino: 0.78 m/s MV E/A Ratio: 0.62 RAP: 5.00 mmHg RVSP: 27.81 mmHg FINDINGS -------- Sinus rhythm. This was a techncally difficult study with suboptimal views, , Lumason utilized for enhancement of im ages. The left ventricular size is normal. There is mild concentric left ventricular hypertrophy. Overa ll left ventricular systolic function is mild-moderately impaired with, an EF between 40 - 45 %. An terseptal Hypokinesis Septal Hypokinesis [place] Hypokinesis. The right ventricle is normal in size. The left atrial size is normal. The right atrial size is normal. 5.0mg OF Lumason UTLIZED: 2 OR MORE WALL SEGMENTS NOT VISUALIZED. There is mild aortic regurgitation. Mild mitral annular calcification present. Mild mitral regurgitation is present. Mild tricuspid regurgitation present. Right ventricular systolic pressure is normal at < 35 mmHg. The pulmonic valve was not well visualized. Echo free space represents a pericardial fat pad. CONCLUSIONS -------- 1. This was a techncally difficult study with suboptimal views, , Lumason utilized for enhancement of images. 2. The left ventricular size is normal. 3. There is mild concentric left ventricular hypertrophy. 4. Overall left ventricular systolic function is mild-moderately impaired with, an EF between 40 - 45 %. 5. Anterseptal Hypokinesis 6. Septal Hypokinesis 7. [place] Hypokinesis. 8. The right ventricle is normal in size. 9. The left atrial size is normal. 10. The right atrial size is normal. 11. 5.0mg OF Lumason UTLIZED: 2 OR MORE WALL SEGMENTS NOT VISUALIZED. 12. There is mild aortic regurgitation. 13. Mild mitral annular calcification present. 14. Mild mitral regurgitation is present. 15. Mild tricuspid regurgitation present. 16. The pulmonic valve was not well visualized. 17. Echo free space represents a pericardial fat pad. [employer] SUPERVISOR: Monica Alexandre RDCS
[2021-06-28] MEDS: METOPROLOL SUCCINATE (ER) 25 MG TAB.ER.24H PO SCH (10:00)
--- NOTE | 2021-06-28 10:32 | US ---
EXAMINATION TYPE: US carotid duplex BILAT DATE OF EXAM: 06/28/2021 COMPARISON: NONE CLINICAL HISTORY: preop cardiac surgery. pre op cardiac surgery EXAM MEASUREMENTS: RIGHT: Peak Systolic Velocity (PSV) cm/sec ----- Right CCA: 111.8 ----- Right ICA: 132.3 ----- Right ECA: 99.5 ICA/CCA ratio: 1.2 RIGHT: End Diastole cm/sec ----- Right CCA: 37.7 ----- Right ICA: 51.5 ----- Right ECA: 12.8 LEFT: Peak Systolic Velocity (PSV) cm/sec ----- Left CCA: 111.3 ----- Left ICA: 102.1 ----- Left ECA: 116.1 ICA/CCA ratio: 0.9 LEFT: End Diastole cm/sec ----- Left CCA: 30.5 ----- Left ICA: 43.9 ----- Left ECA: 14.4 VERTEBRALS (direction of flow): Right Vertebral: Antegrade Left Vertebral: Antegrade Rhythm: Normal Mild plaque bilateral bifurcations. no evidence of significant stenosis IMPRESSION: 1. Mild atherosclerotic plaque with no significant hemodynamic stenosis. Criteria for Assigning % of Stenosis / Diameter reduction (Estimation based on the indirect measurements of the internal carotid artery velocities (ICA PSV). 1. Normal (no stenosis)=ICA PSV < 125 cm/s: ratio < 2.0: ICA EDV<40 cm/s. 2. Less than 50% stenosis=ICA PSV < 125 cm/s: ratio < 2.0: ICA EDV<40 cm/s. 3. 50 to 69% stenosis=ICA PSV of 125 to 230 cm/s: ration 2.0 ? 4.0: ICA EDV 40-100 cm/s. 4. Greater than 70% stenosis to near occlusion= ICA PSV > 230 cm/s: ratio > 4.0: ICA EDV > 100 cm/s. 5. Near occlusion= ICA PSV velocities may be low or undetectable: variable ratio and ICA EDV. 6. Total occlusion=unable to detect flow.
--- NOTE | 2021-06-28 11:34 | P.PN ---
Subjective Progress Note Date: 06/28/21 This is a 65-year-old male patient of Dr. Pimentel, with past medical history of hyperlipidemia, osteoarthritis, patient is a nonsmoker, who was getting a cardiac workup which also included a stress test at the [facility] today. Patient was wearing a heart monitor for the last month because of episodes of exertional dyspnea, however at the time of his stress test the monitor was off. During his stress test patient went into ventricular fibrillation cardiac arrest. CPR was started for 1-1/2 minutes when the EEG was applied and a shock was delivered and patient was back in sinus rhythm. He regained consciousness immediately he was given 150 mg of IV push amiodarone, transported by EMS to the emergency department for further evaluation and management. Patient is awake and alert in the emergency department, complaining of some soreness to his chest, and nausea. EKG was obtained showing sinus mechanism with first-degree AV block and a rate of 73 BPM. He has evidence of Q wave in the leads 3 and aVF, and leads V2, V3. Cardiology is on the case, and evaluating the patient in the emergency department. Chest x-ray was obtained showing heart upper limits of normal in size, no acute cardiopulmonary process. Patient is breathing comfortably, he is on 2 L of oxygen pulse ox is 100%, afebrile, blood pressure is 147/89. She labs have been reviewed, CBC was within normal limits with white blood cell count of 10.1, hemoglobin of 15.4, with a count is 261, d-dimer was 1.08, coagulation profile was within normal limits, electrolytes and renal profile were unremarkable, first troponin was less than 0.012, TSH was 3.040. Patient is on point tenderness a ramy at 20 ML per hour, he is currently on amiodarone infusion at 1 mg/m, and heparin infusion per weight-based protocol, he was given Lipitor 80 mg. His home dose 81 mg aspirin, Toprol-XL has been restarted. Echocardiogram is pending, COVID-19 PCR is pending. Admission to the intensive care unit was requested, patient is currently awaiting a bed in the ICU. On 06/28/2021 patient seen in follow-up in intensive care unit. He is currently having a 2-D echo completed. She is resting comfortably in bed, denies any chest pain or shortness of breath, her pulse ox is 93-94%, afebrile, hemodynamically patient is stable. Patient is currently on amiodarone infusion at 0.5 mg/h, and heparin infusion per weight-based protocol, he was taken to the [facility] last night for cardiac catheterization which revealed multivessel coronary artery disease including 80% proximal LAD stenosis, 100% proximal to mid LAD with left to left collaterals, and 95% moderate diagonal 1, 95% moderate to large caliber OM1 and 95%, distal circumflex. His LVEDP was 11. CT surgery has been consulted for coronary artery revascularization surgery. Patient was seen by CT surgery, and is currently undergoing preop evaluation. No acute events overnight. No episodes of arrhythmia's. Today's labs have been reviewed, white blood cell count is 9, hemoglobin is 14.7, electrolytes and renal profile were within normal limits. Objective - Vital Signs Vital signs: Vital Signs Temp 97.8 F 06/28/21 04:00 Pulse 71 06/28/21 10:00 Resp 15 06/28/21 10:00 BP 136/90 06/28/21 10:00 Pulse Ox 93 L 06/28/21 10:00 Intake & Output 06/27/21 06/28/21 06/28/21 18:59 06:59 18:59 Intake Total 350 732.116 Output Total 350 850 400 Balance 0 -117.884 -400 Weight 83.915 kg 85.5 kg Intake: IV 50 Intake, IV Titration 432.116 Amount Amiodarone 450 mg In 234.449 Dextrose 5% in Water 250 ml @ 0.5 MG/MIN 16.667 mls/hr IV .Q15H [facility] Rx#: [id number] Heparin Sod,Pork in 0.45% 197.667 NaCl 25,000 unit In 0.45 % NaCl 1 250ml.bag @ 11. 917 UNITS/KG/HR 10 mls/hr IV .Q24H [facility] Rx#: [id number] Oral 300 300 Output: Urine 350 850 400 Other: Voiding Method Urinal Urinal Urinal # Voids 0 0 - Exam GENERAL EXAM: Alert, very pleasant, 65-year-old white male, room air pulse ox is 93-94% comfortable in no apparent distress. HEAD: Normocephalic/atraumatic. EYES: Normal reaction of pupils, equal size. Conjunctiva pink, sclera white. NOSE: Clear with pink turbinates. THROAT: No erythema or exudates. NECK: No masses, no JVD, no thyroid enlargement, no adenopathy. CHEST: No chest wall deformity. Symmetrical expansion. LUNGS: Equal air entry with no crackles, wheeze, rhonchi or dullness. CVS: Regular rate and rhythm, normal S1 and S2, no gallops, no murmurs, no rubs ABDOMEN: Soft, nontender. No hepatosplenomegaly, normal bowel sounds, no guarding or rigidity. EXTREMITIES: No clubbing, no edema, no cyanosis, 2+ pulses and upper and lower extremities. MUSCULOSKELETAL: Muscle strength and tone normal. SPINE: No scoliosis or deformity SKIN: No rashes CENTRAL NERVOUS SYSTEM: Alert and oriented -3. No focal deficits, tone is normal in all 4 extremities. PSYCHIATRIC: Alert and oriented -3. Appropriate affect. Intact judgment and insight. - Labs CBC & Chem 7: 06/28/21 04:24 06/28/21 04:24 Labs: Abnormal Lab Results - Last 24 Hours (Table) 06/27/21 06/28/21 06/28/21 Range/Units 12:24 04:24 04:24 APTT 31.8 H (22.0-30.0) sec Glucose 117 H (74-99) mg/dL POC Glucose (mg/dL) 102 H (75-99) mg/dL Assessment and Plan Plan: Assessment: #1. Acute cardiac arrest related to ventricular fibrillation, during a outpatient stress test, requiring CPR, and defibrillation and return of spontaneous circulation. on amiodarone infusion #2. Multivessel coronary artery disease, awaiting coronary artery bypass grafting surgery #3. Hyperlipidemia #4. Osteoarthritis #5. Nonsmoker #6. Elevated d-dimer, nonspecific #7. Exertional dyspnea for the past 3 months, under investigation by cardiology Plan: no recurrence of arrhythmia, no chest pain, or shortness of breath Continue antiarrhythmics and anticoagulation per cardiology Remains in sinus mechanism, Found to have multivessel coronary artery disease CT surgery is consulted undergoing pre-op CABG evaluation Bedside FEV1 I performed a history & physical examination of the patient and discussed their management with my nurse practitioner, Yudi Streeter. I reviewed the nurse practitioner's note and agree with the documented findings and plan of care. Lung sounds are positive for clear breath sounds throughout the lung tran. The findings and the impression was discussed with the patient. I attest to the documentation by the nurse practitioner. Time with Patient: Less than 30
[2021-06-28 12:09] LABS: Appearance,Urine Clear (Clear); Bilirubin,Urine Negative (Negative); Blood,Urine Negative (Negative); Color,Urine Light Yellow; Glucose,Urine (UA) Negative (Negative); Ketones,Urine Negative (Negative); Leukocyte Esterase,Urine Negative (Negative); Nitrite,Urine Negative (Negative); PH, Urine 5.5 (5.0-8.0); Protein,Urine Negative (Negative); Specific Gravity,Urine 1.011 (1.001-1.035); Urobilinogen,Urine <2.0 mg/dL (<2.0)
[2021-06-28] MEDS: HEPARIN SOD,PORK IN 0.45% NACL 25,000 UNIT in 0.45% NACL 1 250ML.BAG IV SCH (12:20)
--- NOTE | 2021-06-28 14:22 | P.PN ---
Subjective History of Present Illness Patient is a pleasant 65-year-old male came in after cardiac respiratory arrest and patient is found to be in V. tach this happened when when patient was having a stress test.. His EKG did show sinus rhythm with the Q waves in V1 and V2 and probably ST depressions in leads 2 and V5. Patient's troponin is negative. Patient denied any symptoms at this time patient today. Patient denied any nausea vomiting chest pain. 06/28/2021 Patient underwent cardiac catheterization which showed a triple vessel disease patient will be evaluated by cardiac thoracic surgery echocardiac exam showed mildly decreased EF of around 40-45%. Constitutional: Denied any fatigue denied any fever. Cardio vascular: denied any chest pain, palpitations Gastrointestinal denied any nausea vomiting Pulmonary: Denied any shortness of breath cough Neurologic denied any new focal deficits All inpatient medications were reviewed and appropriate changes in these medications as dictated in the interval history and assessment and plan. PHYSICAL EXAMINATION: GENERAL: The patient is alert and oriented x3, not in any acute distress. Well developed, well nourished. HEENT: Pupils are round and equally reacting to light. EOMI. No scleral icterus. No conjunctival pallor. Normocephalic, atraumatic. No pharyngeal erythema. No thyromegaly. CARDIOVASCULAR: S1 and S2 present. No murmurs, rubs, or gallops. PULMONARY: Chest is clear to auscultation, no wheezing or crackles. ABDOMEN: Soft, nontender, nondistended, normoactive bowel sounds. No palpable organomegaly. MUSCULOSKELETAL: No joint swelling or deformity. EXTREMITIES: No cyanosis, clubbing, or pedal edema. NEUROLOGICAL: Gross neurological examination did not reveal any focal deficits. SKIN: No rashes. Assessment and plan -Cardiac respiratory arrest secondary to coronary artery disease and the patient and into V. tach during stress test -Coronary artery disease 2 vessel disease patient is being evaluated by car to thoracic surgery for CABG and the patient can use to be on IV heparin. -Hyperlipidemia -Mildly elevated d-dimer. Pretest probability for pulmonary malaise and is low and the d-dimer elevation is secondary to cardiorespiratory arrest DVT prophylaxis: Patient is presently on IV heparin for coronary artery disease Objective - Vital Signs Vital signs: Vital Signs Temp 97.8 F 06/28/21 04:00 Pulse 73 06/28/21 11:00 Resp 15 06/28/21 11:00 BP 128/82 06/28/21 11:00 Pulse Ox 94 L 06/28/21 11:00 Intake & Output 06/27/21 06/28/21 06/28/21 18:59 06:59 18:59 Intake Total 350 732.116 52.333 Output Total 350 850 400 Balance 0 -117.884 -347.667 Weight 83.915 kg 85.5 kg Intake: IV 50 Intake, IV Titration 432.116 52.333 Amount Amiodarone 450 mg In 234.449 Dextrose 5% in Water 250 ml @ 0.5 MG/MIN 16.667 mls/hr IV .Q15H [facility] Rx#: [id number] Heparin Sod,Pork in 0.45% 197.667 52.333 NaCl 25,000 unit In 0.45 % NaCl 1 250ml.bag @ 11. 917 UNITS/KG/HR 10 mls/hr IV .Q24H [facility] Rx#: [id number] Oral 300 300 Output: Urine 350 850 400 Other: Voiding Method Urinal Urinal Urinal # Voids 0 0 - Labs CBC & Chem 7: 06/28/21 04:24 06/28/21 04:24 Labs: Abnormal Lab Results - Last 24 Hours (Table) 06/28/21 06/28/21 06/28/21 Range/Units 04:24 04:24 11:22 APTT 31.8 H 42.6 H (22.0-30.0) sec Glucose 117 H (74-99) mg/dL
[2021-06-28] MEDS: SODIUM CHLORIDE 0.9% 1,000 ML IV SCH (14:56)
[2021-06-29 04:45] LABS: Hepatitis A Antibody IgM Nonreactive (Nonreactive); Hepatitis B Core IgM Nonreactive (Nonreactive); Hepatitis B Surface Antigen Nonreactive (Nonreactive); Hepatitis C IgG Antibody Nonreactive (Nonreactive)
[2021-06-29 05:30] LABS: Basophils # (A) 0.1 k/uL (0-0.2); Basophils % (A) 1 %; Eosinophils # (A) 0.1 k/uL (0-0.7); Eosinophils % (A) 1 %; HCT 43.5 % (39.0-53.0); HGB 15.1 gm/dL (13.0-17.5); Lymphocytes # (A) 2.5 k/uL (1.0-4.8); Lymphocytes % (A) 28 %; MCH 31.3 pg (25.0-35.0); MCHC 34.7 g/dL (31.0-37.0); MCV 90.2 fL (80.0-100.0); Mean Platelet Volume 8.1; Monocytes # (A) 0.4 k/uL (0-1.0); Monocytes % (A) 5 %; Neutrophils # (A) 5.5 k/uL (1.3-7.7); Neutrophils % (A) 63 %; Platelet Count 232 k/uL (150-450); RBC 4.83 m/uL (4.30-5.90); RDW 13.3 % (11.5-15.5); WBC 8.7 k/uL (3.8-10.6)
[2021-06-29 05:45] LABS: Partial Thromboplastin Time 69.7 sec (22.0-30.0); Prothrombin Time 10.8 sec (9.0-12.0)
[2021-06-29] MEDS: HEPARIN SOD,PORK IN 0.45% NACL 25,000 UNIT in 0.45% NACL 1 250ML.BAG IV SCH (05:53)
[2021-06-29 05:56] LABS: ALT 40 U/L (4-49); AST 33 U/L (17-59); African American GFR (CKD) >90 (>60 ml/min/1.73 sqM); Albumin 4.2 g/dL (3.5-5.0); Alkaline Phosphatase 94 U/L (38-126); Anion Gap 7 mmol/L; Blood Urea Nitrogen 16 mg/dL (9-20); Calcium 9.3 mg/dL (8.4-10.2); Carbon Dioxide 27 mmol/L (22-30); Chloride 104 mmol/L (98-107); Glucose 109 mg/dL (74-99); Non-African American GFR(CKD) >90 (>60 ml/min/1.73 sqM); Potassium 4.6 mmol/L (3.5-5.1); Sodium 138 mmol/L (137-145); Total Bilirubin 0.4 mg/dL (0.2-1.3); Total Protein 6.8 g/dL (6.3-8.2)
--- NOTE | 2021-06-29 08:17 | P.PN ---
Subjective Progress Note Date: 06/29/21 Principal diagnosis: Coronary artery disease, status post V. fib arrest with defibrillation 1 in CPR, return of ROSC, mildly impaired left ventricular systolic function with EF 40-45%. Previous medical history of hyperlipidemia, never smoker, and family history of heart disease including premature coronary artery disease with mother having myocardial infarction at less than 50 years old The patient was seen and examined sitting up in the intensive care unit this morning in no acute distress. Denies any chest pain or shortness of breath. Remains in sinus rhythm and hemodynamically stable, currently on IV heparin. Anticipates CABG tomorrow, no new questions. Objective - Vital Signs Vital signs: Vital Signs Temp 97.9 F 06/29/21 04:00 Pulse 77 06/29/21 07:00 Resp 15 06/29/21 07:00 BP 141/83 06/29/21 07:00 Pulse Ox 93 L 06/29/21 07:00 Intake & Output 06/28/21 06/29/21 06/29/21 18:59 06:59 18:59 Intake Total 52.333 749.091 Output Total 1100 1050 0 Balance -1047.667 -300.909 0 Weight 81.193 kg Intake: Intake, IV Titration 52.333 249.091 Amount Heparin Sod,Pork in 0.45% 52.333 249.091 NaCl 25,000 unit In 0.45 % NaCl 1 250ml.bag @ 11. 917 UNITS/KG/HR 10 mls/hr IV .Q24H [facility] Rx#: [id number] Oral 500 Output: Urine 1100 1050 0 Other: Voiding Method Urinal Urinal # Voids 0 - Exam CONSTITUTIONAL: Appears comfortable, cooperative, no acute distress RESPIRATORY: Lungs sounds diminished bilaterally. Respirations even, nonlabored. Currently on room air with oxygen saturation 93%. Able to achieve 2500 mL on incentive spirometry. Strong cough. CARDIOVASCULAR: S1, S2 present. Regular rate and rhythm, sinus rhythm on telemetry. Palpable peripheral pulses bilaterally. No edema present. No calf pain or tenderness noted. GASTROINTESTINAL: Abdomen soft, nontender, nondistended. Active bowel sounds present 4 quadrants. Tolerating diet. GENITOURINARY: Continues to void INTEGUMENTARY: Skin is warm and dry with evidence of good perfusion. NEUROLOGIC: Cranial nerves II through XII intact MUSKULOSKELETAL: Able to move all extremities, strength equal bilaterally, gait normal PSYCHIATRIC: Alert and oriented to person place and time, appropriate affect, intact judgment and insight - Allied health notes Allied health notes reviewed: nursing - Labs CBC & Chem 7: 06/29/21 05:10 06/29/21 05:10 Labs: Abnormal Lab Results - Last 24 Hours (Table) 06/28/21 06/28/21 06/29/21 Range/Units 11:22 18:18 05:10 APTT 42.6 H 62.8 H 69.7 H (22.0-30.0) sec Glucose (74-99) mg/dL 06/29/21 Range/Units 05:10 APTT (22.0-30.0) sec Glucose 109 H (74-99) mg/dL - Imaging and Cardiology All preoperative testing reviewed Assessment and Plan Assessment: 1. Coronary artery disease 2. Status post V. fib arrest with defibrillation 1 in CPR, return of ROSC 3. History of hyperlipidemia 4. Never smoker, preoperative FEV1 73% of predicted 5. Family history of heart disease including premature coronary artery disease with mother having myocardial infarction at less than 50 years old 6. Completed Moderna vaccination, last dose November 2020 Plan: 1. Continue aspirin, statin, beta farhat therapy, IV heparin 2. Encourage incentive spirometry use 3. Increase activity, ambulate as tolerated 4. STS risk score was calculated, patient felt to be low risk 5. 5 m walk test was performed yesterday by cardiac rehab 6. Our plan is for off-pump myocardial revascularization with left internal mammary artery, endoscopic vein harvest, possible left radial artery harvest, and exclusion of the left atrial appendage tomorrow, 06/30/[address] Kaufman 7. Patient is to be NPO after midnight, IV heparin to be discontinued international representative to the OR 8. Medical management of other comorbidities per primary care service 9. More recommendations to follow Time with Patient: Greater than 30
[2021-06-29] MEDS ORDERED: ASPIRIN 81 MG PO SCH (09:00)
[2021-06-29] MEDS ORDERED: ATORVASTATIN 40 MG TAB PO SCH (09:00)
--- NOTE | 2021-06-29 09:41 | P.PN ---
Subjective Patient is pleasant 65-year-old male with a history of hyperlipidemia family history of coronary artery disease chest pains who presented approximately one month ago to our cardiology office to be evaluated for episodes where he will feel fine for most the day and then have a 5-10 minute "spell" where he will feel short of breath and had chest tightness. These would normally only occur approximately once a week however were increasing in frequency. He also has been having some episodes of chest tightness if he overdoes things such as mowing the grass for the last few years. He therefore underwent workup with a treadmill stress test earlier today in the office. 3 minutes into recovery he was sitting in a chair and started to have ST downsloping noted in the inferior leads and then 6 minutes into recovery had a ventricular fibrillation arrest. Patient underwent CPR and then defibrillation and was then transferred to [facility]. Patient seen and examined in emergency department. Patient states that since that time he denies any chest pain or pressure, no shortness breath. He is feeling somewhat nauseous however improving. EKG shows normal sinus rhythm, Q waves V1 and V2, no significant ST depressions or T-wave abnor malities. Blood work shows white blood cell count 10.1, hemoglobin 15.4, d- dimer 1.0, BUN 17, creatinine 0.8, glucose 131, initial troponin less than 0.012. No current chest pain or pressure, feels well. 06/28 Patient seen and examined. Patient denies any chest pain or pressure. He underwent heart catheterization yesterday which showed multivessel disease. Being evaluated for CABG. He describes mild congestion no orthopnea. 06/29 Patient seen and examined. Patient denies any chest pain or pressure. Blood pressures at been well controlled. No significant events on telemetry. PHYSICAL EXAM: VITAL SIGNS: Reviewed. GENERAL: Well-developed in no acute distress. HEENT: Head is normocephalic. Pupils are equal, round. Sclerae anicteric. Mucous membranes of the mouth are moist. Neck supple. No JVD or thyromegaly LUNGS: Respirations even and unlabored. Lungs with bilateral wheezing and bibasilar rales. HEART: Regular rate and rhythm. S1 and S2 heard. ABDOMEN: Soft. Nondistended. Nontender. EXTREMITIES: Normal range of motion. No clubbing or cyanosis. Peripheral pulses intact. Bilateral lower extremity edema noted, right worse than left NEUROLOGIC: Awake and alert. Oriented x 3. ASSESSMENT: 1. Status post cardiac arrest/Ventricular fibrillation during stress test 2. CAD with 80% proximal LAD, 100% proximal to mid LAD with left to left collaterals, 95% moderate caliber diagonal 1, 95% moderate to large caliber OM1 and 95% dominant distal circumflex. 3. Hyperlipidemia 4. Elevated d-dimer, do not suspect PE given clinical scenario PLAN: Continue with current medical regimen. Patient does admit to some constipation we will add Colace. CABG tomorrow. Continue heparin drip for now. Objective - Vital Signs Vital signs: Vital Signs Temp 97.9 F 06/29/21 04:00 Pulse 77 06/29/21 07:00 Resp 15 06/29/21 07:00 BP 141/83 06/29/21 07:00 Pulse Ox 93 L 06/29/21 07:00 Intake & Output 06/28/21 06/29/21 06/29/21 18:59 06:59 18:59 Intake Total 52.333 749.091 Output Total 1100 1050 0 Balance -1047.667 -300.909 0 Weight 81.193 kg Intake: Intake, IV Titration 52.333 249.091 Amount Heparin Sod,Pork in 0.45% 52.333 249.091 NaCl 25,000 unit In 0.45 % NaCl 1 250ml.bag @ 11. 917 UNITS/KG/HR 10 mls/hr IV .Q24H [facility] Rx#: [id number] Oral 500 Output: Urine 1100 1050 0 Other: Voiding Method Urinal Urinal # Voids 0 - Labs CBC & Chem 7: 06/29/21 05:10 06/29/21 05:10 Labs: Abnormal Lab Results - Last 24 Hours (Table) 06/28/21 06/28/21 06/28/21 Range/Units 11: 15:19 18:18 APTT 42.6 H 62.8 H (22.0-30.0) sec Glucose (74-99) mg/dL Crossmatch See Detail 06/29/21 06/29/21 Range/Units 05:10 05:10 APTT 69.7 H (22.0-30.0) sec Glucose 109 H (74-99) mg/dL Crossmatch
--- NOTE | 2021-06-29 09:50 | P.PN ---
Subjective History of Present Illness Patient is a pleasant 65-year-old male came in after cardiac respiratory arrest and patient is found to be in V. tach this happened when when patient was having a stress test.. His EKG did show sinus rhythm with the Q waves in V1 and V2 and probably ST depressions in leads 2 and V5. Patient's troponin is negative. Patient denied any symptoms at this time patient today. Patient denied any nausea vomiting chest pain. 06/28/2021 Patient underwent cardiac catheterization which showed a triple vessel disease patient will be evaluated by cardiac thoracic surgery echocardiac exam showed mildly decreased EF of around 40-45%. 06/29/2021 Patient overall is clinically doing well no overnight events patient is awaiting the coronary artery bypass grafting tomorrow. Constitutional: Denied any fatigue denied any fever. Cardio vascular: denied any chest pain, palpitations Gastrointestinal denied any nausea vomiting Pulmonary: Denied any shortness of breath cough Neurologic denied any new focal deficits All inpatient medications were reviewed and appropriate changes in these medications as dictated in the interval history and assessment and plan. PHYSICAL EXAMINATION: GENERAL: The patient is alert and oriented x3, not in any acute distress. Well developed, well nourished. HEENT: Pupils are round and equally reacting to light. EOMI. No scleral icterus. No conjunctival pallor. Normocephalic, atraumatic. No pharyngeal erythema. No thyromegaly. CARDIOVASCULAR: S1 and S2 present. No murmurs, rubs, or gallops. PULMONARY: Chest is clear to auscultation, no wheezing or crackles. ABDOMEN: Soft, nontender, nondistended, normoactive bowel sounds. No palpable organomegaly. MUSCULOSKELETAL: No joint swelling or deformity. EXTREMITIES: No cyanosis, clubbing, or pedal edema. NEUROLOGICAL: Gross neurological examination did not reveal any focal deficits. SKIN: No rashes. Assessment and plan -Cardiac respiratory arrest secondary to coronary artery disease and the patie nt and into V. tach during stress test Clinical systolic dysfunction secondary to acute myocardialinfarction patient is not in acute heart failure exacerbation. -Coronary artery disease 2 vessel disease patient is being evaluated by car to thoracic surgery for CABG and the patient can use to be on IV heparin. -Hyperlipidemia -Mildly elevated d-dimer. Pretest probability for pulmonary malaise and is low and the d-dimer elevation is secondary to cardiorespiratory arrest DVT prophylaxis: Patient is presently on IV heparin for coronary artery disease Objective - Vital Signs Vital signs: Vital Signs Temp 97.9 F 06/29/21 04:00 Pulse 77 06/29/21 07:00 Resp 15 06/29/21 07:00 BP 141/83 06/29/21 07:00 Pulse Ox 93 L 06/29/21 07:00 Intake & Output 06/28/21 06/29/21 06/29/21 18:59 06:59 18:59 Intake Total 52.333 749.091 Output Total 1100 1050 0 Balance -1047.667 -300.909 0 Weight 81.193 kg Intake: Intake, IV Titration 52.333 249.091 Amount Heparin Sod,Pork in 0.45% 52.333 249.091 NaCl 25,000 unit In 0.45 % NaCl 1 250ml.bag @ 11. 917 UNITS/KG/HR 10 mls/hr IV .Q24H [facility] Rx#: [id number] Oral 500 Output: Urine 1100 1050 0 Other: Voiding Method Urinal Urinal # Voids 0 - Labs CBC & Chem 7: 06/29/21 05:10 06/29/21 05:10 Labs: Abnormal Lab Results - Last 24 Hours (Table) 06/28/21 06/28/21 06/28/21 Range/Units 11: 15:19 18:18 APTT 42.6 H 62.8 H (22.0-30.0) sec Glucose (74-99) mg/dL Crossmatch See Detail 06/29/21 06/29/21 Range/Units 05:10 05:10 APTT 69.7 H (22.0-30.0) sec Glucose 109 H (74-99) mg/dL Crossmatch
[2021-06-29] MEDS: METOPROLOL SUCCINATE (ER) 25 MG TAB.ER.24H PO SCH (10:18)
[2021-06-29] MEDS: DOCUSATE 100 MG CAP PO SCH ×2 (10:19→22:50)
[2021-06-29] MEDS ORDERED: MD COMMUNICATION TO PHARMACY 1 EACH MISC PO ONE (11:00)
--- NOTE | 2021-06-29 11:04 | P.PN ---
Subjective Progress Note Date: 06/29/21 Principal diagnosis: Acute cardiac arrest This is a 65-year-old male patient of Dr. Pimentel, with past medical history of hyperlipidemia, osteoarthritis, patient is a nonsmoker, who was getting a cardiac workup which also included a stress test at the [facility] office today. Patient was wearing a heart monitor for the last month because of episodes of exertional dyspnea, however at the time of his stress test the monitor was off. During his stress test patient went into ventricular fibrillation cardiac arrest. CPR was started for 1-1/2 minutes when the EEG was applied and a shock was delivered and patient was back in sinus rhythm. He regained consciousness immediately he was given 150 mg of IV push amiodarone, transported by EMS to the emergency department for further evaluation and management. Patient is awake and alert in the emergency department, complaining of some soreness to his chest, and nausea. EKG was obtained showing sinus mechanism with first-degree AV block and a rate of 73 BPM. He has evidence of Q wave in the leads 3 and aVF, and leads V2, V3. Cardiology is on the case, and evaluating the patient in the emergency department. Chest x-ray was obtained showing heart upper limits of normal in size, no acute cardiopulmonary process. Patient is breathing comfortably, he is on 2 L of oxygen pulse ox is 100%, afebrile, blood pressure is 147/89. She labs have been reviewed, CBC was within normal limits with white blood cell count of 10.1, hemoglobin of 15.4, with a count is 261, d-dimer was 1.08, coagulation profile was within normal limits, electrolytes and renal profile were unremarkable, first troponin was less than 0.012, TSH was 3.040. Patient is on point tenderness a ramy at 20 ML per hour, he is currently on amiodarone infusion at 1 mg/m, and heparin infusion per weight-based protocol, he was given Lipitor 80 mg. His home dose 81 mg aspirin, Toprol-XL has been restarted. Echocardiogram is pending, COVID-19 PCR is pending. Admission to the intensive care unit was requested, patient is currently awaiting a bed in the ICU. On 06/28/2021 patient seen in follow-up in intensive care unit. He is currently having a 2-D echo completed. She is resting comfortably in bed, denies any chest pain or shortness of breath, her pulse ox is 93-94%, afebrile, hemodynamically patient is stable. Patient is currently on amiodarone infusion at 0.5 mg/h, and heparin infusion per weight-based protocol, he was taken to the [facility] last night for cardiac catheterization which revealed multivessel coronary artery disease including 80% proximal LAD stenosis, 100% proximal to mid LAD with left to left collaterals, and 95% moderate diagonal 1, 95% moderate to large caliber OM1 and 95%, distal circumflex. His LVEDP was 11. CT surgery has been consulted for coronary artery revascularization surgery. Patient was seen by CT surgery, and is currently undergoing preop evaluation. No acute events overnight. No episodes of arrhythmia's. Today's labs have been reviewed, white blood cell count is 9, hemoglobin is 14.7, electrolytes and renal profile were within normal limits. On 06/29/2021 patient seen in follow-up in intensive care unit, he is awake and alert, in no acute distress, his resting comfortably in bed, he denies any specific complaints, no compressive chest pain, no difficulty breathing, repair pulse ox is 93%, vital signs have been stable no fever or chills. Today's labs have been reviewed, CBC is within normal limits, white blood, 0.7, hemoglobin is 15.1, patient remains on heparin infusion, his PTT is a 69.7, electrolytes and renal profile were unremarkable, patient had a bedside PFT which showed FEV1 of 2.56 L or 73% of predicted and FVC of 2.96 L or 63% of predicted with an FEV1 to FVC ratio of 115%, MVV was 96, this was consistent with mild restriction. And based on his PFT patient is considered to be no increased operative risk. Surgery is scheduled for tomorrow. No other events overnight. Please in sinus mechanism, no arrhythmias overnight, he is on Toprol-XL at 25 mg daily, aspirin, Lipitor 40 mg daily. Objective - Vital Signs Vital signs: Vital Signs Temp 97.9 F 06/29/21 04:00 Pulse 77 06/29/21 07:00 Resp 15 06/29/21 07:00 BP 141/83 06/29/21 07:00 Pulse Ox 93 L 06/29/21 07:00 Intake & Output 06/28/21 06/29/21 06/29/21 18:59 06:59 18:59 Intake Total 52.333 749.091 Output Total 1100 1050 350 Balance -1047.667 -300.909 -350 Weight 81.193 kg Intake: Intake, IV Titration 52.333 249.091 Amount Heparin Sod,Pork in 0.45% 52.333 249.091 NaCl 25,000 unit In 0.45 % NaCl 1 250ml.bag @ 11. 917 UNITS/KG/HR 10 mls/hr IV .Q24H [facility] Rx#: [id number] Oral 500 Output: Urine 1100 1050 350 Other: Voiding Method Urinal Urinal # Voids 0 - Exam GENERAL EXAM: Alert, very pleasant, 65-year-old white male, room air pulse ox is 93-94% comfortable in no apparent distress. HEAD: Normocephalic/atraumatic. EYES: Normal reaction of pupils, equal size. Conjunctiva pink, sclera white. NOSE: Clear with pink turbinates. THROAT: No erythema or exudates. NECK: No masses, no JVD, no thyroid enlargement, no adenopathy. CHEST: No chest wall deformity. Symmetrical expansion. LUNGS: Equal air entry with no crackles, wheeze, rhonchi or dullness. CVS: Regular rate and rhythm, normal S1 and S2, no gallops, no murmurs, no rubs ABDOMEN: Soft, nontender. No hepatosplenomegaly, normal bowel sounds, no guarding or rigidity. EXTREMITIES: No clubbing, no edema, no cyanosis, 2+ pulses and upper and lower extremities. MUSCULOSKELETAL: Muscle strength and tone normal. SPINE: No scoliosis or deformity SKIN: No rashes CENTRAL NERVOUS SYSTEM: Alert and oriented -3. No focal deficits, tone is normal in all 4 extremities. PSYCHIATRIC: Alert and oriented -3. Appropriate affect. Intact judgment and insight. - Labs CBC & Chem 7: 06/29/21 05:10 06/29/21 05:10 Labs: Abnormal Lab Results - Last 24 Hours (Table) 06/28/21 06/28/21 06/28/21 Range/Units 11:22 15:19 18:18 APTT 42.6 H 62.8 H (22.0-30.0) sec Glucose (74-99) mg/dL Crossmatch See Detail 06/29/21 06/29/21 Range/Units 05:10 05:10 APTT 69.7 H (22.0-30.0) sec Glucose 109 H (74-99) mg/dL Crossmatch Assessment and Plan Plan: Assessment: #1. Acute cardiac arrest related to ventricular fibrillation, during a outpatient stress test, requiring CPR, and defibrillation and return of spontaneous circulation. on amiodarone infusion #2. Multivessel coronary artery disease, awaiting coronary artery bypass grafting surgery #3. Hyperlipidemia #4. Osteoarthritis #5. Nonsmoker, pre-op FEV of 2.56 L or 73% of predicted and FVC of 2.96 L or 63% of predicted with an FEV1 to FVC ratio of 115% this was consistent with mild restriction, MVV was 96 #6. Elevated d-dimer, nonspecific #7. Exertional dyspnea for the past 3 months, under investigation by cardiology Plan: No acute events overnight No chest pain, no recurrence of arrhythmia Undergoing preop evaluation for bypass surgery tomorrow on 06/30/2021 Vital signs are stable Bedside FEV1 results were reviewed with Dr. Nicole Based on those patient is at no increased operative risk from pulmonary perspective We'll continue to closely follow with CT surgery I performed a history & physical examination of the patient and discussed their management with my nurse practitioner, Yudi Streeter. I reviewed the nurse practitioner's note and agree with the documented findings and plan of care. Lung sounds are positive for clear breath sounds throughout the lung tran. The findings and the impression was discussed with the patient. I attest to the documentation by the nurse practitioner. Time with Patient: Less than 30
[2021-06-29] MEDS: SODIUM CHLORIDE 0.9% 1,000 ML IV SCH (19:09)
[2021-06-29 22:39] LABS: Chol/HDL Ratio 2.55 Ratio; HDL Cholesterol 58.1 mg/dL (40.00-60.00); LDL Cholesterol,Calculated 66.9 mg/dL (0.0-131.0)
[2021-06-30 04:52] LABS: Basophils # (A) 0.1 k/uL (0-0.2); Basophils % (A) 1 %; Eosinophils # (A) 0.1 k/uL (0-0.7); Eosinophils % (A) 1 %; HCT 46.3 % (39.0-53.0); HGB 15.5 gm/dL (13.0-17.5); Lymphocytes # (A) 2.2 k/uL (1.0-4.8); Lymphocytes % (A) 25 %; MCH 30.5 pg (25.0-35.0); MCHC 33.4 g/dL (31.0-37.0); MCV 91.2 fL (80.0-100.0); Mean Platelet Volume 8.6; Monocytes # (A) 0.5 k/uL (0-1.0); Monocytes % (A) 5 %; Neutrophils # (A) 5.9 k/uL (1.3-7.7); Neutrophils % (A) 66 %; Platelet Count 235 k/uL (150-450); RBC 5.08 m/uL (4.30-5.90); RDW 12.7 % (11.5-15.5); WBC 8.8 k/uL (3.8-10.6)
[2021-06-30] MEDS ORDERED: PAPAVERINE 360 MG in SODIUM CHLORIDE 0.9% 90 ML IV ONE ×2 (05:00→09:39)
[2021-06-30] MEDS ORDERED: CLEVIDIPINE BUTYRATE 25 MG in EMPTY BAG 1 BAG IV SCH (05:00)
[2021-06-30] MEDS ORDERED: PROTAMINE SULFATE 250 MG in EMPTY BAG 1 BAG IV ONE (05:00)
[2021-06-30] MEDS ORDERED: PHENYLEPHRINE 10 MG/ML VIAL IV ONE (05:00)
[2021-06-30] MEDS ORDERED: INSULIN REGULAR 100 UNIT in SODIUM CHLORIDE 0.9% 100 ML IV SCH (05:00)
[2021-06-30] MEDS ORDERED: HEPARIN SODIUM 1,000 UN/ML (10ML VL) IV ONE (05:00)
[2021-06-30] MEDS ORDERED: ceFAZolin 1,000 MG in SODIUM CHLORIDE 0.9% IRRIGATIO 1,000 ML IRRIGATION ONE (05:00)
[2021-06-30] MEDS ORDERED: ALBUMIN HUMAN 5% 500 ML in EMPTY BAG 1 BAG IVPB ONE ×6 (05:00)
[2021-06-30] MEDS ORDERED: MANNITOL 25% 12.5 GM/50 ML VIAL IV ONE ×2 (05:00)
[2021-06-30] MEDS ORDERED: TRANEXAMIC ACID 2,000 MG in SODIUM CHLORIDE 0.9% 80 ML IV ONE (05:00)
[2021-06-30] MEDS ORDERED: PROTAMINE SULFATE 10 MG/ML 25 ML VIAL IV ONE (05:00)
[2021-06-30] MEDS ORDERED: LACTATED RINGERS 1,000 ML IV SCH (05:00)
[2021-06-30] MEDS ORDERED: CHLORHEXIDINE GLUCONATE 15 ML CUP MUCOUS MEM ONE (05:00)
[2021-06-30] MEDS ORDERED: NOREPINEPHRINE 4 MG in SODIUM CHLORIDE 0.9% 250 ML IV SCH (05:00)
[2021-06-30] MEDS ORDERED: ALBUMIN HUMAN 25% 50 ML in EMPTY BAG 1 BAG IVPB ONE (05:00)
[2021-06-30] MEDS ORDERED: HEPARIN SODIUM,PORCINE 5,000 UNIT in SODIUM CHLORIDE 0.9% 500 ML 500 ML IV ONE (05:00)
[2021-06-30] MEDS ORDERED: METOPROLOL TARTRATE 12.5 MG TAB PO ONE (05:00)
[2021-06-30] MEDS ORDERED: ASPIRIN 325 MG TAB PO ONE (05:00)
[2021-06-30] MEDS ORDERED: DILTIAZEM 125 MG in SODIUM CHLORIDE 0.9% 100 ML IV SCH ×2 (05:00→13:50)
[2021-06-30] MEDS ORDERED: ATORVASTATIN 10 MG TAB PO ONE (05:00)
[2021-06-30] MEDS ORDERED: NITROGLYCERIN-D5W PMX 50 MG in DEXTROSE/WATER 1 250ML.BAG IV SCH ×2 (05:00→13:50)
[2021-06-30] MEDS ORDERED: CARDIOPLEGIC SOLN (K+ 16 MEQ/L 1,000 ML with SOD BICARB SYR 8.4% (1 MEQ/ML) 20 ML, LIDO... PERFUSION NR ×3 (05:00)
[2021-06-30] MEDS ORDERED: SODIUM BICARB 8.4% 50 ML SYR (1 MEQ/ML) IV ONE (05:00)
[2021-06-30] MEDS ORDERED: PHENYLEPHRINE 40 MG in SODIUM CHLORIDE 0.9% 250 ML IV ONE (05:00)
[2021-06-30] MEDS ORDERED: CALCIUM CHLORIDE 100 MG/ML 10 ML SYRINGE IVP ONE (05:00)
[2021-06-30] MEDS ORDERED: NITROGLYCERIN-D5W PMX 25 MG/250 ML BTL IV ONE (05:00)
[2021-06-30] MEDS ORDERED: MAGNESIUM SULFATE 16.24 MEQ in EMPTY SYRINGE 1 SYR IV ONE (05:00)
[2021-06-30 05:04] LABS: Partial Thromboplastin Time 47.2 sec (22.0-30.0); Prothrombin Time 10.7 sec (9.0-12.0)
[2021-06-30 05:08] LABS: African American GFR (CKD) >90 (>60 ml/min/1.73 sqM); Anion Gap 7 mmol/L; Blood Urea Nitrogen 17 mg/dL (9-20); Calcium 9.5 mg/dL (8.4-10.2); Carbon Dioxide 27 mmol/L (22-30); Chloride 104 mmol/L (98-107); Glucose 108 mg/dL (74-99); Non-African American GFR(CKD) >90 (>60 ml/min/1.73 sqM); Potassium 4.6 mmol/L (3.5-5.1); Sodium 138 mmol/L (137-145)
[2021-06-30] MEDS ORDERED: PROPOFOL 10 MG/ML 20 ML VIAL IV ONE (07:32)
[2021-06-30] MEDS ORDERED: VECURONIUM 10 MG VIAL IV ONE (07:32)
[2021-06-30] MEDS ORDERED: PHENYLEPHRINE-0.9% NACL SYG 1,000 MCG/10 ML SYRINGE ONE (07:32)
[2021-06-30] MEDS ORDERED: ALBUTEROL INHALER 60 PUFF/8 GM INHALER (MHU) INHALATION ONE (07:32)
[2021-06-30] MEDS ORDERED: ceFAZolin 1,000 MG VIAL ONE (07:32)
[2021-06-30] MEDS ORDERED: PROTAMINE SULFATE 10 MG/ML 5 ML VIAL IV ONE (07:32)
[2021-06-30] MEDS ORDERED: HEPARIN SODIUM,PORCINE 10,000 UNIT/ML 1 ML VIAL ONE (07:32)
[2021-06-30] MEDS ORDERED: fentaNYL (PF) 50 MCG/ML 50 ML VIAL ONE (07:32)
[2021-06-30] MEDS ORDERED: NITROGLYCERIN-D5W PMX 50 MG/250 ML BOTTLE IV ONE (07:32)
[2021-06-30] MEDS ORDERED: SODIUM CHLORIDE 0.9% 100 ML BAG ONE (07:32)
[2021-06-30] MEDS ORDERED: ALBUMIN HUMAN 5% (25gm) 500 ML VIAL IVPB ONE (07:32)
[2021-06-30] MEDS ORDERED: SODIUM CHLORIDE 0.9% IRRIG 1,000 ML BTL IRRIGATION ONE (07:32)
[2021-06-30] MEDS ORDERED: MIDAZOLAM 2 MG/2 ML VIAL ONE (07:32)
[2021-06-30 08:36] LABS: ABG Glucose Whole Blood 94 mg/dL (75-99); ABG HCO3 28 mmol/L (21-25); ABG Hematocrit 45 % (34.0-46.0); ABG Ionized Calcium 4.8 mg/dL (4.5-5.3); ABG Lactic Acid Whole Blood 0.8 mmol/L (0.5-1.6); ABG Oxygen Saturation 99.1 % (94-97); ABG PCO2 41 mmHg (35-45); ABG PH 7.44 (7.35-7.45); ABG PO2 140 mmHg (83-108); ABG Potassium Whole Blood 4.6 mmol/L (3.4-4.5); ABG Sodium Whole Blood 142 mmol/L (135-146); ABG TCO2 29 mmol/L (19-24)
[2021-06-30] MEDS ORDERED: MUPIROCIN 2% OINT 22 GM TUBE NASAL SCH (09:00)
[2021-06-30] MEDS ORDERED: SODIUM CHLORIDE 0.9% 500 ML 500 ML with HEPARIN SODIUM,PORCINE 5,000 UNIT IV ONE ×2 (09:39)
[2021-06-30] MEDS ORDERED: ceFAZolin 1,000 MG in SODIUM CHLORIDE 0.9% 1,000 ML IRRIGATION ONE (09:40)
[2021-06-30 10:19] LABS: ABG Base Excess 0.6 mmol/L; ABG Glucose Whole Blood 121 mg/dL (75-99); ABG HCO3 26 mmol/L (21-25); ABG Hematocrit 42 % (34.0-46.0); ABG Ionized Calcium 4.7 mg/dL (4.5-5.3); ABG Lactic Acid Whole Blood 1.6 mmol/L (0.5-1.6); ABG PCO2 45 mmHg (35-45); ABG PH 7.37 (7.35-7.45); ABG PO2 157 mmHg (83-108); ABG Potassium Whole Blood 4.4 mmol/L (3.4-4.5); ABG Sodium Whole Blood 142 mmol/L (135-146); ABG TCO2 28 mmol/L (19-24)
[2021-06-30 11:06] LABS: ABG Base Excess -0.3 mmol/L; ABG Glucose Whole Blood 116 mg/dL (75-99); ABG HCO3 24 mmol/L (21-25); ABG Hematocrit 39 % (34.0-46.0); ABG Ionized Calcium 4.5 mg/dL (4.5-5.3); ABG Lactic Acid Whole Blood 1.5 mmol/L (0.5-1.6); ABG Oxygen Saturation 97.8 % (94-97); ABG PCO2 37 mmHg (35-45); ABG PH 7.42 (7.35-7.45); ABG PO2 95 mmHg (83-108); ABG Potassium Whole Blood 3.8 mmol/L (3.4-4.5); ABG Sodium Whole Blood 143 mmol/L (135-146); ABG TCO2 25 mmol/L (19-24)
[2021-06-30 11:40] LABS: ABG Base Excess -0.7 mmol/L; ABG Glucose Whole Blood 119 mg/dL (75-99); ABG HCO3 24 mmol/L (21-25); ABG Hematocrit 38 % (34.0-46.0); ABG Ionized Calcium 4.5 mg/dL (4.5-5.3); ABG Oxygen Saturation 98.5 % (94-97); ABG PCO2 39 mmHg (35-45); ABG PO2 115 mmHg (83-108); ABG Potassium Whole Blood 4.5 mmol/L (3.4-4.5); ABG Sodium Whole Blood 142 mmol/L (135-146); ABG TCO2 25 mmol/L (19-24)
[2021-06-30 12:10] LABS: ABG Base Excess -0.6 mmol/L; ABG Glucose Whole Blood 123 mg/dL (75-99); ABG HCO3 24 mmol/L (21-25); ABG Hematocrit 38 % (34.0-46.0); ABG Ionized Calcium 4.6 mg/dL (4.5-5.3); ABG Oxygen Saturation 98.7 % (94-97); ABG PCO2 36 mmHg (35-45); ABG PH 7.42 (7.35-7.45); ABG PO2 119 mmHg (83-108); ABG Potassium Whole Blood 4.3 mmol/L (3.4-4.5); ABG Sodium Whole Blood 142 mmol/L (135-146); ABG TCO2 25 mmol/L (19-24)
[2021-06-30 13:03] LABS: ABG Base Excess -0.5 mmol/L; ABG Glucose Whole Blood 125 mg/dL (75-99); ABG HCO3 24 mmol/L (21-25); ABG Hematocrit 37 % (34.0-46.0); ABG Ionized Calcium 4.5 mg/dL (4.5-5.3); ABG Oxygen Saturation 97.2 % (94-97); ABG PCO2 39 mmHg (35-45); ABG PO2 91 mmHg (83-108); ABG Potassium Whole Blood 4.2 mmol/L (3.4-4.5); ABG Sodium Whole Blood 141 mmol/L (135-146); ABG TCO2 25 mmol/L (19-24)
[2021-06-30 13:18] LABS: ABG Lactic Acid Whole Blood 2.2 mmol/L (0.5-1.6)
[2021-06-30] MEDS ORDERED: Magnesium Replacement Protocol 1 EACH MISC MISCELLANE PRN (13:50)
[2021-06-30] MEDS ORDERED: CALCIUM GLUCONATE 2 GM in SODIUM CHLORIDE 0.9% 100 ML IVPB PRN (13:50)
[2021-06-30] MEDS ORDERED: METOCLOPRAMIDE 5 MG/ML 2 ML VIAL IVP PRN (13:50)
[2021-06-30] MEDS ORDERED: ALBUMIN HUMAN 5% 250 ML in EMPTY BAG 1 BAG IVPB PRN (13:50)
[2021-06-30] MEDS ORDERED: DEXTROSE 5% IN WATER 100 ML with AMIODARONE 150 MG IV PRN (13:50)
[2021-06-30] MEDS ORDERED: Potassium Replacement Protocol 1 EACH MISC MISCELLANE PRN (13:50)
[2021-06-30] MEDS ORDERED: Phosphorus Replacement Protoco 1 EACH MISC MISCELLANE PRN (13:50)
[2021-06-30] MEDS ORDERED: IPRATROPIUM-ALBUTEROL 3 ML NEB INHALATION PRN (13:50)
[2021-06-30] MEDS ORDERED: ONDANSETRON 4 MG/2 ML VIAL IVP PRN (13:50)
[2021-06-30] MEDS ORDERED: AMIODARONE 360 MG in DEXTROSE 5% IN WATER 200 ML IV PRN ×2 (13:50)
[2021-06-30] MEDS ORDERED: AMIODARONE 450 MG in DEXTROSE 5% IN WATER 250 ML IV PRN ×2 (13:50)
--- NOTE | 2021-06-30 14:08 | P.OP ---
Date of Procedure: 06/30/21 Preoperative Diagnosis: Coronary artery disease Postoperative Diagnosis: Same Procedure(s) Performed: Off pump coronary artery bypass grafting 5 with sequential left internal mammary artery graft to mid LAD to mid LAD, left radial artery graft to obtuse m arginal, saphenous vein graft to first diagonal, saphenous vein graft with patch angioplasty to posterior descending, epi-aortic ultrasonography, endovascular vein harvest of the left greater saphenous vein, endovascular harvest the left radial artery, occlusion of the left atrial appendage with 35 mm AtriCure clip, ROWENA by anesthesia Implants: 35mm AtriCure clip Anesthesia: BERNADINE Art Professor #1: Rosalio Kaufman Art Professor #2: Riccardo Smith Pathology: none sent Condition: stable Disposition: ICU Indications for Procedure: 65-year-old male presented with chest pain and ruled in for subendocardial NE. He underwent cardiac catheterization demonstrating severe three-vessel coronary artery disease. Left ventricular function was reasonably preserved with anterior wall hypokinesis and septal akinesis. Patient was recommended to undergo coronary bypass surgery and underwent the procedure during the same admission. Operative Findings: Diffuse coronary artery disease. Epi-aortic ultrasound of the ascending aorta was normal. Good conduits. Reasonable targets. Left ventricular ejection fraction improved on echocardiography with normal motion of the anterior wall an d improved motion of the septal wall following revascularization. Description of Procedure: Patient was brought to the operating room, placed supine on the operating table, anesthetized and intubated. T probe was placed. The anterior torso and bilateral lower extremities and left upper extremity were sterilely prepped and draped. Left greater saphenous vein was harvested from mid calf to groin using endovascular vein harvest technique. Left radial artery was harvested with endovascular technique. Simultaneous sternotomy was performed and the left hemisternum retracted upwards and the left internal mammary artery harvested on a vascularized pedicle, left intact on its origin from the subclavian and divided distally. The left pleural space was drained with a 32-[place] chest tube. Patient was systemically heparinized. Epi-AORTIC ultrasonography was performed with findings of a relatively normal ascending aorta. Pericardium was opened in the midline and the heart was exposed with pericardial sutures. Patient was systemically heparinized. ACTs were maintained greater than 250 during grafting. Began by exploring the target vessels. Major marginal branch was identified and was a good target. PDA was a good target however and had a large plaque in its midportion. Was decided to graft across this with a patch angioplasty. The LAD was a diffusely diseased vessel. The high diagonal was graftable. There was a small second diagonal branch and just proximal to this the LAD was graftable. The takeoff of the second diagonal branch was heavy calc ification of the vessel and then it became soft again distally. Was decided to sequentially graft the LAD from just before the first diagonal and then again after the first diagonal. Both of these were in the midportion of the vessel. We began with a [id number] anastomosis to the more proximal portion of the mid LAD. The vessel was opened here. It accepted a 1.5 mm probe distally to beyond the takeoff of the second diagonal branch but only accepted a 1 mm probe proximally. 1.0 mm flow through was placed and [id number] anastomosis of the CHAN to the LAD was performed with running 8-0 Prolene suture. Completion the anastomosis the flow through was removed effectively probing the proximal distal portion anastomosis. Suture was tied with good result and hemostasis. Bulldog clamp was removed from proximally and distally on the CHAN. On removing the bulldog clamp was noted significant augmentation in the flow at the end of the CHAN which had begun once the flow through had been removed. The BOB pedicle was tacked surrounding epicardium with 6-0 silk suture. We performed the distal anastomosis. The LAD was opened about 3-4 cm further down in the mid anterior wall. Here was a soft vessel which easily accepted a 1.5 mm flow through. End to side anastomosis of the CHAN to the LAD was performed with running 8-0 Prolene suture. On completion anastomosis the flow through was removed effectively probing the proximal distal portion anastomosis. Suture was tied with good result and hemostasis. BOB pedicle was tacked surrounding epicardium with 6-0 silk sutures. We were now able to lift the heart and expose the left atrial appendage. 35mm AtriCure clip was placed at the base the left atrial appendage. First diagonal coronary was now stabilized. Was opened and a 1.5 mm flow through was placed. It was a 1.75 mm vessel. Saphenous vein was anastomosed in end-to-side fashion with running 7-0 Prolene suture. On completion of the anastomosis the flow through was removed effectively probing the proximal and distal portion of the anastomosis. Suture was tied with good result and hemostasis. Good backbleeding was noted into the vein graft. The graft was cut to appropriate length to reach the ascending aorta. This was a valveless segment of the vein and backbleeding was controlled with a bulldog clamp. The inferior wall was exposed. The PDA was a 1.5-2 mm vessel of reasonable quality but it had a large plaque in its midportion. We opened across this plaque in place a 1.5 mm flow through. Saphenous vein was anastomosed in end-to-side fashion with running 7-0 Prolene suture. On completion of the anastomosis the flow through was removed effectively probing the proximal distal portion anastomosis. Suture was tied with good result and hemostasis. Good backbleeding was noted in the vein graft to the first valve. The heart was lowered into anatomic position and the vein cut to appropriately length to reach the ascending aorta. The lateral wall of the heart was now exposed. Major marginal branch was opened fairly proximally. It was a 2 mm vessel. Blood flow was controlled with a 1.5 mm flow through. Left radial artery was anastomosed in end-to-side fashion with running 7-0 Prolene suture. On completion of the anastomosis the flow through was removed effectively probing the proximal distal portion of the anastomosis. Suture was tied with good result and hemostasis. Backbleeding was noted in the radial artery. Heart was lowered in anatomic position and the radial cut to appropriate length to reach the ascending aorta. Blood pressure was controlled by anesthesia and a partial occlusion clamp was placed on the ascending aorta. 34 mm punch holes were created in the ascending aorta and 3 proximal anastomosis constructed with running 6-0 Prolene suture. On completion of the proximal anastomoses, they were de-aired by backbleeding and needle holes and the partial occlusion clamp was removed. Heparin was reversed with protamine. Good hemostasis was obtained throughout. The chest was irrigated with antibiotic solution. The mediastinum was drained with a 36-[place] chest tube. Sternum was closed with 8 sternal wi res. Fascia was closed with 0 Ethibond. Subcutaneous and subcuticular layers and leg arm and chest were closed with layers of Vicryl suture. Dry sterile dressings were applied and the patient was transferred to the ICU in stable condition.
[2021-06-30 14:20] LABS: Glucose,Whole Blood 128 mg/dL (75-99)
[2021-06-30 14:32] LABS: Ionized Calcium 4.8 mg/dL (4.5-5.3)
[2021-06-30 14:33] LABS: ABG HCO3 24 mmol/L (21-25); ABG PCO2 39 mmHg (35-45); ABG PO2 215 mmHg (83-108); ABG TCO2 25 mmol/L (19-24)
[2021-06-30 14:34] LABS: Basophils % (A) 0 %; Eosinophils % (A) 0 %; HCT 34.9 % (39.0-53.0); Lymphocytes # (A) 1.5 k/uL (1.0-4.8); Lymphocytes % (A) 12 %; MCHC 34.4 g/dL (31.0-37.0); MCV 89.9 fL (80.0-100.0); Mean Platelet Volume 8.3; Monocytes # (A) 0.4 k/uL (0-1.0); Monocytes % (A) 4 %; Neutrophils # (A) 10.5 k/uL (1.3-7.7); Neutrophils % (A) 83 %; Platelet Count 177 k/uL (150-450); RBC 3.88 m/uL (4.30-5.90); RDW 12.4 % (11.5-15.5); WBC 12.6 k/uL (3.8-10.6)
[2021-06-30 14:36] LABS: INR 1.2 (<1.2); Partial Thromboplastin Time 28.2 sec (22.0-30.0)
[2021-06-30 14:39] LABS: ALT 27 U/L (4-49); AST 31 U/L (17-59); African American GFR (CKD) >90 (>60 ml/min/1.73 sqM); Albumin 3.5 g/dL (3.5-5.0); Alkaline Phosphatase 57 U/L (38-126); Anion Gap 9 mmol/L; Blood Urea Nitrogen 16 mg/dL (9-20); Calcium 8.4 mg/dL (8.4-10.2); Carbon Dioxide 21 mmol/L (22-30); Chloride 108 mmol/L (98-107); Glucose 130 mg/dL (74-99); Magnesium 1.3 mg/dL (1.6-2.3); Non-African American GFR(CKD) >90 (>60 ml/min/1.73 sqM); Potassium 4.3 mmol/L (3.5-5.1); Sodium 138 mmol/L (137-145); Total Bilirubin 0.5 mg/dL (0.2-1.3); Total Protein 5.6 g/dL (6.3-8.2)
--- NOTE | 2021-06-30 14:45 | XR ---
EXAMINATION TYPE: XR chest 1V portable DATE OF EXAM: 06/30/2021 COMPARISON: 06/27/2021 HISTORY: Cardiac surgery TECHNIQUE: FINDINGS: Endotracheal tube is 1.7 cm from the rodriguez. There is right jugular catheter with tip in th e main pulmonary artery. There is some patchy linear density in the mid and lower lung tran. There is no heart failure. There is nasogastric tube in the stomach. There are chest leads. There are headley al wires. IMPRESSION: There is patchy atelectasis. No heart failure.
[2021-06-30] MEDS: LACTATED RINGERS 1,000 ML IV SCH (14:56)
[2021-06-30 15:00] LABS: Allen Test Performed? no
[2021-06-30] MEDS: MAGNESIUM SULFATE-D5W PMX 1 GM in DEXTROSE/WATER 1 100ML.BAG IVPB SCH ×2 (15:00→16:32)
[2021-06-30] MEDS: CLEVIDIPINE BUTYRATE 25 MG in EMPTY BAG 1 BAG IV SCH ×4 (15:01→23:26)
[2021-06-30] MEDS: ACETAMINOPHEN IV (For NPO) 1,000 MG in EMPTY BAG 1 BAG IVPB SCH ×2 (15:07→21:34)
[2021-06-30] MEDS: INSULIN REGULAR 100 UNIT in SODIUM CHLORIDE 0.9% 100 ML IV SCH (16:00)
[2021-06-30] MEDS ORDERED: IPRATROPIUM-ALBUTEROL 3 ML NEB INHALATION SCH (16:00)
[2021-06-30 16:04] LABS: Glucose,Whole Blood 197 mg/dL (75-99)
[2021-06-30] MEDS: HEPARIN SODIUM,PORCINE/PF 5,000 UNIT/0.5 ML SYRINGE SQ SCH ×2 (16:32→23:10)
[2021-06-30 17:03] LABS: Glucose,Whole Blood 191 mg/dL (75-99)
[2021-06-30 17:09] LABS: Basophils % (A) 0 %; Eosinophils % (A) 0 %; HCT 37.3 % (39.0-53.0); HGB 12.7 gm/dL (13.0-17.5); Lymphocytes # (A) 1.2 k/uL (1.0-4.8); Lymphocytes % (A) 7 %; MCH 30.7 pg (25.0-35.0); MCHC 33.9 g/dL (31.0-37.0); MCV 90.7 fL (80.0-100.0); Mean Platelet Volume 8.5; Monocytes # (A) 0.7 k/uL (0-1.0); Monocytes % (A) 4 %; Neutrophils # (A) 15.4 k/uL (1.3-7.7); Neutrophils % (A) 88 %; Platelet Count 227 k/uL (150-450); RBC 4.12 m/uL (4.30-5.90); RDW 12.6 % (11.5-15.5); WBC 17.5 k/uL (3.8-10.6)
[2021-06-30] MEDS: KETOROLAC 15 MG/ML 1 ML VIAL IVP SCH ×2 (17:55→23:10)
[2021-06-30 18:02] LABS: Glucose,Whole Blood 220 mg/dL (75-99)
[2021-06-30 18:58] LABS: Glucose,Whole Blood 191 mg/dL (75-99)
[2021-06-30 19:02] LABS: ABG Base Excess -2.4 mmol/L; ABG HCO3 23 mmol/L (21-25); ABG Oxygen Saturation 93.6 % (94-97); ABG PCO2 40 mmHg (35-45); ABG PH 7.36 (7.35-7.45); ABG PO2 67 mmHg (83-108); ABG TCO2 24 mmol/L (19-24); Allen Test Performed? Yes
[2021-06-30] MEDS: IPRATROPIUM-ALBUTEROL 3 ML NEB INHALATION SCH (19:25)
[2021-06-30 20:08] LABS: Glucose,Whole Blood 184 mg/dL (75-99)
[2021-06-30 20:26] LABS: Basophils % (A) 0 %; Eosinophils % (A) 0 %; HGB 13.1 gm/dL (13.0-17.5); Lymphocytes # (A) 0.7 k/uL (1.0-4.8); Lymphocytes % (A) 4 %; MCH 30.6 pg (25.0-35.0); MCHC 33.6 g/dL (31.0-37.0); MCV 90.9 fL (80.0-100.0); Mean Platelet Volume 8.5; Monocytes # (A) 0.8 k/uL (0-1.0); Monocytes % (A) 4 %; Neutrophils % (A) 91 %; Platelet Count 243 k/uL (150-450); RBC 4.29 m/uL (4.30-5.90); RDW 12.5 % (11.5-15.5); WBC 17.6 k/uL (3.8-10.6)
[2021-06-30 20:52] LABS: Glucose,Whole Blood 169 mg/dL (75-99)
[2021-06-30] MEDS: METOPROLOL TARTRATE 50 MG TAB PO SCH (21:10)
[2021-06-30 22:16] LABS: Glucose,Whole Blood 148 mg/dL (75-99)
[2021-06-30 23:31] LABS: Glucose,Whole Blood 138 mg/dL (75-99)
[2021-07-01 00:29] LABS: Glucose,Whole Blood 120 mg/dL (75-99)
[2021-07-01 01:13] LABS: Glucose,Whole Blood 109 mg/dL (75-99)
[2021-07-01] MEDS: CLEVIDIPINE BUTYRATE 25 MG in EMPTY BAG 1 BAG IV SCH (01:35)
[2021-07-01] MEDS: HYDROcodone/APAP 5-325MG 1 EACH TAB PO PRN ×6 (01:48→22:38)
[2021-07-01 02:00] LABS: Glucose,Whole Blood 131 mg/dL (75-99)
[2021-07-01 04:10] LABS: Glucose,Whole Blood 95 mg/dL (75-99)
[2021-07-01 04:22] LABS: Basophils % (A) 0 %; Eosinophils % (A) 0 %; HCT 36.1 % (39.0-53.0); HGB 12.1 gm/dL (13.0-17.5); Lymphocytes # (A) 1.3 k/uL (1.0-4.8); Lymphocytes % (A) 9 %; MCH 30.2 pg (25.0-35.0); MCHC 33.5 g/dL (31.0-37.0); MCV 90.3 fL (80.0-100.0); Mean Platelet Volume 8.6; Monocytes # (A) 0.7 k/uL (0-1.0); Monocytes % (A) 5 %; Neutrophils % (A) 85 %; Platelet Count 215 k/uL (150-450); RDW 12.8 % (11.5-15.5); WBC 14.1 k/uL (3.8-10.6)
[2021-07-01 04:25] LABS: Ionized Calcium 4.8 mg/dL (4.5-5.3)
[2021-07-01 04:31] LABS: Chloride 103 mmol/L (98-107)
[2021-07-01 04:34] LABS: ALT 27 U/L (4-49); AST 39 U/L (17-59); African American GFR (CKD) >90 (>60 ml/min/1.73 sqM); Albumin 3.6 g/dL (3.5-5.0); Alkaline Phosphatase 46 U/L (38-126); Anion Gap 9 mmol/L; Blood Urea Nitrogen 17 mg/dL (9-20); Calcium 8.6 mg/dL (8.4-10.2); Carbon Dioxide 22 mmol/L (22-30); Glucose 96 mg/dL (74-99); Magnesium 1.9 mg/dL (1.6-2.3); Non-African American GFR(CKD) >90 (>60 ml/min/1.73 sqM); Potassium 4.5 mmol/L (3.5-5.1); Sodium 134 mmol/L (137-145); Total Bilirubin 0.6 mg/dL (0.2-1.3); Total Protein 5.7 g/dL (6.3-8.2)
[2021-07-01] MEDS: KETOROLAC 15 MG/ML 1 ML VIAL IVP SCH ×3 (05:50→17:08)
[2021-07-01 06:31] LABS: Glucose,Whole Blood 109 mg/dL (75-99)
--- NOTE | 2021-07-01 06:32 | XR ---
EXAMINATION TYPE: XR chest 1V portable DATE OF EXAM: 07/01/2021 COMPARISON: 06/30/2021 HISTORY: Postop CABG surgery TECHNIQUE: Single frontal view of the chest is obtained. FINDINGS: There has been interval removal of the ET tube. There is no change in the mediastinal tube , left chest tube and [place] catheter. There is a mild decrease in the atelectasis in the lung bas es. There is no pneumothorax. There is no pulmonary vascular congestion. There are sternotomy wires otherwise the osseous structures are grossly intact IMPRESSION: 1. Removal of the ET tube. 2. No change in the [place] catheter, mediastinal tube and left chest tube. 3. Decreased atelectasis in the lung bases. 4. No pneumothorax.
[2021-07-01] MEDS: MAGNESIUM SULFATE-D5W PMX 1 GM in DEXTROSE/WATER 1 100ML.BAG IVPB SCH ×2 (06:36→08:37)
[2021-07-01] MEDS: IPRATROPIUM-ALBUTEROL 3 ML NEB INHALATION SCH ×4 (07:15→19:16)
[2021-07-01 07:20] LABS: Glucose,Whole Blood 121 mg/dL (75-99)
[2021-07-01 08:04] LABS: Glucose,Whole Blood 126 mg/dL (75-99)
[2021-07-01] MEDS: ASPIRIN 325 MG TAB PO SCH (08:37)
[2021-07-01] MEDS: METOPROLOL TARTRATE 50 MG TAB PO SCH ×2 (08:37→21:00)
[2021-07-01] MEDS: ATORVASTATIN 40 MG TAB PO SCH (08:37)
[2021-07-01] MEDS: HEPARIN SODIUM,PORCINE/PF 5,000 UNIT/0.5 ML SYRINGE SQ SCH ×2 (08:37→17:08)
[2021-07-01] MEDS: CLOPIDOGREL 75 MG TAB PO SCH (08:37)
[2021-07-01 08:58] LABS: Glucose,Whole Blood 125 mg/dL (75-99)
[2021-07-01] MEDS ORDERED: MAGNESIUM HYDROXIDE 2,400 MG/10 ML CUP PO PRN (09:00)
[2021-07-01] MEDS ORDERED: PANTOPRAZOLE 40 MG/10 ML VIAL IVP SCH (09:00)
[2021-07-01] MEDS ORDERED: METOPROLOL TARTRATE 12.5 MG TAB PO SCH (09:00)
[2021-07-01] MEDS ORDERED: bisacodyL 10 MG SUPP RECTAL PRN (09:00)
[2021-07-01] MEDS ORDERED: DILTIAZEM ORAL 30 MG TAB PO SCH (09:00)
[2021-07-01 10:13] LABS: Glucose,Whole Blood 120 mg/dL (75-99)
--- NOTE | 2021-07-01 10:40 | P.PN ---
Subjective Progress Note Date: 07/01/21 Principal diagnosis: Multivessel coronary artery disease, status post ventricular fibrillation arrest status post stress test with defibrillation 1 and CPR, with return of ROSC, m ildly impaired left ventricular systolic function with EF 40-45%. Past medical history significant for hyperlipidemia, lifetime nonsmoker and family history of heart disease including premature coronary artery disease with mother having myocardial infarction at less than 50 years old. POD #1 Off pump coronary artery bypass grafting 5 with sequential left internal mammary artery graft to mid LAD to mid LAD, left radial artery graft to obtuse marginal, saphenous vein graft to first diagonal, saphenous vein graft with patch angioplasty to posterior descending, epi-aortic ultrasonography, endov ascular vein harvest of the left greater saphenous vein, endovascular harvest the left radial artery, occlusion of the left atrial appendage with 35 mm AtriCure clip, ROWENA by anesthesia. Postoperative acute blood loss anemia, expected due to hemodilution. The patient was seen in and follow-up today 07/01/2021 at his bedside in the intensive care unit. Currently sitting up to the bedside chair, is awake, alert and oriented 3 and is in no acute distress. He denies any complaints of shortness of breath although was complaining of some surgical type pain to his chest tube insertion sites. He remains hemodynamically stable and is currently on no inotropic or pressor support. Right IJ Cordis and [place]-Kenneth catheter remains in place with current hemodynamic showing a cardiac output of 4.9, c ardiac index 2.5, PA pressures 31/10 and a CVP 7 mmHg. Cardizem drip remains infusing at 5 mg per hour for radial artery spasm prophylaxis. He was successfully extubated last evening at 7:40 PM and is currently on 8 L high flow oxygen with an oxygen saturation of 97%. He is achieving 1000 mL on his incentive spirometry with encouragement. Mediastinal and left pleural chest tube remained in place to low continuous wall suction -20 cm H2O. No air leak is present. Draining thin serosanguineous drainage with 330 mL output in the last 8 hours and 650 mL output since surgery. T-max temperature in the last 24 hours was 100.9F and his bedside telemetry showing normal sinus rhythm heart rate 89 BPM. Objective - Vital Signs Vital signs: Vital Signs Temp 100.6 F H 07/01/21 04:00 Pulse 81 07/01/21 07:18 Resp 22 07/01/21 07:00 BP 114/67 07/01/21 07:00 Pulse Ox 99 07/01/21 07:00 Intake & Output 06/30/21 07/01/21 07/01/21 19:59 06:59 18:59 Intake Total 59 Output Total 60 Balance -1 Weight Intake: IV 59 ACETAMINOPHEN IV (For NPO ) 1,000 mg In Empty Bag 1 bag @ 400 mls/hr IVPB Q6HR [facility] Rx#:[id number] CO/CI Diltiazem 125 mg In Sodium Chloride 0.9% 100 ml @ 5 MG/HR 5 mls/hr IV .Q24H [facility] Rx#:[id number] Lactated Ringers 1,000 ml 50 @ 20 mls/hr IV .Q24H [facility] Rx#:[id number] Magnesium Sulfate-D5w Pmx 1 gm In Dextrose/Water 1 100ml.bag @ 100 mls/hr IVPB Q1H [facility] Rx#: [id number] Nitroglycerin-D5w Pmx 50 mg In Dextrose/Water 1 250ml.bag @ 5 MCG/MIN 1.5 mls/hr IV .Q24H [facility] Rx#: [id number] Pressure bag 9 Intake, IV Titration 0 Amount Clevidipine Butyrate 25 mg In Empty Bag 1 bag @ 1 MG/HR 2 mls/hr IV .Q24H [facility] Rx#:[id number] Insulin Regular 100 unit 0 In Sodium Chloride 0.9% 100 ml @ Per Protocol IV .Q0M [facility] Rx#:[id number] propofoL 1,000 mg In Empty Bag 1 bag @ Titrate IV .Q0M [facility] Rx#: [id number] Output: Chest Tube Drainage 40 Chest Tube Left Pleural/ 40 Mediastinal Drainage 0 Left Wrist 0 Urine 20 Estimated Blood Loss Other: Voiding Method ABP, PAP, CO, CI - Last Documented Arterial Blood Pressure 110/49 Pulmonary Artery Pressure 30/6 Cardiac Output 4.9 Cardiac Index 2.5 - Exam CONSTITUTIONAL: Sitting up to the bedside chair in the intensive care unit, appears comfortable, cooperative, no apparent acute distress. HEENT: Neck is supple, no JVD, no lymphadenopathy. Right IJ Cordis and [place]- Kenneth catheter in place and functioning. RESPIRATORY: Lungs sounds essentially clear throughout, diminished to his bilateral bases. Respirations are symmetrical and nonlabored. Currently on 8 L high flow nasal cannula with oxygen saturations 97%. Able to achieve 1000 mL on his incentive spirometry. Strong cough. CARDIOVASCULAR: Regular rhythm and rate. S1 and S2 present, negative for S3, gallop or murmur. Sternum is stable. Palpable peripheral pulses bilaterally, no edema to his bilateral lower extremities. No calf pain or tenderness noted. Heart hugger in place with patient demonstrating appropriate use. Knee-high DYLAN hose and sequential compression devices in place to his bilateral lower extremities. GASTROINTESTINAL: Abdomen soft, nontender, nondistended. Hypoactive bowel sounds present 4 quadrants. Tolerating diet. Passing flatus. No guarding or rigidity. GENITOURINARY: Moore present draining clear, yellow urine. Output 505 mL in the last 8 hours INTEGUMENTARY: Skin is warm and dry with no evidence of clubbing or cyanosis. Midline sternal incision clean dry and well approximated, covered with dry intact dressing. Left lower extremity EVH sites well approximated without redness or drainage. Left arm radial artery harvest sites clean, dry and approximated. No drainage or redness is present. NEUROLOGIC: Cranial nerves II through XII intact. No focal deficits. MUSKULOSKELETAL: Able to move all extremities, strength equal bilaterally, generalized weakness. PSYCHIATRIC: Alert and oriented to person place and time, appropriate affect, intact judgment and insight. INVASIVE LINES AND TUBES: Mediastinal/left pleural chest tubes present and connected to low continuous wall suction, no air leaks present. Chest tubes with 330 mL of thin serosanguineous drainage overnight, 650 mL output since surgery. Right internal jugular Glen Jean/Cordis, right radial arterial line present. Last CO 4.9, CI 2.5, PA 31/10 and CVP 7 mmHg. Left arm AAKASH drain in place with scant thin serosanguineous drainage, 10 mL output in the last 8 hours. - Allied health notes Allied health notes reviewed: nursing - Labs CBC & Chem 7: 07/01/21 04:09 07/01/21 04:09 Labs: Abnormal Lab Results - Last 24 Hours (Table) 06/28/21 06/30/21 06/30/21 Range/Units 15:19 08:41 10:24 WBC (3.8-10.6) k/uL RBC (4.30-5.90) m/uL Hgb (13.0-17.5) gm/dL Hct (39.0-53.0) % Neutrophils # (1.3-7.7) k/uL Lymphocytes # (1.0-4.8) k/uL INR (<1.2) ABG pO2 140 H 157 H (83-108) mmHg ABG HCO3 28 H 26 H (21-25) mmol/L ABG Total CO2 29 H 28 H (19-24) mmol/L ABG O2 Saturation 99.1 H 99.0 H (94-97) % ABG Potassium 4.6 H (3.4-4.5) mmol/L ABG Glucose 121 H (75-99) mg/dL ABG Lactic Acid (0.5-1.6) mmol/L Hemoglobin (13.0-17.5) gm/dL Sodium (137-145) mmol/L Chloride (98-107) mmol/L Carbon Dioxide (22-30) mmol/L Glucose (74-99) mg/dL POC Glucose (mg/dL) (75-99) mg/dL Magnesium (1.6-2.3) mg/dL Total Protein (6.3-8.2) g/dL Arterial Blood Potassium 4.6 H (3.4-4.5) mmol/L Arterial Blood Glucose 121 H (75-99) mg/dL Crossmatch See Detail 06/30/21 06/30/21 06/30/21 Range/Units 11:10 11:45 12:15 WBC (3.8-10.6) k/uL RBC (4.30-5.90) m/uL Hgb (13.0-17.5) gm/dL Hct (39.0-53.0) % Neutrophils # (1.3-7.7) k/uL Lymphocytes # (1.0-4.8) k/uL INR (<1.2) ABG pO2 115 H 119 H (83-108) mmHg ABG HCO3 (21-25) mmol/L ABG Total CO2 25 H 25 H 25 H (19-24) mmol/L ABG O2 Saturation 97.8 H 98.5 H 98.7 H (94-97) % ABG Potassium (3.4-4.5) mmol/L ABG Glucose 116 H 119 H 123 H (75-99) mg/dL ABG Lactic Acid 2.2 H* 2.0 H (0.5-1.6) mmol/L Hemoglobin 12.7 L 12.3 L 12.3 L (13.0-17.5) gm/dL Sodium (137-145) mmol/L Chloride (98-107) mmol/L Carbon Dioxide (22-30) mmol/L Glucose (74-99) mg/dL POC Glucose (mg/dL) (75-99) mg/dL Magnesium (1.6-2.3) mg/dL Total Protein (6.3-8.2) g/dL Arterial Blood Potassium (3.4-4.5) mmol/L Arterial Blood Glucose 116 H 119 H 123 H (75-99) mg/dL Crossmatch 06/30/21 06/30/21 06/30/21 Range/Units 13:07 14:18 14:23 WBC 12.6 H (3.8-10.6) k/uL RBC 3.88 L (4.30-5.90) m/uL Hgb 12.0 L D (13.0-17.5) gm/dL Hct 34.9 L (39.0-53.0) % Neutrophils # 10.5 H (1.3-7.7) k/uL Lymphocytes # (1.0-4.8) k/uL INR (<1.2) ABG pO2 (83-108) mmHg ABG HCO3 (21-25) mmol/L ABG Total CO2 25 H (19-24) mmol/L ABG O2 Saturation 97.2 H (94-97) % ABG Potassium (3.4-4.5) mmol/L ABG Glucose 125 H (75-99) mg/dL ABG Lactic Acid 2.0 H (0.5-1.6) mmol/L Hemoglobin 12.0 L (13.0-17.5) gm/dL Sodium (137-145) mmol/L Chloride (98-107) mmol/L Carbon Dioxide (22-30) mmol/L Glucose (74-99) mg/dL POC Glucose (mg/dL) 128 H (75-99) mg/dL Magnesium (1.6-2.3) mg/dL Total Protein (6.3-8.2) g/dL Arterial Blood Potassium (3.4-4.5) mmol/L Arterial Blood Glucose 125 H (75-99) mg/dL Crossmatch 06/30/21 06/30/21 06/30/21 Range/Units 14:23 14:23 14:30 WBC (3.8-10.6) k/uL RBC (4.30-5.90) m/uL Hgb (13.0-17.5) gm/dL Hct (39.0-53.0) % Neutrophils # (1.3-7.7) k/uL Lymphocytes # (1.0-4.8) k/uL INR 1.2 H (<1.2) ABG pO2 215 H (83-108) mmHg ABG HCO3 (21-25) mmol/L ABG Total CO2 25 H (19-24) mmol/L ABG O2 Saturation 100.0 H (94-97) % ABG Potassium (3.4-4.5) mmol/L ABG Glucose (75-99) mg/dL ABG Lactic Acid (0.5-1.6) mmol/L Hemoglobin (13.0-17.5) gm/dL Sodium (137-145) mmol/L Chloride 108 H (98-107) mmol/L Carbon Dioxide 21 L (22-30) mmol/L Glucose 130 H (74-99) mg/dL POC Glucose (mg/dL) (75-99) mg/dL Magnesium 1.3 L (1.6-2.3) mg/dL Total Protein 5.6 L (6.3-8.2) g/dL Arterial Blood Potassium (3.4-4.5) mmol/L Arterial Blood Glucose (75-99) mg/dL Crossmatch 06/30/21 06/30/21 06/30/21 Range/Units 16:02 17:01 17:05 WBC 17.5 H (3.8-10.6) k/uL RBC 4.12 L (4.30-5.90) m/uL Hgb 12.7 L (13.0-17.5) gm/dL Hct 37.3 L (39.0-53.0) % Neutrophils # 15.4 H (1.3-7.7) k/uL Lymphocytes # (1.0-4.8) k/uL INR (<1.2) ABG pO2 (83-108) mmHg ABG HCO3 (21-25) mmol/L ABG Total CO2 (19-24) mmol/L ABG O2 Saturation (94-97) % ABG Potassium (3.4-4.5) mmol/L ABG Glucose (75-99) mg/dL ABG Lactic Acid (0.5-1.6) mmol/L Hemoglobin (13.0-17.5) gm/dL Sodium (137-145) mmol/L Chloride (98-107) mmol/L Carbon Dioxide (22-30) mmol/L Glucose (74-99) mg/dL POC Glucose (mg/dL) 197 H 191 H (75-99) mg/dL Magnesium (1.6-2.3) mg/dL Total Protein (6.3-8.2) g/dL Arterial Blood Potassium (3.4-4.5) mmol/L Arterial Blood Glucose (75-99) mg/dL Crossmatch 06/30/21 06/30/21 06/30/21 Range/Units 18:00 18:57 18:59 WBC (3.8-10.6) k/uL RBC (4.30-5.90) m/uL Hgb (13.0-17.5) gm/dL Hct (39.0-53.0) % Neutrophils # (1.3-7.7) k/uL Lymphocytes # (1.0-4.8) k/uL INR (<1.2) ABG pO2 67 L (83-108) mmHg ABG HCO3 (21-25) mmol/L ABG Total CO2 (19-24) mmol/L ABG O2 Saturation 93.6 L (94-97) % ABG Potassium (3.4-4.5) mmol/L ABG Glucose (75-99) mg/dL ABG Lactic Acid (0.5-1.6) mmol/L Hemoglobin (13.0-17.5) gm/dL Sodium (137-145) mmol/L Chloride (98-107) mmol/L Carbon Dioxide (22-30) mmol/L Glucose (74-99) mg/dL POC Glucose (mg/dL) 220 H 191 H (75-99) mg/dL Magnesium (1.6-2.3) mg/dL Total Protein (6.3-8.2) g/dL Arterial Blood Potassium (3.4-4.5) mmol/L Arterial Blood Glucose (75-99) mg/dL Crossmatch 06/30/21 06/30/21 06/30/21 Range/Units 20:07 20:10 20:50 WBC 17.6 H (3.8-10.6) k/uL RBC 4.29 L (4.30-5.90) m/uL Hgb (13.0-17.5) gm/dL Hct (39.0-53.0) % Neutrophils # 16.0 H (1.3-7.7) k/uL Lymphocytes # 0.7 L (1.0-4.8) k/uL INR (<1.2) ABG pO2 (83-108) mmHg ABG HCO3 (21-25) mmol/L ABG Total CO2 (19-24) mmol/L ABG O2 Saturation (94-97) % ABG Potassium (3.4-4.5) mmol/L ABG Glucose (75-99) mg/dL ABG Lactic Acid (0.5-1.6) mmol/L Hemoglobin (13.0-17.5) gm/dL Sodium (137-145) mmol/L Chloride (98-107) mmol/L Carbon Dioxide (22-30) mmol/L Glucose (74-99) mg/dL POC Glucose (mg/dL) 184 H 169 H (75-99) mg/dL Magnesium (1.6-2.3) mg/dL Total Protein (6.3-8.2) g/dL Arterial Blood Potassium (3.4-4.5) mmol/L Arterial Blood Glucose (75-99) mg/dL Crossmatch 06/30/21 06/30/21 07/01/21 Range/Units 22:14 23:29 00:28 WBC (3.8-10.6) k/uL RBC (4.30-5.90) m/uL Hgb (13.0-17.5) gm/dL Hct (39.0-53.0) % Neutrophils # (1.3-7.7) k/uL Lymphocytes # (1.0-4.8) k/uL INR (<1.2) ABG pO2 (83-108) mmHg ABG HCO3 (21-25) mmol/L ABG Total CO2 (19-24) mmol/L ABG O2 Saturation (94-97) % ABG Potassium (3.4-4.5) mmol/L ABG Glucose (75-99) mg/dL ABG Lactic Acid (0.5-1.6) mmol/L Hemoglobin (13.0-17.5) gm/dL Sodium (137-145) mmol/L Chloride (98-107) mmol/L Carbon Dioxide (22-30) mmol/L Glucose (74-99) mg/dL POC Glucose (mg/dL) 148 H 138 H 120 H (75-99) mg/dL Magnesium (1.6-2.3) mg/dL Total Protein (6.3-8.2) g/dL Arterial Blood Potassium (3.4-4.5) mmol/L Arterial Blood Glucose (75-99) mg/dL Crossmatch 07/01/21 07/01/21 07/01/21 Range/Units 01:12 EST 01:34 EST 04:09 WBC 14.1 H (3.8-10.6) k/uL RBC 4.00 L (4.30-5.90) m/uL Hgb 12.1 L (13.0-17.5) gm/dL Hct 36.1 L (39.0-53.0) % Neutrophils # 12.0 H (1.3-7.7) k/uL Lymphocytes # (1.0-4.8) k/uL INR (<1.2) ABG pO2 (83-108) mmHg ABG HCO3 (21-25) mmol/L ABG Total CO2 (19-24) mmol/L ABG O2 Saturation (94-97) % ABG Potassium (3.4-4.5) mmol/L ABG Glucose (75-99) mg/dL ABG Lactic Acid (0.5-1.6) mmol/L Hemoglobin (13.0-17.5) gm/dL Sodium (137-145) mmol/L Chloride (98-107) mmol/L Carbon Dioxide (22-30) mmol/L Glucose (74-99) mg/dL POC Glucose (mg/dL) 109 H 131 H (75-99) mg/dL Magnesium (1.6-2.3) mg/dL Total Protein (6.3-8.2) g/dL Arterial Blood Potassium (3.4-4.5) mmol/L Arterial Blood Glucose (75-99) mg/dL Crossmatch 07/01/21 07/01/21 07/01/21 Range/Units 04:09 06:30 07:19 WBC (3.8-10.6) k/uL RBC (4.30-5.90) m/uL Hgb (13.0-17.5) gm/dL Hct (39.0-53.0) % Neutrophils # (1.3-7.7) k/uL Lymphocytes # (1.0-4.8) k/uL INR (<1.2) ABG pO2 (83-108) mmHg ABG HCO3 (21-25) mmol/L ABG Total CO2 (19-24) mmol/L ABG O2 Saturation (94-97) % ABG Potassium (3.4-4.5) mmol/L ABG Glucose (75-99) mg/dL ABG Lactic Acid (0.5-1.6) mmol/L Hemoglobin (13.0-17.5) gm/dL Sodium 134 L (137-145) mmol/L Chloride (98-107) mmol/L Carbon Dioxide (22-30) mmol/L Glucose (74-99) mg/dL POC Glucose (mg/dL) 109 H 121 H (75-99) mg/dL Magnesium (1.6-2.3) mg/dL Total Protein 5.7 L (6.3-8.2) g/dL Arterial Blood Potassium (3.4-4.5) mmol/L Arterial Blood Glucose (75-99) mg/dL Crossmatch Microbiology - Last 24 Hours (Table) 06/29/21 14:48 Nasal Screen MRSA/MSSA - Final Nasal Swab - Imaging and Cardiology Chest x-ray: report reviewed, image reviewed Assessment and Plan Assessment: 1. Multivessel coronary artery disease 2. Status post ventricular fibrillation arrest, status post stress test with defibrillation 1 and CPR, with return of ROSC 3. History of hyperlipidemia 4. Lifetime nonsmoker, with a preoperative FEV1 73% of predicted 5. Family history of heart disease including premature coronary artery disease with his mother having a myocardial infarction at less than 50 years old 6. Completed Moderna vaccination for COVID-19, last dose November 2020 Plan: 1. Continue aspirin, statin, Plavix, and beta farhat. Will increase beta farhat therapy as tolerated, his beta farhat was increased to metoprolol 50 mg by mouth twice a day last evening. 2. Discontinue nitroglycerin drip and cardizem drip. Will start amlodipine 2.5 mg daily at noon for radial artery spasm prophylaxis, discontinue IV Cardizem after Norvasc is given. 3. Wean O2 as tolerated. Encourage incentive spirometry use 10 times every hour while awake. Bronchodilators per pulmonology management. 4. Increase activity, ambulate as tolerated. PT/OT/cardiac rehab consulted. 5. Will monitor daily labs and chest x-rays. Electrolyte replacement per protocol. 6. GI/DVT prophylaxis. 7. Insulin management per primary care service. The patient needs tight blood sugar control to prevent infection and promote sternal union. He is a nondiabetic with a preoperative hemoglobin A1c of 5.8%. 8. Pain control current medication regimen. Toradol has been added for additional pain control. 9. Discontinue [place]-Kenneth catheter. Connect Cordis to continuous CVP monitoring. 10. Discontinue left arm AAKASH drain. 11. Continue mediastinal/left pleural chest tubes for another 24 hours 12. Continue Moore for another 24 hours for strict accurate intake and output. Daily weights. 13. More recommendations to follow based on patient's clinical course. Time with Patient: Greater than 30
[2021-07-01 10:59] LABS: Glucose,Whole Blood 113 mg/dL (75-99)
[2021-07-01] MEDS: LACTATED RINGERS 1,000 ML IV SCH (11:23)
[2021-07-01] MEDS ORDERED: amLODIPine 2.5 MG TAB PO STA (11:57)
[2021-07-01] MEDS ORDERED: amLODIPine 2.5 MG TAB PO SCH (12:00)
[2021-07-01 12:10] LABS: Glucose,Whole Blood 126 mg/dL (75-99)
--- NOTE | 2021-07-01 13:01 | P.PN ---
Subjective Progress Note Date: 07/01/21 Principal diagnosis: Acute cardiac arrest This is a 65-year-old male patient of Dr. Pimentel, with past medical history of hyperlipidemia, osteoarthritis, patient is a nonsmoker, who was getting a cardiac workup which also included a stress test at the [facility] office today. Patient was wearing a heart monitor for the last month because of episodes of exertional dyspnea, however at the time of his stress test the monitor was off. During his stress test patient went into ventricular fibrillation cardiac arrest. CPR was started for 1-1/2 minutes when the EEG was applied and a shock was delivered and patient was back in sinus rhythm. He regained consciousness immediately he was given 150 mg of IV push amiodarone, transported by EMS to the emergency department for further evaluation and management. Patient is awake and alert in the emergency department, complaining of some soreness to his chest, and nausea. EKG was obtained showing sinus mechanism with first-degree AV block and a rate of 73 BPM. He has evidence of Q wave in the leads 3 and aVF, and leads V2, V3. Cardiology is on the case, and evaluating the patient in the emergency department. Chest x-ray was obtained showing heart upper limits of normal in size, no acute cardiopulmonary process. Patient is breathing comfortably, he is on 2 L of oxygen pulse ox is 100%, afebrile, blood pressure is 147/89. She labs have been reviewed, CBC was within normal limits with white blood cell count of 10.1, hemoglobin of 15.4, with a count is 261, d-dimer was 1.08, coagulation profile was within normal limits, electrolytes and renal profile were unremarkable, first troponin was less than 0.012, TSH was 3.040. Patient is on point tenderness a ramy at 20 ML per hour, he is currently on amiodarone infusion at 1 mg/m, and heparin infusion per weight-based protocol, he was given Lipitor 80 mg. His home dose 81 mg aspirin, Toprol-XL has been restarted. Echocardiogram is pending, COVID-19 PCR is pending. Admission to the intensive care unit was requested, patient is currently awaiting a bed in the ICU. On 06/28/2021 patient seen in follow-up in intensive care unit. He is currently having a 2-D echo completed. She is resting comfortably in bed, denies any chest pain or shortness of breath, her pulse ox is 93-94%, afebrile, hemodynamically patient is stable. Patient is currently on amiodarone infusion at 0.5 mg/h, and heparin infusion per weight-based protocol, he was taken to [facility] last night for cardiac catheterization which revealed multivessel coronary artery disease including 80% proximal LAD stenosis, 100% proximal to mid LAD with left to left collaterals, and 95% moderate diagonal 1, 95% moderate to large caliber OM1 and 95%, distal circumflex. His LVEDP was 11. CT surgery has been consulted for coronary artery revascularization surgery. Patient was seen by CT surgery, and is currently undergoing preop evaluation. No acute events overnight. No episodes of arrhythmia's. Today's labs have been reviewed, white blood cell count is 9, hemoglobin is 14.7, electrolytes and renal profile were within normal limits. On 06/29/2021 patient seen in follow-up in intensive care unit, he is awake and alert, in no acute distress, his resting comfortably in bed, he denies any specific complaints, no compressive chest pain, no difficulty breathing, repair pulse ox is 93%, vital signs have been stable no fever or chills. Today's labs have been reviewed, CBC is within normal limits, white blood, 0.7, hemoglobin is 15.1, patient remains on heparin infusion, his PTT is a 69.7, electrolytes and renal profile were unremarkable, patient had a bedside PFT which showed FEV1 of 2.56 L or 73% of predicted and FVC of 2.96 L or 63% of predicted with an FEV1 to FVC ratio of 115%, MVV was 96, this was consistent with mild restriction. And based on his PFT patient is considered to be no increased operative risk. Surgery is scheduled for tomorrow. No other events overnight. Please in sinus mechanism, no arrhythmias overnight, he is on Toprol-XL at 25 mg daily, aspirin, Lipitor 40 mg daily. On 07/01/2021 patient seen in follow-up in intensive care unit, today is postoperative day #1, status post five-vessel coronary artery bypass grafting, with sequential CHAN to mid LAD, left radial artery graft to obtuse marginal, SVG to the first diagonal, SVG with patchy angioplasty to PDA, appendectomy aortic ultrasonography, endovascular vein harvest of the left greater saphenous vein, and left radial artery, and left atrial appendage exclusion. Patient is doing very well, he was extubated within 6 hours of OR exit time, he is awake, in no acute distress, he is on 6 L of oxygen, sitting up in the recliner, he is on lactated Ringer's at a rate of 40 per hour, insulin infusion at 2.5 units per hour. Doing well, hemodynamically he is stable, he is in sinus mechanism with a rate of 81, cardiac output was 4.1 and cardiac index is 2.1, not on any vasop ressor support blood pressures 125/44. Today's chest x-ray shows atelectasis at the lung bases, no pneumothorax. Patient has a mediastinal and left pleural chest tube in place with a total of 700 mL of thin serosanguineous output in the last 24 hours. Patient is on 6 L of oxygen pulse ox is 96%. His incentive spirometry effort is 750-1000 ML. His pain is reasonably well controlled. Today's labs have been reviewed, his white blood cell count is 14.1, hemoglobin is 12.1, sodium is 134, direct electrolytes and renal profile are unremarkable. LFTs are within normal limits. Patient isn't breathing treatments, breathing fairly comfortably, slightly congested cough. He is tolerating clear liquid diet. Objective - Vital Signs Vital signs: Vital Signs Temp 98.6 F 07/01/21 12:00 Pulse 86 07/01/21 12:00 Resp 25 H 07/01/21 12:00 BP 114/67 07/01/21 07:00 Pulse Ox 92 L 07/01/21 12:00 Intake & Output 06/30/21 07/01/21 07/01/21 19:59 06:59 18:59 Intake Total 1653.560 Output Total 335 Balance 1318.560 Weight Intake: IV 745 ACETAMINOPHEN IV (For NPO ) 1,000 mg In Empty Bag 1 bag @ 400 mls/hr IVPB Q6HR [facility] Rx#:[id number] Albumin Human 5% 250 ml 250 In Empty Bag 1 bag @ 250 mls/hr IVPB Q1HR PRN Rx#: [id number] CO/CI 30 Diltiazem 125 mg In 10 Sodium Chloride 0.9% 100 ml @ 5 MG/HR 5 mls/hr IV .Q24H [facility] Rx#:[id number] Lactated Ringers 1,000 ml 210 @ 20 mls/hr IV .Q24H [facility] Rx#:[id number] Magnesium Sulfate-D5w Pmx 100 1 gm In Dextrose/Water 1 100ml.bag @ 100 mls/hr IVPB Q1H [facility] Rx#: [id number] Nitroglycerin-D5w Pmx 50 mg In Dextrose/Water 1 250ml.bag @ 5 MCG/MIN 1.5 mls/hr IV .Q24H [facility] Rx#: [id number] Pressure bag 45 ceFAZolin 2 gm In Sodium 100 Chloride 0.9% 50 ml @ 100 mls/hr IVPB ONCE ONE Rx# :[id number] Intake, IV Titration 8.560 Amount Clevidipine Butyrate 25 mg In Empty Bag 1 bag @ 1 MG/HR 2 mls/hr IV .Q24H [facility] Rx#:[id number] Insulin Regular 100 unit 8.560 In Sodium Chloride 0.9% 100 ml @ Per Protocol IV .Q0M [facility] Rx#:[id number] propofoL 1,000 mg In Empty Bag 1 bag @ Titrate IV .Q0M [facility] Rx#: [id number] Oral 400 Tube Feeding 500 Output: Chest Tube Drainage 160 Chest Tube Left Pleural/ 160 Mediastinal Drainage 0 Left Wrist 0 Urine 175 Estimated Blood Loss Other: Voiding Method Indwelling Catheter ABP, PAP, CO, CI - Last Documented Arterial Blood Pressure 133/61 Pulmonary Artery Pressure 30/7 Cardiac Output 4.1 Cardiac Index 2.1 - Exam GENERAL EXAM: Alert, very pleasant, 65-year-old white male, 6 L of oxygen a pulse ox of 96%, sitting up in a recliner, in no acute distress HEAD: Normocephalic/atraumatic. EYES: Normal reaction of pupils, equal size. Conjunctiva pink, sclera white. NOSE: Clear with pink turbinates. THROAT: No erythema or exudates. NECK: No masses, no JVD, no thyroid enlargement, no adenopathy. CHEST: No chest wall deformity. Symmetrical expansion. Midsternal incision is clean dry and intact, chest tube site with mediastinal and left pleural chest tube clean dry and intact, chest tube is connected to Pleur-evac, and wall suction, with a total of 700 mL of thin serosanguineous output, no air leak LUNGS: Equal air entry with no crackles, wheeze, rhonchi or dullness. CVS: Regular rate and rhythm, normal S1 and S2, no gallops, no murmurs, no rubs ABDOMEN: Soft, nontender. No hepatosplenomegaly, normal bowel sounds, no guardi ng or rigidity. EXTREMITIES: No clubbing, no edema, no cyanosis, 2+ pulses and upper and lower extremities. Left radial arterial graft site clean dry and intact, AAKASH drain is compressed and draining small amount of sanguinous output. Left popliteal area, and left lower leg saphenous vein graft harvest site incisions clean dry and intact, bilateral lower extremities are Demetrio wrapped, and SCDs are in place MUSCULOSKELETAL: Muscle strength and tone normal. SPINE: No scoliosis or deformity SKIN: No rashes CENTRAL NERVOUS SYSTEM: Alert and oriented -3. No focal deficits, tone is normal in all 4 extremities. PSYCHIATRIC: Alert and oriented -3. Appropriate affect. Intact judgment and insight. - Labs CBC & Chem 7: 07/01/21 04:09 07/01/21 04:09 Labs: Abnormal Lab Results - Last 24 Hours (Table) 06/28/21 06/30/21 06/30/21 Range/Units 15:19 14:18 14:23 WBC 12.6 H (3.8-10.6) k/uL RBC 3.88 L (4.30-5.90) m/uL Hgb 12.0 L D (13.0-17.5) gm/dL Hct 34.9 L (39.0-53.0) % Neutrophils # 10.5 H (1.3-7.7) k/uL Lymphocytes # (1.0-4.8) k/uL INR (<1.2) ABG pO2 (83-108) mmHg ABG Total CO2 (19-24) mmol/L ABG O2 Saturation (94-97) % Sodium (137-145) mmol/L Chloride (98-107) mmol/L Carbon Dioxide (22-30) mmol/L Glucose (74-99) mg/dL POC Glucose (mg/dL) 128 H (75-99) mg/dL Magnesium (1.6-2.3) mg/dL Total Protein (6.3-8.2) g/dL Crossmatch See Detail 06/30/21 06/30/21 06/30/21 Range/Units 14:23 14:23 14:30 WBC (3.8-10.6) k/uL RBC (4.30-5.90) m/uL Hgb (13.0-17.5) gm/dL Hct (39.0-53.0) % Neutrophils # (1.3-7.7) k/uL Lymphocytes # (1.0-4.8) k/uL INR 1.2 H (<1.2) ABG pO2 215 H (83-108) mmHg ABG Total CO2 25 H (19-24) mmol/L ABG O2 Saturation 100.0 H (94-97) % Sodium (137-145) mmol/L Chloride 108 H (98-107) mmol/L Carbon Dioxide 21 L (22-30) mmol/L Glucose 130 H (74-99) mg/dL POC Glucose (mg/dL) (75-99) mg/dL Magnesium 1.3 L (1.6-2.3) mg/dL Total Protein 5.6 L (6.3-8.2) g/dL Crossmatch 06/30/21 06/30/21 06/30/21 Range/Units 16:02 17:01 17:05 WBC 17.5 H (3.8-10.6) k/uL RBC 4.12 L (4.30-5.90) m/uL Hgb 12.7 L (13.0-17.5) gm/dL Hct 37.3 L (39.0-53.0) % Neutrophils # 15.4 H (1.3-7.7) k/uL Lymphocytes # (1.0-4.8) k/uL INR (<1.2) ABG pO2 (83-108) mmHg ABG Total CO2 (19-24) mmol/L ABG O2 Saturation (94-97) % Sodium (137-145) mmol/L Chloride (98-107) mmol/L Carbon Dioxide (22-30) mmol/L Glucose (74-99) mg/dL POC Glucose (mg/dL) 197 H 191 H (75-99) mg/dL Magnesium (1.6-2.3) mg/dL Total Protein (6.3-8.2) g/dL Crossmatch 06/30/21 06/30/21 06/30/21 Range/Units 18:00 18:57 18:59 WBC (3.8-10.6) k/uL RBC (4.30-5.90) m/uL Hgb (13.0-17.5) gm/dL Hct (39.0-53.0) % Neutrophils # (1.3-7.7) k/uL Lymphocytes # (1.0-4.8) k/uL INR (<1.2) ABG pO2 67 L (83-108) mmHg ABG Total CO2 (19-24) mmol/L ABG O2 Saturation 93.6 L (94-97) % Sodium (137-145) mmol/L Chloride (98-107) mmol/L Carbon Dioxide (22-30) mmol/L Glucose (74-99) mg/dL POC Glucose (mg/dL) 220 H 191 H (75-99) mg/dL Magnesium (1.6-2.3) mg/dL Total Protein (6.3-8.2) g/dL Crossmatch 06/30/21 06/30/21 06/30/21 Range/Units 20:07 20:10 20:50 WBC 17.6 H (3.8-10.6) k/uL RBC 4.29 L (4.30-5.90) m/uL Hgb (13.0-17.5) gm/dL Hct (39.0-53.0) % Neutrophils # 16.0 H (1.3-7.7) k/uL Lymphocytes # 0.7 L (1.0-4.8) k/uL INR (<1.2) ABG pO2 (83-108) mmHg ABG Total CO2 (19-24) mmol/L ABG O2 Saturation (94-97) % Sodium (137-145) mmol/L Chloride (98-107) mmol/L Carbon Dioxide (22-30) mmol/L Glucose (74-99) mg/dL POC Glucose (mg/dL) 184 H 169 H (75-99) mg/dL Magnesium (1.6-2.3) mg/dL Total Protein (6.3-8.2) g/dL Crossmatch 06/30/21 06/30/21 07/01/21 Range/Units 22:14 23:29 00:28 WBC (3.8-10.6) k/uL RBC (4.30-5.90) m/uL Hgb (13.0-17.5) gm/dL Hct (39.0-53.0) % Neutrophils # (1.3-7.7) k/uL Lymphocytes # (1.0-4.8) k/uL INR (<1.2) ABG pO2 (83-108) mmHg ABG Total CO2 (19-24) mmol/L ABG O2 Saturation (94-97) % Sodium (137-145) mmol/L Chloride (98-107) mmol/L Carbon Dioxide (22-30) mmol/L Glucose (74-99) mg/dL POC Glucose (mg/dL) 148 H 138 H 120 H (75-99) mg/dL Magnesium (1.6-2.3) mg/dL Total Protein (6.3-8.2) g/dL Crossmatch 07/01/21 07/01/21 07/01/21 Range/Units 01:12 EST 01:34 EST 04:09 WBC 14.1 H (3.8-10.6) k/uL RBC 4.00 L (4.30-5.90) m/uL Hgb 12.1 L (13.0-17.5) gm/dL Hct 36.1 L (39.0-53.0) % Neutrophils # 12.0 H (1.3-7.7) k/uL Lymphocytes # (1.0-4.8) k/uL INR (<1.2) ABG pO2 (83-108) mmHg ABG Total CO2 (19-24) mmol/L ABG O2 Saturation (94-97) % Sodium (137-145) mmol/L Chloride (98-107) mmol/L Carbon Dioxide (22-30) mmol/L Glucose (74-99) mg/dL POC Glucose (mg/dL) 109 H 131 H (75-99) mg/dL Magnesium (1.6-2.3) mg/dL Total Protein (6.3-8.2) g/dL Crossmatch 07/01/21 07/01/21 07/01/21 Range/Units 04:09 06:30 07:19 WBC (3.8-10.6) k/uL RBC (4.30-5.90) m/uL Hgb (13.0-17.5) gm/dL Hct (39.0-53.0) % Neutrophils # (1.3-7.7) k/uL Lymphocytes # (1.0-4.8) k/uL INR (<1.2) ABG pO2 (83-108) mmHg ABG Total CO2 (19-24) mmol/L ABG O2 Saturation (94-97) % Sodium 134 L (137-145) mmol/L Chloride (98-107) mmol/L Carbon Dioxide (22-30) mmol/L Glucose (74-99) mg/dL POC Glucose (mg/dL) 109 H 121 H (75-99) mg/dL Magnesium (1.6-2.3) mg/dL Total Protein 5.7 L (6.3-8.2) g/dL Crossmatch 07/01/21 07/01/21 07/01/21 Range/Units 08:02 08:57 10:12 WBC (3.8-10.6) k/uL RBC (4.30-5.90) m/uL Hgb (13.0-17.5) gm/dL Hct (39.0-53.0) % Neutrophils # (1.3-7.7) k/uL Lymphocytes # (1.0-4.8) k/uL INR (<1.2) ABG pO2 (83-108) mmHg ABG Total CO2 (19-24) mmol/L ABG O2 Saturation (94-97) % Sodium (137-145) mmol/L Chloride (98-107) mmol/L Carbon Dioxide (22-30) mmol/L Glucose (74-99) mg/dL POC Glucose (mg/dL) 126 H 125 H 120 H (75-99) mg/dL Magnesium (1.6-2.3) mg/dL Total Protein (6.3-8.2) g/dL Crossmatch 07/01/21 07/01/21 Range/Units 10:56 12:09 WBC (3.8-10.6) k/uL RBC (4.30-5.90) m/uL Hgb (13.0-17.5) gm/dL Hct (39.0-53.0) % Neutrophils # (1.3-7.7) k/uL Lymphocytes # (1.0-4.8) k/uL INR (<1.2) ABG pO2 (83-108) mmHg ABG Total CO2 (19-24) mmol/L ABG O2 Saturation (94-97) % Sodium (137-145) mmol/L Chloride (98-107) mmol/L Carbon Dioxide (22-30) mmol/L Glucose (74-99) mg/dL POC Glucose (mg/dL) 113 H 126 H (75-99) mg/dL Magnesium (1.6-2.3) mg/dL Total Protein (6.3-8.2) g/dL Crossmatch Microbiology - Last 24 Hours (Table) 06/29/21 14:48 Nasal Screen MRSA/MSSA - Final Nasal Swab Assessment and Plan Plan: Assessment: #1. Multivessel coronary artery disease, with episode of acute cardiac arrest related to ventricular fibrillation during an outpatient stress test, requiring brief CPR, and defibrillation and return of spontaneous circulation #2. Status post 5 vessel off-pump coronary artery bypass grafting surgery, with CHAN to the mid LAD, left radial artery graft to obtuse marginal, SVG to the first diagonal, SVG to PDA, and aortic ultrasonography, endovascular vein moreno rvest of the left greater saphenous vein and left radial artery, and left atrial appendage exclusion with the 35mm AtriCure clip on 06/30/2021, today is postoperative day #1 #3. Routine postoperative ventilator management, patient was successfully weaned and extubated on postoperative day #0, within 6 hours of operating room exit time #4. Leukocytosis possibly reactive #6. Hyperlipidemia #7. Osteoarthritis #8. Nonsmoker, pre-op FEV of 2.56 L or 73% of predicted and FVC of 2.96 L or 63% of predicted with an FEV1 to FVC ratio of 115% this was consistent with mild restriction, MVV was 96 Plan: Patient was successfully weaned and extubated from mechanical ventilator Tolerating extubation well so far Continue encouraging deep breathing and coughing Today's chest x-ray has been reviewed showing bibasilar atelectasis Continue breathing treatments Maintain pain control Hemodynamically patient is stable No acute events overnight Chest tubes remain in place No air leak, no pneumothorax In sinus mechanism Continue to closely follow in intensive care unit I performed a history & physical examination of the patient and discussed their management with my nurse practitioner, Yudi Streeter. I reviewed the nurse practitioner's note and agree with the documented findings and plan of care. Lung sounds are positive for clear breath sounds throughout the lung tran. The findings and the impression was discussed with the patient. I attest to the documentation by the nurse practitioner. Time with Patient: Greater than 30
[2021-07-01 13:07] LABS: Glucose,Whole Blood 170 mg/dL (75-99)
[2021-07-01 14:16] LABS: Glucose,Whole Blood 154 mg/dL (75-99)
--- NOTE | 2021-07-01 14:25 | P.PN ---
Subjective Patient is pleasant 65-year-old male with a history of hyperlipidemia family history of coronary artery disease chest pains who presented approximately one month ago to our cardiology office to be evaluated for episodes where he will feel fine for most the day and then have a 5-10 minute "spell" where he will feel short of breath and had chest tightness. These would normally only occur approximately once a week however were increasing in frequency. He also has been having some episodes of chest tightness if he overdoes things such as mowing the grass for the last few years. He therefore underwent workup with a treadmill stress test earlier today in the office. 3 minutes into recovery he was sitting in a chair and started to have ST downsloping noted in the inferior leads and then 6 minutes into recovery had a ventricular fibrillation arrest. Patient underwent CPR and then defibrillation and was then transferred to [facility]. Patient seen and examined in emergency department. Patient states that since that time he denies any chest pain or pressure, no shortness breath. He is feeling somewhat nauseous however improving. EKG shows normal sinus rhythm, Q waves V1 and V2, no significant ST depressions or T-wave abnor malities. Blood work shows white blood cell count 10.1, hemoglobin 15.4, d- dimer 1.0, BUN 17, creatinine 0.8, glucose 131, initial troponin less than 0.012. No current chest pain or pressure, feels well. 06/28 Patient seen and examined. Patient denies any chest pain or pressure. He underwent heart catheterization yesterday which showed multivessel disease. Being evaluated for CABG. He describes mild congestion no orthopnea. 06/29 Patient seen and examined. Patient denies any chest pain or pressure. Blood pressures at been well controlled. No significant events on telemetry. 07/01 Continue examined. Patient underwent CABG yesterday. States he is feeling fairly well today. Does have some back discomfort and pain around the incision however no significant chest discomfort. Did have some pain around the chest tube site however feels better today. Sitting up in a chair. He was able to cough up some mucus. PHYSICAL EXAM: VITAL SIGNS: Reviewed. GENERAL: Well-developed in no acute distress. HEENT: Head is normocephalic. Pupils are equal, round. Sclerae anicteric. Mucous membranes of the mouth are moist. Neck supple. No JVD or thyromegaly LUNGS: Respirations even and unlabored. Lungs with bilateral wheezing and bibasilar rales. HEART: Regular rate and rhythm. S1 and S2 heard. ABDOMEN: Soft. Nondistended. Nontender. EXTREMITIES: Normal range of motion. No clubbing or cyanosis. Peripheral pulses intact. Bilateral lower extremity edema noted, right worse than left NEUROLOGIC: Awake and alert. Oriented x 3. ASSESSMENT: 1. Status post cardiac arrest/Ventricular fibrillation during stress test 2. CAD s/p CABG 3. Hyperlipidemia 4. Elevated d-dimer, do not suspect PE given clinical scenario PLAN: Continue with supportive care in ICU. Continue with amiodarone drip, amlodipine given radial graft, aspirin, Plavix, Lopressor. Objective - Vital Signs Vital signs: Vital Signs Temp 98.6 F 07/01/21 12:00 Pulse 86 07/01/21 12:00 Resp 25 H 07/01/21 12:00 BP 114/67 07/01/21 07:00 Pulse Ox 92 L 07/01/21 12:00 Intake & Output 06/30/21 07/01/21 07/01/21 19:59 06:59 18:59 Intake Total 1659.679 Output Total 335 Balance 1324.679 Weight Intake: IV 745 ACETAMINOPHEN IV (For NPO ) 1,000 mg In Empty Bag 1 bag @ 400 mls/hr IVPB Q6HR [facility] Rx#:[id number] Albumin Human 5% 250 ml 250 In Empty Bag 1 bag @ 250 mls/hr IVPB Q1HR PRN Rx#: [id number] CO/CI 30 Diltiazem 125 mg In 10 Sodium Chloride 0.9% 100 ml @ 5 MG/HR 5 mls/hr IV .Q24H [facility] Rx#:[id number] Lactated Ringers 1,000 ml 210 @ 20 mls/hr IV .Q24H [facility] Rx#:[id number] Magnesium Sulfate-D5w Pmx 100 1 gm In Dextrose/Water 1 100ml.bag @ 100 mls/hr IVPB Q1H [facility] Rx#: [id number] Nitroglycerin-D5w Pmx 50 mg In Dextrose/Water 1 250ml.bag @ 5 MCG/MIN 1.5 mls/hr IV .Q24H [facility] Rx#: [id number] Pressure bag 45 ceFAZolin 2 gm In Sodium 100 Chloride 0.9% 50 ml @ 100 mls/hr IVPB ONCE ONE Rx# :[id number] Intake, IV Titration 14.679 Amount Clevidipine Butyrate 25 mg In Empty Bag 1 bag @ 1 MG/HR 2 mls/hr IV .Q24H [facility] Rx#:[id number] Insulin Regular 100 unit 14.679 In Sodium Chloride 0.9% 100 ml @ Per Protocol IV .Q0M [facility] Rx#:[id number] propofoL 1,000 mg In Empty Bag 1 bag @ Titrate IV .Q0M [facility] Rx#: [id number] Oral 400 Tube Feeding 500 Output: Chest Tube Drainage 160 Chest Tube Left Pleural/ 160 Mediastinal Drainage 0 Left Wrist 0 Urine 175 Estimated Blood Loss Other: Voiding Method Indwelling Catheter ABP, PAP, CO, CI - Last Documented Arterial Blood Pressure 133/61 Pulmonary Artery Pressure 30/7 Cardiac Output 4.1 Cardiac Index 2.1 - Labs CBC & Chem 7: 07/01/21 04:09 07/01/21 04:09 Labs: Abnormal Lab Results - Last 24 Hours (Table) 06/28/21 06/30/21 06/30/21 Range/Units 15:19 16:02 17:01 WBC (3.8-10.6) k/uL RBC (4.30-5.90) m/uL Hgb (13.0-17.5) gm/dL Hct (39.0-53.0) % Neutrophils # (1.3-7.7) k/uL Lymphocytes # (1.0-4.8) k/uL ABG pO2 (83-108) mmHg ABG O2 Saturation (94-97) % Sodium (137-145) mmol/L POC Glucose (mg/dL) 197 H 191 H (75-99) mg/dL Total Protein (6.3-8.2) g/dL Crossmatch See Detail 06/30/21 06/30/21 06/30/21 Range/Units 17:05 18:00 18:57 WBC 17.5 H (3.8-10.6) k/uL RBC 4.12 L (4.30-5.90) m/uL Hgb 12.7 L (13.0-17.5) gm/dL Hct 37.3 L (39.0-53.0) % Neutrophils # 15.4 H (1.3-7.7) k/uL Lymphocytes # (1.0-4.8) k/uL ABG pO2 (83-108) mmHg ABG O2 Saturation (94-97) % Sodium (137-145) mmol/L POC Glucose (mg/dL) 220 H 191 H (75-99) mg/dL Total Protein (6.3-8.2) g/dL Crossmatch 06/30/21 06/30/21 06/30/21 Range/Units 18:59 20:07 20:10 WBC 17.6 H (3.8-10.6) k/uL RBC 4.29 L (4.30-5.90) m/uL Hgb (13.0-17.5) gm/dL Hct (39.0-53.0) % Neutrophils # 16.0 H (1.3-7.7) k/uL Lymphocytes # 0.7 L (1.0-4.8) k/uL ABG pO2 67 L (83-108) mmHg ABG O2 Saturation 93.6 L (94-97) % Sodium (137-145) mmol/L POC Glucose (mg/dL) 184 H (75-99) mg/dL Total Protein (6.3-8.2) g/dL Crossmatch 06/30/21 06/30/21 06/30/21 Range/Units 20:50 22:14 23:29 WBC (3.8-10.6) k/uL RBC (4.30-5.90) m/uL Hgb (13.0-17.5) gm/dL Hct (39.0-53.0) % Neutrophils # (1.3-7.7) k/uL Lymphocytes # (1.0-4.8) k/uL ABG pO2 (83-108) mmHg ABG O2 Saturation (94-97) % Sodium (137-145) mmol/L POC Glucose (mg/dL) 169 H 148 H 138 H (75-99) mg/dL Total Protein (6.3-8.2) g/dL Crossmatch 07/01/21 07/01/21 07/01/21 Range/Units 00:28 01:12 EST 01:34 EST WBC (3.8-10.6) k/uL RBC (4.30-5.90) m/uL Hgb (13.0-17.5) gm/dL Hct (39.0-53.0) % Neutrophils # (1.3-7.7) k/uL Lymphocytes # (1.0-4.8) k/uL ABG pO2 (83-108) mmHg ABG O2 Saturation (94-97) % Sodium (137-145) mmol/L POC Glucose (mg/dL) 120 H 109 H 131 H (75-99) mg/dL Total Protein (6.3-8.2) g/dL Crossmatch 07/01/21 07/01/21 07/01/21 Range/Units 04:09 04:09 06:30 WBC 14.1 H (3.8-10.6) k/uL RBC 4.00 L (4.30-5.90) m/uL Hgb 12.1 L (13.0-17.5) gm/dL Hct 36.1 L (39.0-53.0) % Neutrophils # 12.0 H (1.3-7.7) k/uL Lymphocytes # (1.0-4.8) k/uL ABG pO2 (83-108) mmHg ABG O2 Saturation (94-97) % Sodium 134 L (137-145) mmol/L POC Glucose (mg/dL) 109 H (75-99) mg/dL Total Protein 5.7 L (6.3-8.2) g/dL Crossmatch 07/01/21 07/01/21 07/01/21 Range/Units 07:19 08:02 08:57 WBC (3.8-10.6) k/uL RBC (4.30-5.90) m/uL Hgb (13.0-17.5) gm/dL Hct (39.0-53.0) % Neutrophils # (1.3-7.7) k/uL Lymphocytes # (1.0-4.8) k/uL ABG pO2 (83-108) mmHg ABG O2 Saturation (94-97) % Sodium (137-145) mmol/L POC Glucose (mg/dL) 121 H 126 H 125 H (75-99) mg/dL Total Protein (6.3-8.2) g/dL Crossmatch 07/01/21 07/01/21 07/01/21 Range/Units 10:12 10:56 12:09 WBC (3.8-10.6) k/uL RBC (4.30-5.90) m/uL Hgb (13.0-17.5) gm/dL Hct (39.0-53.0) % Neutrophils # (1.3-7.7) k/uL Lymphocytes # (1.0-4.8) k/uL ABG pO2 (83-108) mmHg ABG O2 Saturation (94-97) % Sodium (137-145) mmol/L POC Glucose (mg/dL) 120 H 113 H 126 H (75-99) mg/dL Total Protein (6.3-8.2) g/dL Crossmatch 07/01/21 07/01/21 Range/Units 13:05 14:14 WBC (3.8-10.6) k/uL RBC (4.30-5.90) m/uL Hgb (13.0-17.5) gm/dL Hct (39.0-53.0) % Neutrophils # (1.3-7.7) k/uL Lymphocytes # (1.0-4.8) k/uL ABG pO2 (83-108) mmHg ABG O2 Saturation (94-97) % Sodium (137-145) mmol/L POC Glucose (mg/dL) 170 H 154 H (75-99) mg/dL Total Protein (6.3-8.2) g/dL Crossmatch Microbiology - Last 24 Hours (Table) 06/29/21 14:48 Nasal Screen MRSA/MSSA - Final Nasal Swab
[2021-07-01 15:58] LABS: Glucose,Whole Blood 114 mg/dL (75-99)
[2021-07-01 17:16] LABS: Glucose,Whole Blood 170 mg/dL (75-99)
[2021-07-01] MEDS: INSULIN REGULAR 100 UNIT in SODIUM CHLORIDE 0.9% 100 ML IV SCH (17:43)
[2021-07-01 18:53] LABS: Glucose,Whole Blood 157 mg/dL (75-99)
[2021-07-01] MEDS: SENNOSIDES-DOCUSATE SODIUM 1 EACH TAB PO SCH (21:00)
[2021-07-01 21:10] LABS: Glucose,Whole Blood 129 mg/dL (75-99)
[2021-07-01 22:35] LABS: Glucose,Whole Blood 116 mg/dL (75-99)
[2021-07-02] MEDS: KETOROLAC 15 MG/ML 1 ML VIAL IVP SCH ×5 (00:04→23:46)
[2021-07-02] MEDS: HEPARIN SODIUM,PORCINE/PF 5,000 UNIT/0.5 ML SYRINGE SQ SCH ×4 (00:05→23:45)
[2021-07-02 00:10] LABS: Glucose,Whole Blood 116 mg/dL (75-99)
[2021-07-02 02:16] LABS: Glucose,Whole Blood 113 mg/dL (75-99)
[2021-07-02 04:11] LABS: Glucose,Whole Blood 118 mg/dL (75-99)
[2021-07-02 04:20] LABS: Basophils % (A) 0 %; Eosinophils % (A) 0 %; HCT 31.4 % (39.0-53.0); HGB 10.6 gm/dL (13.0-17.5); Lymphocytes # (A) 1.7 k/uL (1.0-4.8); Lymphocytes % (A) 13 %; MCH 30.8 pg (25.0-35.0); MCHC 33.7 g/dL (31.0-37.0); MCV 91.3 fL (80.0-100.0); Monocytes # (A) 0.5 k/uL (0-1.0); Monocytes % (A) 4 %; Neutrophils # (A) 10.5 k/uL (1.3-7.7); Neutrophils % (A) 81 %; Platelet Count 146 k/uL (150-450); RBC 3.44 m/uL (4.30-5.90); RDW 12.8 % (11.5-15.5)
[2021-07-02 04:26] LABS: Ionized Calcium 4.8 mg/dL (4.5-5.3)
[2021-07-02 04:36] LABS: ALT 23 U/L (4-49); AST 42 U/L (17-59); African American GFR (CKD) >90 (>60 ml/min/1.73 sqM); Albumin 3.4 g/dL (3.5-5.0); Alkaline Phosphatase 51 U/L (38-126); Anion Gap 6 mmol/L; Blood Urea Nitrogen 23 mg/dL (9-20); Calcium 8.4 mg/dL (8.4-10.2); Carbon Dioxide 25 mmol/L (22-30); Chloride 101 mmol/L (98-107); Glucose 114 mg/dL (74-99); Magnesium 2.3 mg/dL (1.6-2.3); Non-African American GFR(CKD) 87 (>60 ml/min/1.73 sqM); Potassium 4.8 mmol/L (3.5-5.1); Sodium 132 mmol/L (137-145); Total Bilirubin 0.7 mg/dL (0.2-1.3); Total Protein 5.7 g/dL (6.3-8.2)
[2021-07-02] MEDS: PANTOPRAZOLE 40 MG TABLET PO SCH (06:17)
[2021-07-02 06:30] LABS: Glucose,Whole Blood 106 mg/dL (75-99)
[2021-07-02] MEDS: METOPROLOL TARTRATE 50 MG TAB PO SCH ×2 (07:06→19:40)
[2021-07-02] MEDS: HYDROcodone/APAP 5-325MG 1 EACH TAB PO PRN ×3 (07:06→22:35)
[2021-07-02] MEDS: IPRATROPIUM-ALBUTEROL 3 ML NEB INHALATION SCH ×4 (07:17→20:47)
[2021-07-02] MEDS ORDERED: FUROSEMIDE 10 MG/ML 4 ML VIAL IV STA (08:05)
--- NOTE | 2021-07-02 08:12 | XR ---
EXAMINATION TYPE: XR chest 1V portable DATE OF EXAM: 07/02/2021 COMPARISON: Chest x-ray 07/01/2021 HISTORY: Chest tube, postop cardiac surgery TECHNIQUE: Single frontal view of the chest is obtained. FINDINGS: Left-sided chest tube, median sternal drain, right jugular central venous sheath remain in place. Central venous catheter has been removed. Patient is post median sternotomy and left atrial a ppendage clip placement. There are overlying artifacts. There is no evident pneumothorax. Right hemid iaphragm is elevated. Patchy densities are present in the perihilar and basilar regions. Interstitium is mildly prominent. Heart is thought to be enlarged, patient is rotated. IMPRESSION: Findings may represent atelectasis rather than pneumonia. Difficult to exclude volume ov erload, interstitial edema.
--- NOTE | 2021-07-02 08:17 | P.PN ---
Subjective Progress Note Date: 07/02/21 Principal diagnosis: Multivessel coronary artery disease, status post ventricular fibrillation arrest status post stress test with defibrillation 1 and CPR, with return of ROSC, m ildly impaired left ventricular systolic function with EF 40-45%. Past medical history significant for hyperlipidemia, lifetime nonsmoker and family history of heart disease including premature coronary artery disease with mother having myocardial infarction at less than 50 years old. POD #2 Off pump coronary artery bypass grafting 5 with sequential left internal mammary artery graft to mid LAD to mid LAD, left radial artery graft to obtuse marginal, saphenous vein graft to first diagonal, saphenous vein graft with patch angioplasty to posterior descending, epi-aortic ultrasonography, endov ascular vein harvest of the left greater saphenous vein, endovascular harvest the left radial artery, occlusion of the left atrial appendage with 35 mm AtriCure clip, ROWENA by anesthesia. Postoperative acute blood loss anemia, expected due to hemodilution. The patient was seen in and follow-up today 07/02/2021 at his bedside in the intensive care unit. Currently sitting up to the bedside chair, is awake, alert and oriented 3 and is in no acute distress. The patient denies any complaints of shortness of breath at this time although is complaining of some surgical type pain to his chest tube insertion sites rating his pain 9 out of 10 with taking a deep breath. He remains hemodynamically stable and is currently on no inotropic or pressor support. Oxygen saturation are 96% on 6 L nasal cannula and he is achieving 1000 mL on his incentive spirometry with encouragement. He reports he has been up ambulating in the intensive care unit hallway with minimal assistance from nursing staff this morning. Mediastinal and left pleural chest tubes remain in place to low continuous wall suction -20 cm H2O. Draining thin serosanguineous drainage with 280 mL output in the last 8 hours and 600 mL output in the last 24 hours. Bedside telemetry showing sinus tachycardia heart rate 117 bpm. He remains afebrile the last 24 hours. Laboratory results this morning show a WBC count of 13.0, hemoglobin 10.6, hematocrit 31.4, platelets 146, sodium 132, potassium 4.8, BUN 23, and creatinine 0.93. Moore catheter remains in place with 440 mL of urine output in the last 8 hours. Objective - Vital Signs Vital signs: Vital Signs Temp 98.8 F 07/02/21 04:00 Pulse 108 H 07/02/21 07:29 Resp 23 07/02/21 07:00 BP 131/71 07/02/21 07:00 Pulse Ox 92 L 07/02/21 07:00 Intake & Output 07/01/21 07/02/21 07/02/21 18:59 06:59 18:59 Intake Total 1841.097 182.725 Output Total 1190 1405 Balance 651.097 -1222.275 Weight 89.2 kg Intake: IV 917 176 Albumin Human 5% 250 ml 250 In Empty Bag 1 bag @ 250 mls/hr IVPB Q1HR [facility] Rx#: [id number] CO/CI 30 Diltiazem 125 mg In 10 Sodium Chloride 0.9% 100 ml @ 5 MG/HR 5 mls/hr IV .Q24H [facility] Rx#:[id number] Lactated Ringers 1,000 ml 340 110 @ 20 mls/hr IV .Q24H [facility] Rx#:[id number] Magnesium Sulfate-D5w Pmx 100 1 gm In Dextrose/Water 1 100ml.bag @ 100 mls/hr IVPB Q1H [facility] Rx#: [id number] Pressure bag 87 66 ceFAZolin 2 gm In Sodium 100 Chloride 0.9% 50 ml @ 100 mls/hr IVPB ONCE ONE Rx# :[id number] Intake, IV Titration 24.097 6.725 Amount Insulin Regular 100 unit 24.097 6.725 In Sodium Chloride 0.9% 100 ml @ Per Protocol IV .Q0M [facility] Rx#:[id number] Oral 400 Tube Feeding 500 Output: Chest Tube Drainage 210 310 Chest Tube Left Pleural/ 210 310 Mediastinal Drainage 0 Left Wrist 0 Urine 980 1095 Other: Voiding Method Indwelling Catheter Indwelling Catheter ABP, PAP, CO, CI - Last Documented Arterial Blood Pressure 147/46 Pulmonary Artery Pressure 30/7 Cardiac Output 4.1 Cardiac Index 2.1 - Exam CONSTITUTIONAL: Sitting up to the bedside chair in the intensive care unit, appears comfortable, cooperative, no apparent acute distress. HEENT: Neck is supple, no JVD, no lymphadenopathy. Right IJ Cordis in place and functioning. RESPIRATORY: Lungs sounds essentially clear throughout, diminished to his bilateral bases. Respirations are symmetrical and nonlabored. Currently on 6 L high flow nasal cannula with oxygen saturations 96%. Able to achieve 1000 mL on his incentive spirometry. Strong cough. CARDIOVASCULAR: Regular rhythm and tachycardic rate. S1 and S2 present, negative for S3, gallop or murmur. Sternum is stable. Palpable peripheral pulses bilaterally, no edema to his bilateral lower extremities. No calf pain or tenderness noted. Heart hugger in place with patient demonstrating appropriate use. Knee-high DYLAN hose and sequential compression devices in place to his bilateral lower extremities. Bedside telemetry showing sinus tachycardia heart rate 117 bpm. GASTROINTESTINAL: Abdomen soft, nontender, slightly distended. Active bowel sounds present 4 quadrants. Tolerating diet. Passing flatus. No guarding or rigidity. GENITOURINARY: Moore present draining clear, yellow urine. Output 440 mL in the last 8 hours INTEGUMENTARY: Skin is warm and dry with no evidence of clubbing or cyanosis. Midline sternal incision clean dry and well approximated, covered with dry intact dressing. Left lower extremity EVH sites well approximated without redness or drainage. Left arm radial artery harvest sites clean, dry and approximated. No drainage or redness is present. NEUROLOGIC: Cranial nerves II through XII intact. No focal deficits. MUSKULOSKELETAL: Able to move all extremities, strength equal bilaterally, generalized weakness. PSYCHIATRIC: Alert and oriented to person place and time, appropriate affect, intact judgment and insight. INVASIVE LINES AND TUBES: Mediastinal/left pleural chest tubes present and connected to low continuous wall suction, no air leaks present. Chest tubes with 280 mL of thin serosanguineous drainage overnight, 600 mL output in the last 24 hours. in the last 8 hours. Right IJ Cordis in place with current CVP pressure 9 mmHg. - Allied health notes Allied health notes reviewed: nursing - Labs CBC & Chem 7: 07/02/21 04:15 07/02/21 04:15 Labs: Abnormal Lab Results - Last 24 Hours (Table) 07/01/21 07/01/21 07/01/21 Range/Units 08:02 08:57 10:12 WBC (3.8-10.6) k/uL RBC (4.30-5.90) m/uL Hgb (13.0-17.5) gm/dL Hct (39.0-53.0) % Plt Count (150-450) k/uL Neutrophils # (1.3-7.7) k/uL Sodium (137-145) mmol/L BUN (9-20) mg/dL Glucose (74-99) mg/dL POC Glucose (mg/dL) 126 H 125 H 120 H (75-99) mg/dL Total Protein (6.3-8.2) g/dL Albumin (3.5-5.0) g/dL 07/01/21 07/01/21 07/01/21 Range/Units 10:56 12:09 13:05 WBC (3.8-10.6) k/uL RBC (4.30-5.90) m/uL Hgb (13.0-17.5) gm/dL Hct (39.0-53.0) % Plt Count (150-450) k/uL Neutrophils # (1.3-7.7) k/uL Sodium (137-145) mmol/L BUN (9-20) mg/dL Glucose (74-99) mg/dL POC Glucose (mg/dL) 113 H 126 H 170 H (75-99) mg/dL Total Protein (6.3-8.2) g/dL Albumin (3.5-5.0) g/dL 07/01/21 07/01/21 07/01/21 Range/Units 14:14 15:57 17:14 WBC (3.8-10.6) k/uL RBC (4.30-5.90) m/uL Hgb (13.0-17.5) gm/dL Hct (39.0-53.0) % Plt Count (150-450) k/uL Neutrophils # (1.3-7.7) k/uL Sodium (137-145) mmol/L BUN (9-20) mg/dL Glucose (74-99) mg/dL POC Glucose (mg/dL) 154 H 114 H 170 H (75-99) mg/dL Total Protein (6.3-8.2) g/dL Albumin (3.5-5.0) g/dL 07/01/21 07/01/21 07/01/21 Range/Units 18:52 21:09 22:33 WBC (3.8-10.6) k/uL RBC (4.30-5.90) m/uL Hgb (13.0-17.5) gm/dL Hct (39.0-53.0) % Plt Count (150-450) k/uL Neutrophils # (1.3-7.7) k/uL Sodium (137-145) mmol/L BUN (9-20) mg/dL Glucose (74-99) mg/dL POC Glucose (mg/dL) 157 H 129 H 116 H (75-99) mg/dL Total Protein (6.3-8.2) g/dL Albumin (3.5-5.0) g/dL 07/02/21 07/02/21 07/02/21 Range/Units 00:09 02:14 04:09 WBC (3.8-10.6) k/uL RBC (4.30-5.90) m/uL Hgb (13.0-17.5) gm/dL Hct (39.0-53.0) % Plt Count (150-450) k/uL Neutrophils # (1.3-7.7) k/uL Sodium (137-145) mmol/L BUN (9-20) mg/dL Glucose (74-99) mg/dL POC Glucose (mg/dL) 116 H 113 H 118 H (75-99) mg/dL Total Protein (6.3-8.2) g/dL Albumin (3.5-5.0) g/dL 07/02/21 07/02/21 07/02/21 Range/Units 04:15 04:15 06:29 WBC 13.0 H (3.8-10.6) k/uL RBC 3.44 L (4.30-5.90) m/uL Hgb 10.6 L (13.0-17.5) gm/dL Hct 31.4 L (39.0-53.0) % Plt Count 146 L (150-450) k/uL Neutrophils # 10.5 H (1.3-7.7) k/uL Sodium 132 L (137-145) mmol/L BUN 23 H (9-20) mg/dL Glucose 114 H (74-99) mg/dL POC Glucose (mg/dL) 106 H (75-99) mg/dL Total Protein 5.7 L (6.3-8.2) g/dL Albumin 3.4 L (3.5-5.0) g/dL - Imaging and Cardiology Chest x-ray: report reviewed, image reviewed Assessment and Plan Assessment: 1. Multivessel coronary artery disease 2. Status post ventricular fibrillation arrest, status post stress test with defibrillation 1 and CPR, with return of ROSC 3. History of hyperlipidemia 4. Lifetime nonsmoker, with a preoperative FEV1 73% of predicted 5. Family history of heart disease including premature coronary artery disease with his mother having a myocardial infarction at less than 50 years old 6. Completed Moderna vaccination for COVID-19, last dose November 2020 7. Postoperative acute blood loss anemia, expected given hemodilution Plan: 1. Continue aspirin, statin, Plavix, and beta farhat. Will increase metoprolol tartrate to 100 mg by mouth twice a day. 2. Continue amlodipine 5 mg daily at noon for radial artery spasm prophylaxis. Please do not discontinue calcium channel farhat without checking with cardiothoracic surgery service first. 3. Wean O2 as tolerated. Encourage incentive spirometry use 10 times every hour while awake. Bronchodilators per pulmonology management. 4. Increase activity, ambulate as tolerated. PT/OT/cardiac rehab following. 5. Will monitor daily labs and chest x-rays. Electrolyte replacement per protocol. 6. GI/DVT prophylaxis. 7. Insulin management per primary care service. The patient needs tight blood sugar control to prevent infection and promote sternal union. He is a nondiabetic with a preoperative hemoglobin A1c of 5.8%. 8. Pain control current medication regimen. 9. Discontinue right IJ Cordis. 10. Remove right radial arterial line. 11. Remove mediastinal chest tube, keep left pleural chest tubes for another 24 hours to low continuous wall suction -20 cm H2O. 12. Discontinue Moore. Continue to record strict accurate intake and output. Daily weights. 13. Lasix 40 mg IV 1 now. 14. Transfer orders were placed for third floor cardiac stepdown unit. 15. More recommendations to follow based on patient's clinical course. Time with Patient: Greater than 30
[2021-07-02] MEDS: ASPIRIN 325 MG TAB PO SCH (08:26)
[2021-07-02] MEDS: CLOPIDOGREL 75 MG TAB PO SCH (08:26)
[2021-07-02] MEDS: ATORVASTATIN 40 MG TAB PO SCH (08:26)
[2021-07-02 11:17] LABS: Glucose,Whole Blood 128 mg/dL (75-99)
--- NOTE | 2021-07-02 11:31 | XR ---
EXAMINATION TYPE: XR wrist limited RT DATE OF EXAM: 07/02/2021 CLINICAL HISTORY: Pain and swelling and bruising after fall injury. TECHNIQUE: Frontal and lateral images of the right wrist are obtained. COMPARISON: None FINDINGS: There is no acute displaced fracture evident in the right wrist. Moderate to severe narrow ing at base of first metacarpal. Moderate to severe triscaphe joint degenerative change. The overlyin g soft tissue appears unremarkable. IMPRESSION: As above.
[2021-07-02] MEDS ORDERED: amLODIPine 5 MG TAB PO SCH (12:00)
[2021-07-02 16:44] LABS: Glucose,Whole Blood 145 mg/dL (75-99)
--- NOTE | 2021-07-02 16:44 | P.PN ---
Subjective Progress Note Date: 07/02/21 This is a 65-year-old gentleman who had ventricular fibrillation after completion of stress test requiring defibrillation and B CPR. Patient subsequently had a cardiac cath and was found to have multivessel disease and has undergone I to coronary bypass surgery. Patient seemed to be progressing fairly well. He had five-vessel bypass surgery with the CHAN graft to the mid LAD to distal LAD, which was done sequentially, left radial artery graft to the OM branch and saphenous vein graft to the first diagonal and first vein graft with patch angioplasty to posterior descending. Overall, patient is feeling better and hoping to go home today. Denies any significant chest pain, shortness of breath or palpitations. No significant chest pain from the incision Objective - Vital Signs Vital signs: Vital Signs Temp 98.6 F 07/02/21 12:00 Pulse 90 07/02/21 15:16 Resp 13 07/02/21 15:00 BP 113/72 07/02/21 15:00 Pulse Ox 97 07/02/21 15:00 Intake & Output 07/01/21 07/02/21 07/02/21 18:59 06:59 18:59 Intake Total 1841.097 182.725 460 Output Total 1190 1405 1000 Balance 651.097 -1222.275 -540 Weight 89.2 kg 89.2 kg Intake: IV 917 176 60 Albumin Human 5% 250 ml 250 In Empty Bag 1 bag @ 250 mls/hr IVPB Q1HR PRN Rx#: [id number] CO/CI 30 Diltiazem 125 mg In 10 Sodium Chloride 0.9% 100 ml @ 5 MG/HR 5 mls/hr IV .Q24H [facility] Rx#:[id number] Lactated Ringers 1,000 ml 340 110 60 @ 20 mls/hr IV .Q24H [facility] Rx#:[id number] Magnesium Sulfate-D5w Pmx 100 1 gm In Dextrose/Water 1 100ml.bag @ 100 mls/hr IVPB Q1H [facility] Rx#: [id number] Pressure bag 87 66 ceFAZolin 2 gm In Sodium 100 Chloride 0.9% 50 ml @ 100 mls/hr IVPB ONCE ONE Rx# :[id number] Intake, IV Titration 24.097 6.725 Amount Insulin Regular 100 unit 24.097 6.725 In Sodium Chloride 0.9% 100 ml @ Per Protocol IV .Q0M [facility] Rx#:[id number] Oral 400 400 Tube Feeding 500 Output: Chest Tube Drainage 210 310 Chest Tube Left Pleural/ 210 310 Mediastinal Drainage 0 Left Wrist 0 Urine 980 1095 1000 Other: Voiding Method Indwelling Catheter Indwelling Catheter Indwelling Catheter ABP, PAP, CO, CI - Last Documented Arterial Blood Pressure 115/48 Pulmonary Artery Pressure 30/7 Cardiac Output 4.1 Cardiac Index 2.1 - Exam GENERAL EXAM: Patient is alert and oriented and doesn't appear to be in any acute distress HEENT: Normocephalic. Normal reaction of pupils, equal size, normal range of extraocular motion. No erythema or exudates in the throat. NECK: No masses, no nuchal rigidity. CHEST: Postsurgical LUNGS: Equal air entry with no crackles or wheeze. HEART: S1 and S2 normal with no audible mumurs or gallops. Regular rhythm, femorals equal on both sides.. ABDOMEN: No hepatosplenomegaly, normal bowel sounds, no guarding or rigidity. SKIN: No rashes CENTRAL NERVOUS SYSTEM: No focal deficits. EXTREMITIES: No cyanosis, clubbing or edema. - Labs CBC & Chem 7: 07/02/21 04:15 07/02/21 04:15 Labs: Abnormal Lab Results - Last 24 Hours (Table) 07/01/21 07/01/21 07/01/21 Range/Units 17:14 18:52 21:09 WBC (3.8-10.6) k/uL RBC (4.30-5.90) m/uL Hgb (13.0-17.5) gm/dL Hct (39.0-53.0) % Plt Count (150-450) k/uL Neutrophils # (1.3-7.7) k/uL Sodium (137-145) mmol/L BUN (9-20) mg/dL Glucose (74-99) mg/dL POC Glucose (mg/dL) 170 H 157 H 129 H (75-99) mg/dL Total Protein (6.3-8.2) g/dL Albumin (3.5-5.0) g/dL 07/01/21 07/02/21 07/02/21 Range/Units 22:33 00:09 02:14 WBC (3.8-10.6) k/uL RBC (4.30-5.90) m/uL Hgb (13.0-17.5) gm/dL Hct (39.0-53.0) % Plt Count (150-450) k/uL Neutrophils # (1.3-7.7) k/uL Sodium (137-145) mmol/L BUN (9-20) mg/dL Glucose (74-99) mg/dL POC Glucose (mg/dL) 116 H 116 H 113 H (75-99) mg/dL Total Protein (6.3-8.2) g/dL Albumin (3.5-5.0) g/dL 07/02/21 07/02/21 07/02/21 Range/Units 04:09 04:15 04:15 WBC 13.0 H (3.8-10.6) k/uL RBC 3.44 L (4.30-5.90) m/uL Hgb 10.6 L (13.0-17.5) gm/dL Hct 31.4 L (39.0-53.0) % Plt Count 146 L (150-450) k/uL Neutrophils # 10.5 H (1.3-7.7) k/uL Sodium 132 L (137-145) mmol/L BUN 23 H (9-20) mg/dL Glucose 114 H (74-99) mg/dL POC Glucose (mg/dL) 118 H (75-99) mg/dL Total Protein 5.7 L (6.3-8.2) g/dL Albumin 3.4 L (3.5-5.0) g/dL 07/02/21 07/02/21 Range/Units 06:29 11:15 WBC (3.8-10.6) k/uL RBC (4.30-5.90) m/uL Hgb (13.0-17.5) gm/dL Hct (39.0-53.0) % Plt Count (150-450) k/uL Neutrophils # (1.3-7.7) k/uL Sodium (137-145) mmol/L BUN (9-20) mg/dL Glucose (74-99) mg/dL POC Glucose (mg/dL) 106 H 128 H (75-99) mg/dL Total Protein (6.3-8.2) g/dL Albumin (3.5-5.0) g/dL Assessment and Plan (1) CAD in [place] artery Current Visit: Yes Status: Acute Code(s): I25.10 - ATHSCL HEART DISEASE OF [place] CORONARY ARTERY W/O ANG PCTRS SNOMED Code(s): 09148436 (2) Cardiac arrest with ventricular fibrillation Current Visit: Yes Status: Acute Code(s): I46.9 - CARDIAC ARREST, CAUSE UNSPECIFIED; I49.01 - VENTRICULAR FIBRILLATION SNOMED Code(s): 97591794 (3) Hyperlipidemia Current Visit: Yes Status: Acute Code(s): E78.5 - HYPERLIPIDEMIA, UNSPECIFIED SNOMED Code(s): 91270623 (4) Family history of ischemic heart disease Current Visit: Yes Status: Acute Code(s): Z82.49 - FAMILY HX OF ISCHEM HEART DIS AND OTH DIS OF THE CIRC SYS SNOMED Code(s): 610061807 (5) Hx of CABG Current Visit: Yes Status: Acute Code(s): Z95.1 - PRESENCE OF AORTOCORONARY BYPASS GRAFT SNOMED Code(s): 536184410 (6) S/P CABG (coronary artery bypass graft) Current Visit: Yes Status: Acute Code(s): Z95.1 - PRESENCE OF AORTOCORONARY BYPASS GRAFT SNOMED Code(s): 016145289 Plan: Patient's symptoms are progressing well. Patient is on aspirin, statin, Plavix and beta faraht. Dose of the metoprolol started was increased on the milligram twice daily. He is also on amlodipine for radial artery spasm prophylaxis. Patient may be discharged home within next 24-48 hours
[2021-07-02] MEDS: SENNOSIDES-DOCUSATE SODIUM 1 EACH TAB PO SCH (19:40)
[2021-07-02 20:05] LABS: Glucose,Whole Blood 123 mg/dL (75-99)
--- NOTE | 2021-07-03 01:20 | P.PN ---
Subjective Progress Note Date: 06/30/21 Principal diagnosis: Cardiac respiratory arrest secondary to coronary artery disease Mr. Thomas is a pleasant 65-year-old male came in after cardiac respiratory arrest and patient is found to be in V. tach this happened when when patient was having a stress test.His EKG did show sinus rhythm with the Q waves in V1 and V2 and probably ST depressions in leads 2 and V5. Patient's troponin is negative. Patient denied any symptoms at this time patient today. Patient denied any nausea vomiting chest pain. Patient underwent cardiac catheterization which showed a triple vessel disease patient, evaluated by cardiac thoracic surgery echocardiac exam showed mildly decreased EF of around 40-45%. On 06/30/2021 -patient is seen and examined in the ICU. Patient just got back after having coronary artery bypass grafting done. Patient is currently intubated and sedated. As per discussion with nursing staff no acute events reported during the procedure. Reviewing the patient's current vitals heart rate around 86, respiratory rate 21, blood pressure 143/59 saturating at 90%, still intubated on reviewing the patient's labs from this morning white count of 17.6, hemoglobin 13.1, platelets 243. INR of 1.2. ABG 7.36, PCO2 40, PO2 67 sodium 138, potassium 4.3, chloride 108, bicarb 21, BUN 16, creatinine 0.73 magnesium of 1.3. Patient medications have been reviewed Objective - Vital Signs Vital signs: Vital Signs Temp 98 F 06/30/21 04:00 Pulse 67 06/30/21 06:00 Resp 19 06/30/21 06:00 BP 147/87 06/30/21 06:00 Pulse Ox 92 L 06/30/21 06:00 Intake & Output 06/29/21 06/30/21 06/30/21 18:59 06:59 18:59 Intake Total 730 7 Output Total 350 851 Balance -350 -121 7 Weight 82.6 kg Intake: IV 7 Intake, IV Titration 250 Amount Heparin Sod,Pork in 0.45% 250 NaCl 25,000 unit In 0.45 % NaCl 1 250ml.bag @ 11. 917 UNITS/KG/HR 10 mls/hr IV .Q24H [facility] Rx#: [id number] Oral 480 Output: Urine 350 851 Other: # Voids 0 - Exam PHYSICAL EXAMINATION: GENERAL: intubated and sedated HEENT: Pupils are round and equally reacting to light. EOMI. No scleral icterus. No conjunctival pallor. Normocephalic, atraumatic. CARDIOVASCULAR: S1 and S2 present. PULMONARY: Chest is clear to auscultation,few crackles at the lung bases ABDOMEN: Soft, nontender, nondistended, normoactive bowel sounds. No palpable organomegaly. MUSCULOSKELETAL: No joint swelling or deformity. EXTREMITIES: No cyanosis, clubbing, or pedal edema. NEUROLOGICAL: sedated SKIN: No rashes. - Labs CBC & Chem 7: 07/02/21 04:15 07/02/21 04:15 Labs: Abnormal Lab Results - Last 24 Hours (Table) 06/28/21 06/29/21 06/30/21 Range/Units 15:19 11:56 04:03 APTT 53.5 H 47.2 H (22.0-30.0) sec Glucose (74-99) mg/dL Crossmatch See Detail 06/30/21 Range/Units 04:03 APTT (22.0-30.0) sec Glucose 108 H (74-99) mg/dL Crossmatch Microbiology - Last 24 Hours (Table) 06/29/21 14:48 Nasal Screen MRSA/MSSA - Preliminary Nasal Swab Assessment and Plan Assessment: ASSESSMENT Status post acute cardiac arrest secondary to V. fib during outpatient stress test requiring brief CPR s/p Mechanical ventilation for CABG Status post CABG done this afternoon Leukocytosis probably reactive Hyperlipidemia Multiple joint osteoarthritis PLAN Patient is just back from CABG, trying to be weaned off the ventilator. Hemodynamically patient is stable and chest tubes remain in place. Patient's medications have been reviewed. Further recommendations depending on the progress of the patient.
--- NOTE | 2021-07-03 01:27 | P.PN ---
Subjective Progress Note Date: 07/01/21 Principal diagnosis: Cardiac respiratory arrest secondary to coronary artery disease Mr. Thomas is a pleasant 65-year-old male came in after cardiac respiratory arrest and patient is found to be in V. tach this happened when when patient was having a stress test.His EKG did show sinus rhythm with the Q waves in V1 and V2 and probably ST depressions in leads 2 and V5. Patient's troponin is negative. Patient denied any symptoms at this time patient today. Patient denied any nausea vomiting chest pain. Patient underwent cardiac catheterization which showed a triple vessel disease patient, evaluated by cardiac thoracic surgery echocardiac exam showed mildly decreased EF of around 40-45%. On 06/30/2021 -patient is seen and examined in the ICU. Patient just got back after having coronary artery bypass grafting done. Patient is currently intubated and sedated. As per discussion with nursing staff no acute events reported during the procedure. Reviewing the patient's current vitals heart rate around 86, respiratory rate 21, blood pressure 143/59 saturating at 90%, still intubated on reviewing the patient's labs from this morning white count of 17.6, hemoglobin 13.1, platelets 243. INR of 1.2. ABG 7.36, PCO2 40, PO2 67 sodium 138, potassium 4.3, chloride 108, bicarb 21, BUN 16, creatinine 0.73 magnesium of 1.3. On 07/01/2021 patient is seen and examined at the bedside. He sitting comfortably in chair by the bedside. He still has his chest tubes in place and Moore's catheter in place. Patient complains of soreness around his chest area. He denies having any chest pain or palpitations. No cough or difficulty breat misha patient still did not have a bowel movement. On reviewing the patient's vitals heart rate around 87, respiratory rate 21, blood pressure 131/55 saturating at 94% on room air. Patient's labs have been reviewed white count of 14, hemoglobin 12.1, platelets 215. Sodium 131, potassium 4.3, chloride 103, bicarb 22, BUN 17, creatinine 0.79 LFTs within normal limits Patient medications have been reviewed Objective - Vital Signs Vital signs: Vital Signs Temp 100.6 F H 07/01/21 04:00 Pulse 75 07/01/21 10:47 Resp 18 07/01/21 10:00 BP 114/67 07/01/21 07:00 Pulse Ox 95 07/01/21 10:00 Intake & Output 06/30/21 07/01/21 07/01/21 19:59 06:59 18:59 Intake Total 1099.877 Output Total 160 Balance 939.877 Weight Intake: IV 693 ACETAMINOPHEN IV (For NPO ) 1,000 mg In Empty Bag 1 bag @ 400 mls/hr IVPB Q6HR [facility] Rx#:[id number] Albumin Human 5% 250 ml 250 In Empty Bag 1 bag @ 250 mls/hr IVPB Q1HR [facility] Rx#: [id number] CO/CI 30 Diltiazem 125 mg In 10 Sodium Chloride 0.9% 100 ml @ 5 MG/HR 5 mls/hr IV .Q24H [facility] Rx#:[id number] Lactated Ringers 1,000 ml 170 @ 20 mls/hr IV .Q24H [facility] Rx#:[id number] Magnesium Sulfate-D5w Pmx 100 1 gm In Dextrose/Water 1 100ml.bag @ 100 mls/hr IVPB Q1H [facility] Rx#: [id number] Nitroglycerin-D5w Pmx 50 mg In Dextrose/Water 1 250ml.bag @ 5 MCG/MIN 1.5 mls/hr IV .Q24H [facility] Rx#: [id number] Pressure bag 33 ceFAZolin 2 gm In Sodium 100 Chloride 0.9% 50 ml @ 100 mls/hr IVPB ONCE ONE Rx# :[id number] Intake, IV Titration 6.877 Amount Clevidipine Butyrate 25 mg In Empty Bag 1 bag @ 1 MG/HR 2 mls/hr IV .Q24H [facility] Rx#:[id number] Insulin Regular 100 unit 6.877 In Sodium Chloride 0.9% 100 ml @ Per Protocol IV .Q0M [facility] Rx#:[id number] propofoL 1,000 mg In Empty Bag 1 bag @ Titrate IV .Q0M [facility] Rx#: [id number] Oral 400 Output: Chest Tube Drainage 50 Chest Tube Left Pleural/ 50 Mediastinal Drainage 0 Left Wrist 0 Urine 110 Estimated Blood Loss Other: Voiding Method Indwelling Catheter ABP, PAP, CO, CI - Last Documented Arterial Blood Pressure 105/52 Pulmonary Artery Pressure 30/7 Cardiac Output 4.1 Cardiac Index 2.1 - Exam PHYSICAL EXAMINATION: GENERAL: sitting up in a chair by the bed side. HEENT: Pupils are round and equally reacting to light. EOMI. No scleral icterus. No conjunctival pallor. Normocephalic, atraumatic. CARDIOVASCULAR: S1 and S2 present. PULMONARY: Chest is clear to auscultation,few crackles at the lung bases ABDOMEN: Soft, nontender, nondistended, normoactive bowel sounds. No palpable organomegaly. MUSCULOSKELETAL: No joint swelling or deformity. EXTREMITIES: No cyanosis, clubbing, or pedal edema. NEUROLOGICAL: AAAX 3 , no focal deficits SKIN: No rashes. - Labs CBC & Chem 7: 07/02/21 04:15 07/02/21 04:15 Labs: Abnormal Lab Results - Last 24 Hours (Table) 06/28/21 06/30/21 06/30/21 Range/Units 15:19 08:41 10:24 WBC (3.8-10.6) k/uL RBC (4.30-5.90) m/uL Hgb (13.0-17.5) gm/dL Hct (39.0-53.0) % Neutrophils # (1.3-7.7) k/uL Lymphocytes # (1.0-4.8) k/uL INR (<1.2) ABG pO2 140 H 157 H (83-108) mmHg ABG HCO3 28 H 26 H (21-25) mmol/L ABG Total CO2 29 H 28 H (19-24) mmol/L ABG O2 Saturation 99.1 H 99.0 H (94-97) % ABG Potassium 4.6 H (3.4-4.5) mmol/L ABG Glucose 121 H (75-99) mg/dL ABG Lactic Acid (0.5-1.6) mmol/L Hemoglobin (13.0-17.5) gm/dL Sodium (137-145) mmol/L Chloride (98-107) mmol/L Carbon Dioxide (22-30) mmol/L Glucose (74-99) mg/dL POC Glucose (mg/dL) (75-99) mg/dL Magnesium (1.6-2.3) mg/dL Total Protein (6.3-8.2) g/dL Arterial Blood Potassium 4.6 H (3.4-4.5) mmol/L Arterial Blood Glucose 121 H (75-99) mg/dL Crossmatch See Detail 06/30/21 06/30/21 06/30/21 Range/Units 11:10 11:45 12:15 WBC (3.8-10.6) k/uL RBC (4.30-5.90) m/uL Hgb (13.0-17.5) gm/dL Hct (39.0-53.0) % Neutrophils # (1.3-7.7) k/uL Lymphocytes # (1.0-4.8) k/uL INR (<1.2) ABG pO2 115 H 119 H (83-108) mmHg ABG HCO3 (21-25) mmol/L ABG Total CO2 25 H 25 H 25 H (19-24) mmol/L ABG O2 Saturation 97.8 H 98.5 H 98.7 H (94-97) % ABG Potassium (3.4-4.5) mmol/L ABG Glucose 116 H 119 H 123 H (75-99) mg/dL ABG Lactic Acid 2.2 H* 2.0 H (0.5-1.6) mmol/L Hemoglobin 12.7 L 12.3 L 12.3 L (13.0-17.5) gm/dL Sodium (137-145) mmol/L Chloride (98-107) mmol/L Carbon Dioxide (22-30) mmol/L Glucose (74-99) mg/dL POC Glucose (mg/dL) (75-99) mg/dL Magnesium (1.6-2.3) mg/dL Total Protein (6.3-8.2) g/dL Arterial Blood Potassium (3.4-4.5) mmol/L Arterial Blood Glucose 116 H 119 H 123 H (75-99) mg/dL Crossmatch 06/30/21 06/30/21 06/30/21 Range/Units 13:07 14:18 14:23 WBC 12.6 H (3.8-10.6) k/uL RBC 3.88 L (4.30-5.90) m/uL Hgb 12.0 L D (13.0-17.5) gm/dL Hct 34.9 L (39.0-53.0) % Neutrophils # 10.5 H (1.3-7.7) k/uL Lymphocytes # (1.0-4.8) k/uL INR (<1.2) ABG pO2 (83-108) mmHg ABG HCO3 (21-25) mmol/L ABG Total CO2 25 H (19-24) mmol/L ABG O2 Saturation 97.2 H (94-97) % ABG Potassium (3.4-4.5) mmol/L ABG Glucose 125 H (75-99) mg/dL ABG Lactic Acid 2.0 H (0.5-1.6) mmol/L Hemoglobin 12.0 L (13.0-17.5) gm/dL Sodium (137-145) mmol/L Chloride (98-107) mmol/L Carbon Dioxide (22-30) mmol/L Glucose (74-99) mg/dL POC Glucose (mg/dL) 128 H (75-99) mg/dL Magnesium (1.6-2.3) mg/dL Total Protein (6.3-8.2) g/dL Arterial Blood Potassium (3.4-4.5) mmol/L Arterial Blood Glucose 125 H (75-99) mg/dL Crossmatch 06/30/21 06/30/21 06/30/21 Range/Units 14:23 14:23 14:30 WBC (3.8-10.6) k/uL RBC (4.30-5.90) m/uL Hgb (13.0-17.5) gm/dL Hct (39.0-53.0) % Neutrophils # (1.3-7.7) k/uL Lymphocytes # (1.0-4.8) k/uL INR 1.2 H (<1.2) ABG pO2 215 H (83-108) mmHg ABG HCO3 (21-25) mmol/L ABG Total CO2 25 H (19-24) mmol/L ABG O2 Saturation 100.0 H (94-97) % ABG Potassium (3.4-4.5) mmol/L ABG Glucose (75-99) mg/dL ABG Lactic Acid (0.5-1.6) mmol/L Hemoglobin (13.0-17.5) gm/dL Sodium (137-145) mmol/L Chloride 108 H (98-107) mmol/L Carbon Dioxide 21 L (22-30) mmol/L Glucose 130 H (74-99) mg/dL POC Glucose (mg/dL) (75-99) mg/dL Magnesium 1.3 L (1.6-2.3) mg/dL Total Protein 5.6 L (6.3-8.2) g/dL Arterial Blood Potassium (3.4-4.5) mmol/L Arterial Blood Glucose (75-99) mg/dL Crossmatch 06/30/21 06/30/21 06/30/21 Range/Units 16:02 17:01 17:05 WBC 17.5 H (3.8-10.6) k/uL RBC 4.12 L (4.30-5.90) m/uL Hgb 12.7 L (13.0-17.5) gm/dL Hct 37.3 L (39.0-53.0) % Neutrophils # 15.4 H (1.3-7.7) k/uL Lymphocytes # (1.0-4.8) k/uL INR (<1.2) ABG pO2 (83-108) mmHg ABG HCO3 (21-25) mmol/L ABG Total CO2 (19-24) mmol/L ABG O2 Saturation (94-97) % ABG Potassium (3.4-4.5) mmol/L ABG Glucose (75-99) mg/dL ABG Lactic Acid (0.5-1.6) mmol/L Hemoglobin (13.0-17.5) gm/dL Sodium (137-145) mmol/L Chloride (98-107) mmol/L Carbon Dioxide (22-30) mmol/L Glucose (74-99) mg/dL POC Glucose (mg/dL) 197 H 191 H (75-99) mg/dL Magnesium (1.6-2.3) mg/dL Total Protein (6.3-8.2) g/dL Arterial Blood Potassium (3.4-4.5) mmol/L Arterial Blood Glucose (75-99) mg/dL Crossmatch 06/30/21 06/30/21 06/30/21 Range/Units 18:00 18:57 18:59 WBC (3.8-10.6) k/uL RBC (4.30-5.90) m/uL Hgb (13.0-17.5) gm/dL Hct (39.0-53.0) % Neutrophils # (1.3-7.7) k/uL Lymphocytes # (1.0-4.8) k/uL INR (<1.2) ABG pO2 67 L (83-108) mmHg ABG HCO3 (21-25) mmol/L ABG Total CO2 (19-24) mmol/L ABG O2 Saturation 93.6 L (94-97) % ABG Potassium (3.4-4.5) mmol/L ABG Glucose (75-99) mg/dL ABG Lactic Acid (0.5-1.6) mmol/L Hemoglobin (13.0-17.5) gm/dL Sodium (137-145) mmol/L Chloride (98-107) mmol/L Carbon Dioxide (22-30) mmol/L Glucose (74-99) mg/dL POC Glucose (mg/dL) 220 H 191 H (75-99) mg/dL Magnesium (1.6-2.3) mg/dL Total Protein (6.3-8.2) g/dL Arterial Blood Potassium (3.4-4.5) mmol/L Arterial Blood Glucose (75-99) mg/dL Crossmatch 06/30/21 06/30/21 06/30/21 Range/Units 20:07 20:10 20:50 WBC 17.6 H (3.8-10.6) k/uL RBC 4.29 L (4.30-5.90) m/uL Hgb (13.0-17.5) gm/dL Hct (39.0-53.0) % Neutrophils # 16.0 H (1.3-7.7) k/uL Lymphocytes # 0.7 L (1.0-4.8) k/uL INR (<1.2) ABG pO2 (83-108) mmHg ABG HCO3 (21-25) mmol/L ABG Total CO2 (19-24) mmol/L ABG O2 Saturation (94-97) % ABG Potassium (3.4-4.5) mmol/L ABG Glucose (75-99) mg/dL ABG Lactic Acid (0.5-1.6) mmol/L Hemoglobin (13.0-17.5) gm/dL Sodium (137-145) mmol/L Chloride (98-107) mmol/L Carbon Dioxide (22-30) mmol/L Glucose (74-99) mg/dL POC Glucose (mg/dL) 184 H 169 H (75-99) mg/dL Magnesium (1.6-2.3) mg/dL Total Protein (6.3-8.2) g/dL Arterial Blood Potassium (3.4-4.5) mmol/L Arterial Blood Glucose (75-99) mg/dL Crossmatch 06/30/21 06/30/21 07/01/21 Range/Units 22:14 23:29 00:28 WBC (3.8-10.6) k/uL RBC (4.30-5.90) m/uL Hgb (13.0-17.5) gm/dL Hct (39.0-53.0) % Neutrophils # (1.3-7.7) k/uL Lymphocytes # (1.0-4.8) k/uL INR (<1.2) ABG pO2 (83-108) mmHg ABG HCO3 (21-25) mmol/L ABG Total CO2 (19-24) mmol/L ABG O2 Saturation (94-97) % ABG Potassium (3.4-4.5) mmol/L ABG Glucose (75-99) mg/dL ABG Lactic Acid (0.5-1.6) mmol/L Hemoglobin (13.0-17.5) gm/dL Sodium (137-145) mmol/L Chloride (98-107) mmol/L Carbon Dioxide (22-30) mmol/L Glucose (74-99) mg/dL POC Glucose (mg/dL) 148 H 138 H 120 H (75-99) mg/dL Magnesium (1.6-2.3) mg/dL Total Protein (6.3-8.2) g/dL Arterial Blood Potassium (3.4-4.5) mmol/L Arterial Blood Glucose (75-99) mg/dL Crossmatch 07/01/21 07/01/21 07/01/21 Range/Units 01:12 EST 01:34 EST 04:09 WBC 14.1 H (3.8-10.6) k/uL RBC 4.00 L (4.30-5.90) m/uL Hgb 12.1 L (13.0-17.5) gm/dL Hct 36.1 L (39.0-53.0) % Neutrophils # 12.0 H (1.3-7.7) k/uL Lymphocytes # (1.0-4.8) k/uL INR (<1.2) ABG pO2 (83-108) mmHg ABG HCO3 (21-25) mmol/L ABG Total CO2 (19-24) mmol/L ABG O2 Saturation (94-97) % ABG Potassium (3.4-4.5) mmol/L ABG Glucose (75-99) mg/dL ABG Lactic Acid (0.5-1.6) mmol/L Hemoglobin (13.0-17.5) gm/dL Sodium (137-145) mmol/L Chloride (98-107) mmol/L Carbon Dioxide (22-30) mmol/L Glucose (74-99) mg/dL POC Glucose (mg/dL) 109 H 131 H (75-99) mg/dL Magnesium (1.6-2.3) mg/dL Total Protein (6.3-8.2) g/dL Arterial Blood Potassium (3.4-4.5) mmol/L Arterial Blood Glucose (75-99) mg/dL Crossmatch 07/01/21 07/01/21 07/01/21 Range/Units 04:09 06:30 07:19 WBC (3.8-10.6) k/uL RBC (4.30-5.90) m/uL Hgb (13.0-17.5) gm/dL Hct (39.0-53.0) % Neutrophils # (1.3-7.7) k/uL Lymphocytes # (1.0-4.8) k/uL INR (<1.2) ABG pO2 (83-108) mmHg ABG HCO3 (21-25) mmol/L ABG Total CO2 (19-24) mmol/L ABG O2 Saturation (94-97) % ABG Potassium (3.4-4.5) mmol/L ABG Glucose (75-99) mg/dL ABG Lactic Acid (0.5-1.6) mmol/L Hemoglobin (13.0-17.5) gm/dL Sodium 134 L (137-145) mmol/L Chloride (98-107) mmol/L Carbon Dioxide (22-30) mmol/L Glucose (74-99) mg/dL POC Glucose (mg/dL) 109 H 121 H (75-99) mg/dL Magnesium (1.6-2.3) mg/dL Total Protein 5.7 L (6.3-8.2) g/dL Arterial Blood Potassium (3.4-4.5) mmol/L Arterial Blood Glucose (75-99) mg/dL Crossmatch 07/01/21 07/01/21 07/01/21 Range/Units 08:02 08:57 10:12 WBC (3.8-10.6) k/uL RBC (4.30-5.90) m/uL Hgb (13.0-17.5) gm/dL Hct (39.0-53.0) % Neutrophils # (1.3-7.7) k/uL Lymphocytes # (1.0-4.8) k/uL INR (<1.2) ABG pO2 (83-108) mmHg ABG HCO3 (21-25) mmol/L ABG Total CO2 (19-24) mmol/L ABG O2 Saturation (94-97) % ABG Potassium (3.4-4.5) mmol/L ABG Glucose (75-99) mg/dL ABG Lactic Acid (0.5-1.6) mmol/L Hemoglobin (13.0-17.5) gm/dL Sodium (137-145) mmol/L Chloride (98-107) mmol/L Carbon Dioxide (22-30) mmol/L Glucose (74-99) mg/dL POC Glucose (mg/dL) 126 H 125 H 120 H (75-99) mg/dL Magnesium (1.6-2.3) mg/dL Total Protein (6.3-8.2) g/dL Arterial Blood Potassium (3.4-4.5) mmol/L Arterial Blood Glucose (75-99) mg/dL Crossmatch Microbiology - Last 24 Hours (Table) 06/29/21 14:48 Nasal Screen MRSA/MSSA - Final Nasal Swab Assessment and Plan Assessment: ASSESSMENT Status post acute cardiac arrest secondary to V. fib during outpatient stress test requiring brief CPR s/p Mechanical ventilation for CABG and s/p extubation successfully yesterday Status post CABG done on 06/30/2021 Leukocytosis probably reactive - trending down Hyperlipidemia Multiple joint osteoarthritis PLAN s/p Extubation yesterday Hemodynamically patient is stable and chest tubes remain in place. Patient's medications have been reviewed. Further recommendations depending on the progress of the patient.
--- NOTE | 2021-07-03 01:35 | P.PN ---
Subjective Progress Note Date: 07/02/21 Principal diagnosis: Cardiac respiratory arrest secondary to coronary artery disease Mr. Thomas is a pleasant 65-year-old male came in after cardiac respiratory arrest and patient is found to be in V. tach this happened when when patient was having a stress test.His EKG did show sinus rhythm with the Q waves in V1 and V2 and probably ST depressions in leads 2 and V5. Patient's troponin is negative. Patient denied any symptoms at this time patient today. Patient denied any nausea vomiting chest pain. Patient underwent cardiac catheterization which showed a triple vessel disease patient, evaluated by cardiac thoracic surgery echocardiac exam showed mildly decreased EF of around 40-45%. On 06/30/2021 -patient is seen and examined in the ICU. Patient just got back after having coronary artery bypass grafting done. Patient is currently intubated and sedated. As per discussion with nursing staff no acute events reported during the procedure. Reviewing the patient's current vitals heart rate around 86, respiratory rate 21, blood pressure 143/59 saturating at 90%, still intubated on reviewing the patient's labs from this morning white count of 17.6, hemoglobin 13.1, platelets 243. INR of 1.2. ABG 7.36, PCO2 40, PO2 67 sodium 138, potassium 4.3, chloride 108, bicarb 21, BUN 16, creatinine 0.73 magnesium of 1.3. On 07/01/2021 patient is seen and examined at the bedside. He sitting comfortably in chair by the bedside. He still has his chest tubes in place and Moore's catheter in place. Patient complains of soreness around his chest area. He denies having any chest pain or palpitations. No cough or difficulty breat misha patient still did not have a bowel movement. On reviewing the patient's vitals heart rate around 87, respiratory rate 21, blood pressure 131/55 saturating at 94% on room air. Patient's labs have been reviewed white count of 14, hemoglobin 12.1, platelets 215. Sodium 131, potassium 4.3, chloride 103, bicarb 22, BUN 17, creatinine 0.79 LFTs within normal limits 07/02/2021 patient seen and examined at the bedside. He sitting comfortably in a chair by the bedside. Patient has been complaining of pain in the right wrist since yesterday. He still has chest soreness. Patient denies having any cough or difficulty breathing. No abdominal pain nausea vomiting or diarrhea. Patient did not have a bowel movement yet. On reviewing the patient's vitals temperature of 98.6, heart rate 81, respiratory rate 21, blood pressure 132/68 saturating at 93% on 3 L of nasal cannula. Patient labs have been reviewed white count of 13, hemoglobin 10.6, platelets 146. Sodium 132, potassium 4.8, chloride 101, bicarb 25, BUN 23, creatinine 0.93 Patient's medications have been reviewed Objective - Vital Signs Vital signs: Vital Signs Temp 98.8 F 07/02/21 04:00 Pulse 93 07/02/21 11:20 Resp 18 07/02/21 10:00 BP 131/71 07/02/21 09:00 Pulse Ox 95 07/02/21 10:00 Intake & Output 07/01/21 07/02/21 07/02/21 18:59 06:59 18:59 Intake Total 1841.097 182.725 60 Output Total 1190 1405 Balance 651.097 -1222.275 60 Weight 89.2 kg Intake: IV 917 176 60 Albumin Human 5% 250 ml 250 In Empty Bag 1 bag @ 250 mls/hr IVPB Q1HR PRN Rx#: [id number] CO/CI 30 Diltiazem 125 mg In 10 Sodium Chloride 0.9% 100 ml @ 5 MG/HR 5 mls/hr IV .Q24H [facility] Rx#:[id number] Lactated Ringers 1,000 ml 340 110 60 @ 20 mls/hr IV .Q24H [facility] TO [facility] Rx#:[id number] Magnesium Sulfate-D5w Pmx 100 1 gm In Dextrose/Water 1 100ml.bag @ 100 mls/hr IVPB Q1H [facility] Rx#: [id number] Pressure bag 87 66 ceFAZolin 2 gm In Sodium 100 Chloride 0.9% 50 ml @ 100 mls/hr IVPB ONCE ONE Rx# :[id number] Intake, IV Titration 24.097 6.725 Amount Insulin Regular 100 unit 24.097 6.725 In Sodium Chloride 0.9% 100 ml @ Per Protocol IV .Q0M [facility] Rx#:[id number] Oral 400 Tube Feeding 500 Output: Chest Tube Drainage 210 310 Chest Tube Left Pleural/ 210 310 Mediastinal Drainage 0 Left Wrist 0 Urine 980 1095 Other: Voiding Method Indwelling Catheter Indwelling Catheter Indwelling Catheter ABP, PAP, CO, CI - Last Documented Arterial Blood Pressure 115/48 Pulmonary Artery Pressure 30/7 Cardiac Output 4.1 Cardiac Index 2.1 - Exam PHYSICAL EXAMINATION: GENERAL: sitting up in a chair by the bed side. HEENT: Pupils are round and equally reacting to light. EOMI. No scleral icterus. No conjunctival pallor. Normocephalic, atraumatic. CARDIOVASCULAR: S1 and S2 present. PULMONARY: Chest is clear to auscultation,few crackles at the lung bases ABDOMEN: Soft, nontender, nondistended, normoactive bowel sounds. No palpable organomegaly. MUSCULOSKELETAL: No joint swelling or deformity. EXTREMITIES: No cyanosis, clubbing, or pedal edema. Right wrist - mild tenderness in the thenar eminence NEUROLOGICAL: AAAX 3 , no focal deficits SKIN: No rashes. - Labs CBC & Chem 7: 07/04/21 07:38 07/04/21 07:38 Labs: Abnormal Lab Results - Last 24 Hours (Table) 07/01/21 07/01/21 07/01/21 Range/Units 12:09 13:05 14:14 WBC (3.8-10.6) k/uL RBC (4.30-5.90) m/uL Hgb (13.0-17.5) gm/dL Hct (39.0-53.0) % Plt Count (150-450) k/uL Neutrophils # (1.3-7.7) k/uL Sodium (137-145) mmol/L BUN (9-20) mg/dL Glucose (74-99) mg/dL POC Glucose (mg/dL) 126 H 170 H 154 H (75-99) mg/dL Total Protein (6.3-8.2) g/dL Albumin (3.5-5.0) g/dL 07/01/21 07/01/21 07/01/21 Range/Units 15:57 17:14 18:52 WBC (3.8-10.6) k/uL RBC (4.30-5.90) m/uL Hgb (13.0-17.5) gm/dL Hct (39.0-53.0) % Plt Count (150-450) k/uL Neutrophils # (1.3-7.7) k/uL Sodium (137-145) mmol/L BUN (9-20) mg/dL Glucose (74-99) mg/dL POC Glucose (mg/dL) 114 H 170 H 157 H (75-99) mg/dL Total Protein (6.3-8.2) g/dL Albumin (3.5-5.0) g/dL 07/01/21 07/01/21 07/02/21 Range/Units 21:09 22:33 00:09 WBC (3.8-10.6) k/uL RBC (4.30-5.90) m/uL Hgb (13.0-17.5) gm/dL Hct (39.0-53.0) % Plt Count (150-450) k/uL Neutrophils # (1.3-7.7) k/uL Sodium (137-145) mmol/L BUN (9-20) mg/dL Glucose (74-99) mg/dL POC Glucose (mg/dL) 129 H 116 H 116 H (75-99) mg/dL Total Protein (6.3-8.2) g/dL Albumin (3.5-5.0) g/dL 07/02/21 07/02/21 07/02/21 Range/Units 02:14 04:09 04:15 WBC 13.0 H (3.8-10.6) k/uL RBC 3.44 L (4.30-5.90) m/uL Hgb 10.6 L (13.0-17.5) gm/dL Hct 31.4 L (39.0-53.0) % Plt Count 146 L (150-450) k/uL Neutrophils # 10.5 H (1.3-7.7) k/uL Sodium (137-145) mmol/L BUN (9-20) mg/dL Glucose (74-99) mg/dL POC Glucose (mg/dL) 113 H 118 H (75-99) mg/dL Total Protein (6.3-8.2) g/dL Albumin (3.5-5.0) g/dL 07/02/21 07/02/21 07/02/21 Range/Units 04:15 06:29 11:15 WBC (3.8-10.6) k/uL RBC (4.30-5.90) m/uL Hgb (13.0-17.5) gm/dL Hct (39.0-53.0) % Plt Count (150-450) k/uL Neutrophils # (1.3-7.7) k/uL Sodium 132 L (137-145) mmol/L BUN 23 H (9-20) mg/dL Glucose 114 H (74-99) mg/dL POC Glucose (mg/dL) 106 H 128 H (75-99) mg/dL Total Protein 5.7 L (6.3-8.2) g/dL Albumin 3.4 L (3.5-5.0) g/dL Assessment and Plan Assessment: ASSESSMENT Status post acute cardiac arrest secondary to V. fib during outpatient stress test requiring brief CPR s/p Mechanical ventilation for CABG and s/p extubation successfully yesterday Status post CABG done on 06/30/2021 Leukocytosis probably reactive - trending down Hyperlipidemia Multiple joint osteoarthritis PLAN Patient complaining of pain in the right wrist area, so we will get an x-ray of the right hand Patient still has left pleural chest tube in place Moore's catheter has been discontinued Continued on aspirin, statin, Plavix, metoprolol dose has been increased 200 mg twice daily today Continue with pulmonary toilet-incentive spirometer, breathing treatments PT OT and cardiac rehab Further recommendations depending on the progress of the patient
[2021-07-03] MEDS: HYDROcodone/APAP 5-325MG 1 EACH TAB PO PRN ×2 (03:58→23:01)
[2021-07-03 06:07] LABS: Glucose,Whole Blood 101 mg/dL (75-99)
[2021-07-03] MEDS: KETOROLAC 15 MG/ML 1 ML VIAL IVP SCH ×2 (06:19→12:53)
[2021-07-03] MEDS: PANTOPRAZOLE 40 MG TABLET PO SCH (06:19)
[2021-07-03 08:00] LABS: HCT 32.2 % (39.0-53.0); HGB 10.6 gm/dL (13.0-17.5); MCH 30.5 pg (25.0-35.0); MCV 92.4 fL (80.0-100.0); Platelet Count 187 k/uL (150-450); RBC 3.49 m/uL (4.30-5.90); WBC 11.5 k/uL (3.8-10.6)
[2021-07-03] MEDS: IPRATROPIUM-ALBUTEROL 3 ML NEB INHALATION SCH ×4 (08:32→20:15)
[2021-07-03] MEDS: ATORVASTATIN 40 MG TAB PO SCH (08:34)
[2021-07-03] MEDS: ASPIRIN 325 MG TAB PO SCH (08:34)
[2021-07-03] MEDS: DILTIAZEM CD 120 MG CAP.ER.24H PO SCH (08:34)
[2021-07-03] MEDS: HEPARIN SODIUM,PORCINE/PF 5,000 UNIT/0.5 ML SYRINGE SQ SCH ×3 (08:34→22:57)
[2021-07-03] MEDS: METOPROLOL TARTRATE 50 MG TAB PO SCH ×2 (08:34→20:23)
[2021-07-03] MEDS: CLOPIDOGREL 75 MG TAB PO SCH (08:36)
[2021-07-03 08:38] LABS: African American GFR (CKD) >90 (>60 ml/min/1.73 sqM); Anion Gap 6 mmol/L; Blood Urea Nitrogen 21 mg/dL (9-20); Calcium 8.8 mg/dL (8.4-10.2); Carbon Dioxide 27 mmol/L (22-30); Chloride 105 mmol/L (98-107); Glucose 108 mg/dL (74-99); Magnesium 2.1 mg/dL (1.6-2.3); Non-African American GFR(CKD) 89 (>60 ml/min/1.73 sqM); Potassium 4.3 mmol/L (3.5-5.1); Sodium 138 mmol/L (137-145)
--- NOTE | 2021-07-03 09:15 | XR ---
EXAMINATION TYPE: XR chest 1V portable DATE OF EXAM: 07/03/2021 COMPARISON: Chest x-ray 07/02/2021 HISTORY: Postop coronary artery bypass graft TECHNIQUE: Single frontal view of the chest is obtained. FINDINGS: Patient is post median sternotomy and left atrial appendage clip placement. Right hemidiap hragm remains elevated, patient is rotated. There is no evident pneumothorax or pleural effusion. Pat leonardo densities persist within the bilateral lungs left written right. There are overlying artifacts. L eft-sided chest tube has been removed, median sternal drain no longer seen. IMPRESSION: No evident complication status post chest tubes having been removed. Some improvement in aeration, lung volumes.
--- NOTE | 2021-07-03 09:58 | P.PN ---
Subjective Progress Note Date: 07/03/21 Principal diagnosis: Multivessel coronary artery disease, status post ventricular fibrillation arrest status post stress test with defibrillation 1 and CPR, with return of ROSC, m ildly impaired left ventricular systolic function with EF 40-45%. Past medical history significant for hyperlipidemia, lifetime nonsmoker and family history of heart disease including premature coronary artery disease with mother having myocardial infarction at less than 50 years old. POD #3 Off pump coronary artery bypass grafting 5 with sequential left internal mammary artery graft to mid LAD to mid LAD, left radial artery graft to obtuse marginal, saphenous vein graft to first diagonal, saphenous vein graft with patch angioplasty to posterior descending, epi-aortic ultrasonography, endov ascular vein harvest of the left greater saphenous vein, endovascular harvest the left radial artery, occlusion of the left atrial appendage with 35 mm AtriCure clip, ROWENA by anesthesia. Postoperative acute blood loss anemia, expected due to hemodilution. The patient was seen in and follow-up today 07/03/2021 at his bedside on the cardiac stepdown unit. Currently sitting up to the bedside chair, is awake, alert and oriented 3 and is in no acute distress. The patient denies any complaints of shortness of breath or pain at this time and reports that his pain is much better controlled now that his chest tubes have been removed. He remains hemodynamically stable and is currently on no inotropic or pressor support. The patient has been up ambulating in the cardiac stepdown unit hallway with standby assistance from nursing and therapy staff. Oxygen saturation are 94% on 3 L nasal cannula and he is achieving 1000 mL on his incentive spirometry. Remote telemetry showing sinus tachycardia heart rate 103 BPM. He remains afebrile the last 24 hours. His mediastinal and left pleural chest tubes were removed yesterday 07/02/2021 without incident. Laboratory results this morning show a WBC count of 11.5, hemoglobin 10.6, hematocrit 32.2, platelets 187, sodium 138, potassium 4.3, BUN 21, creatinine 0.91, glucose 108 and magnesium 2.1. Objective - Vital Signs Vital signs: Vital Signs Temp 98.2 F 07/03/21 04:00 Pulse 92 07/03/21 08:42 Resp 18 07/03/21 04:00 BP 131/72 07/03/21 04:00 Pulse Ox 96 07/03/21 08:34 Intake & Output 07/02/21 07/03/21 07/03/21 18:59 06:59 18:59 Intake Total 460 Output Total 1000 1320 Balance -540 -1320 Weight 89.2 kg 86.3 kg Intake: IV 60 Lactated Ringers 1,000 ml 60 @ 20 mls/hr IV .Q24H [facility] Rx#:[id number] Oral 400 Output: Urine 1000 1320 Other: Voiding Method Urinal Urinal ABP, PAP, CO, CI - Last Documented Arterial Blood Pressure 115/48 Pulmonary Artery Pressure 30/7 Cardiac Output 4.1 Cardiac Index 2.1 - Exam CONSTITUTIONAL: Sitting up to the bedside chair on the cardiac stepdown unit, appears comfortable, cooperative, no apparent acute distress. HEENT: Neck is supple, no JVD, no lymphadenopathy. RESPIRATORY: Lungs sounds essentially clear throughout, diminished to his bilateral bases. Respirations are symmetrical and nonlabored. Currently on 3 L high flow nasal cannula with oxygen saturations 94%. Able to achieve 1000 mL on his incentive spirometry. Strong cough. CARDIOVASCULAR: Regular rhythm and tachycardic rate. S1 and S2 present, negative for S3, gallop or murmur. Sternum is stable. Palpable peripheral pulses bilaterally, no edema to his bilateral lower extremities. No calf pain or tenderness noted. Heart hugger in place with patient demonstrating appropriate use. Knee-high DYLAN hose and sequential compression devices in place to his bilateral lower extremities. Remote telemetry showing sinus tachycardia heart rate 103 bpm. GASTROINTESTINAL: Abdomen soft, nontender, slightly distended. Active bowel sounds present 4 quadrants. Tolerating diet. Passing flatus. No guarding or rigidity. GENITOURINARY: Continues to void with 1.3 L of urine output in the last 8 hours. INTEGUMENTARY: Skin is warm and dry with no evidence of clubbing or cyanosis. Midline sternal incision clean dry and well approximated, covered with dry intact dressing. Left lower extremity EVH sites well approximated without redness or drainage. Left arm radial artery harvest sites clean, dry and approximated. No drainage or redness is present. NEUROLOGIC: Cranial nerves II through XII intact. No focal deficits. MUSKULOSKELETAL: Able to move all extremities, strength equal bilaterally. PSYCHIATRIC: Alert and oriented to person place and time, appropriate affect, intact judgment and insight. - Allied health notes Allied health notes reviewed: nursing - Labs CBC & Chem 7: 07/03/21 07:39 07/03/21 07:39 Labs: Abnormal Lab Results - Last 24 Hours (Table) 07/02/21 07/02/21 07/02/21 Range/Units 11:15 16:43 20:03 WBC (3.8-10.6) k/uL RBC (4.30-5.90) m/uL Hgb (13.0-17.5) gm/dL Hct (39.0-53.0) % BUN (9-20) mg/dL Glucose (74-99) mg/dL POC Glucose (mg/dL) 128 H 145 H 123 H (75-99) mg/dL 07/03/21 07/03/21 07/03/21 Range/Units 06:05 07:39 07:39 WBC 11.5 H (3.8-10.6) k/uL RBC 3.49 L (4.30-5.90) m/uL Hgb 10.6 L (13.0-17.5) gm/dL Hct 32.2 L (39.0-53.0) % BUN 21 H (9-20) mg/dL Glucose 108 H (74-99) mg/dL POC Glucose (mg/dL) 101 H (75-99) mg/dL - Imaging and Cardiology Chest x-ray: report reviewed, image reviewed Assessment and Plan Assessment: 1. Multivessel coronary artery disease, status post 5 vessel coronary artery bypass grafting surgery 2. Status post ventricular fibrillation arrest, status post stress test with defibrillation 1 and CPR, with return of ROSC 3. History of hyperlipidemia 4. Lifetime nonsmoker, with a preoperative FEV1 73% of predicted 5. Family history of heart disease including premature coronary artery disease with his mother having a myocardial infarction at less than 50 years old 6. Completed Moderna vaccination for COVID-19, last dose November 2020 7. Postoperative acute blood loss anemia, expected given hemodilution Plan: 1. Continue aspirin, statin, Plavix, and beta farhat. Will increase metoprolol tartrate as tolerated. 2. Discontinue amlodipine 5 mg daily at noon for radial artery spasm prophylaxis and start Cardizem CD 120 mg by mouth daily. Please do not discontinue calcium channel farhat without checking with cardiothoracic surgery service first. 3. Wean O2 as tolerated. Encourage incentive spirometry use 10 times every hour while awake. Bronchodilators per pulmonology management. 4. Increase activity, ambulate as tolerated. PT/OT/cardiac rehab following. 5. Will monitor daily labs and chest x-rays. Electrolyte replacement per protocol. 6. GI/DVT prophylaxis. 7. Insulin management per primary care service. The patient needs tight blood sugar control to prevent infection and promote sternal union. He is a nondiabetic with a preoperative hemoglobin A1c of 5.8%. 8. Pain control current medication regimen. 9. Mediastinal and left pleural chest tubes were removed yesterday 07/02/2021 without incident. 10. Continue to record strict accurate intake and output. Daily weights. 11. No diuretics today. 12. Discharge planning is in place, anticipate discharge home with home health care in the next 24-48 hours. 13. More recommendations follow based on patient's clinical course. Time with Patient: Greater than 30
[2021-07-03 12:15] LABS: Glucose,Whole Blood 108 mg/dL (75-99)
--- NOTE | 2021-07-03 12:46 | P.PN ---
Subjective Progress Note Date: 07/03/21 Patient is pleasant 65-year-old male with a history of hyperlipidemia family history of coronary artery disease chest pains who presented approximately one month ago to our cardiology office to be evaluated for episodes where he will feel fine for most the day and then have a 5-10 minute "spell" where he will feel short of breath and had chest tightness. These would normally only occur approximately once a week however were increasing in frequency. He also has been having some episodes of chest tightness if he overdoes things such as mowing the grass for the last few years. He therefore underwent workup with a treadmill stress test earlier today in the office. 3 minutes into recovery he was sitting in a chair and started to have ST downsloping noted in the inferior leads and then 6 minutes into recovery had a ventricular fibrillation arrest. Patient underwent CPR and then defibrillation and was then transferred to [facility]. Patient seen and examined in emergency department. Patient states that since that time he denies any chest pain or pressure, no shortness breath. He is feeling somewhat nauseous however improving. EKG shows normal sinus rhythm, Q waves V1 and V2, no significant ST depressions or T-wave abnormalities. Blood work shows white blood cell count 10.1, hemoglobin 15.4, d-dimer 1.0, BUN 17, creatinine 0.8, glucose 131, initial troponin less than 0.012. No current chest pain or pressure, feels well. 06/28 Patient seen and examined. Patient denies any chest pain or pressure. He underwent heart catheterization yesterday which showed multivessel disease. Being evaluated for CABG. He describes mild congestion no orthopnea. 06/29 Patient seen and examined. Patient denies any chest pain or pressure. Blood pressures at been well controlled. No significant events on telemetry. 07/01 Continue examined. Patient underwent CABG yesterday. States he is feeling fairly well today. Does have some back discomfort and pain around the incision however no significant chest discomfort. Did have some pain around the chest tube site however feels better today. Sitting up in a chair. He was able to cough up some mucus. 07/02/21 This is a 65-year-old gentleman who had ventricular fibrillation after completion of stress test requiring defibrillation and B CPR. Patient subsequently had a cardiac cath and was found to have multivessel disease and has undergone I to coronary bypass surgery. Patient seemed to be progressing fairly well. He had five-vessel bypass surgery with the CHAN graft to the mid LAD to distal LAD, which was done sequentially, left radial artery graft to the OM branch and saphenous vein graft to the first diagonal and first vein graft with patch angioplasty to posterior descending. Overall, patient is feeling better and hoping to go home today. Denies any significant chest pain, shortness of breath or palpitations. No significant chest pain from the incision 07/03/2021 Patient examined this morning sitting up in the chair. He denies chest pain or pressure. Denies SOB. He remains on 3L NC. Pulling 1250cc on his incentive spirometer. PHYSICAL EXAM: VITAL SIGNS: Reviewed. GENERAL: Well-developed in no acute distress. HEENT: Head is normocephalic. Pupils are equal, round. Sclerae anicteric. Mucous membranes of the mouth are moist. Neck supple. No JVD or thyromegaly LUNGS: Respirations even and unlabored. Lungs diminished bilaterally. HEART: Regular rate and rhythm. S1 and S2 heard. Heart hugger noted. ABDOMEN: Soft. Nondistended. Nontender. EXTREMITIES: Normal range of motion. No clubbing or cyanosis. Peripheral pulses intact. Trace bilateral edema. NEUROLOGIC: Awake and alert. Oriented x 3. ASSESSMENT: 1. Status post cardiac arrest/Ventricular fibrillation during stress test 2. CAD s/p CABG 3. Hyperlipidemia 4. Elevated d-dimer, do not suspect PE given clinical scenario PLAN: Continue postoperative management per CTS Wean oxygen as tolerated Increase activity as tolerated Encourage use of incentive spirometer Possible discharge home tomorrow Nurse practitioner note has been reviewed by physician. Signing provider agrees with the documented findings, assessment, and plan of care. Objective - Vital Signs Vital signs: Vital Signs Temp 97.4 F L 07/03/21 08:00 Pulse 84 07/03/21 12:00 Resp 18 07/03/21 04:00 BP 122/69 07/03/21 12:00 Pulse Ox 95 07/03/21 12:00 Intake & Output 07/02/21 07/03/21 07/03/21 18:59 06:59 18:59 Intake Total 460 Output Total 1000 1320 400 Balance -540 -1320 -400 Weight 89.2 kg 86.3 kg Intake: IV 60 Lactated Ringers 1,000 ml 60 @ 20 mls/hr IV .Q24H [facility] Rx#:[id number] Oral 400 Output: Urine 1000 1320 400 Other: Voiding Method Urinal Urinal Urinal ABP, PAP, CO, CI - Last Documented Arterial Blood Pressure 115/48 Pulmonary Artery Pressure 30/7 Cardiac Output 4.1 Cardiac Index 2.1 - Labs CBC & Chem 7: 07/03/21 07:39 07/03/21 07:39 Labs: Abnormal Lab Results - Last 24 Hours (Table) 07/02/21 07/02/21 07/03/21 Range/Units 16:43 20:03 06:05 WBC (3.8-10.6) k/uL RBC (4.30-5.90) m/uL Hgb (13.0-17.5) gm/dL Hct (39.0-53.0) % BUN (9-20) mg/dL Glucose (74-99) mg/dL POC Glucose (mg/dL) 145 H 123 H 101 H (75-99) mg/dL 07/03/21 07/03/21 07/03/21 Range/Units 07:39 07:39 12:03 WBC 11.5 H (3.8-10.6) k/uL RBC 3.49 L (4.30-5.90) m/uL Hgb 10.6 L (13.0-17.5) gm/dL Hct 32.2 L (39.0-53.0) % BUN 21 H (9-20) mg/dL Glucose 108 H (74-99) mg/dL POC Glucose (mg/dL) 108 H (75-99) mg/dL
--- NOTE | 2021-07-03 16:08 | P.PN ---
Subjective Progress Note Date: 07/03/21 Cardiac respiratory arrest secondary to coronary artery disease Mr. Thomas is a pleasant 65-year-old male came in after cardiac respiratory arrest and patient is found to be in V. tach this happened when when patient was having a stress test.His EKG did show sinus rhythm with the Q waves in V1 and V2 and probably ST depressions in leads 2 and V5. Patient's troponin is negative. Patient denied any symptoms at this time patient today. Patient denied any nausea vomiting chest pain. Patient underwent cardiac catheterization which showed a triple vessel disease patient, evaluated by cardiac thoracic surgery echocardiac exam showed mildly decreased EF of around 40-45%. On 06/30/2021 -patient is seen and examined in the ICU. Patient just got back after having coronary artery bypass grafting done. Patient is currently intubated and sedated. As per discussion with nursing staff no acute events reported during the procedure. Reviewing the patient's current vitals heart rate around 86, respiratory rate 21, blood pressure 143/59 saturating at 90%, still intubated on reviewing the patient's labs from this morning white count of 17.6, hemoglobin 13.1, platelets 243. INR of 1.2. ABG 7.36, PCO2 40, PO2 67 sodium 138, potassium 4.3, chloride 108, bicarb 21, BUN 16, creatinine 0.73 magnesium of 1.3. On 07/01/2021 patient is seen and examined at the bedside. He sitting comfortably in chair by the bedside. He still has his chest tubes in place and Moore's catheter in place. Patient complains of soreness around his chest area. He denies having any chest pain or palpitations. No cough or difficulty breathing patient still did not have a bowel movement. On reviewing the patient's vitals heart rate around 87, respiratory rate 21, blood pressure 131/55 saturating at 94% on room air. Patient's labs have been reviewed white count of 14, hemoglobin 12.1, platelets 215. Sodium 131, potassium 4.3, chloride 103, bicarb 22, BUN 17, creatinine 0.79 LFTs within normal limits 07/02/2021 patient seen and examined at the bedside. He sitting comfortably in a chair by the bedside. Patient has been complaining of pain in the right wrist since yesterday. He still has chest soreness. Patient denies having any cough or difficulty breathing. No abdominal pain nausea vomiting or diarrhea. Patient did not have a bowel movement yet. On reviewing the patient's vitals temperature of 98.6, heart rate 81, respiratory rate 21, blood pressure 132/68 saturating at 93% on 3 L of nasal cannula. Patient labs have been reviewed white count of 13, hemoglobin 10.6, platelets 146. Sodium 132, potassium 4.8, chloride 101, bicarb 25, BUN 23, creatinine 0.93 07/03/2021 Patient is seen and evaluated in follow-up and being closely monitored. Cardiothoracic and cardiology following closely. Family members at the bedside during examination today. Patient is sitting up in the chair with lower extremities elevated and heart hugger noted. Chest x-ray today shows no evident complication status post chest tubes being removed with some improvement in aeration in lung volumes and no evidence of pneumothorax or pleural effusion noted. Incentive spirometer at the bedside and recommended and encourage the patient to continue using at least 10 times every hour while awake even in the outpatient setting. Labs: White blood count is 11.5, hemoglobin is 10.6, platelets are 187, sodium is 138, potassium is 4.3, creatinine is 0.91, magnesium is 2.1 Review of systems: Constitutional: No reports of fatigue, fever, or chills Cardiovascular: No reports of chest pain or palpitations Respiratory: No reports of shortness of breath or cough GI: No reports of nausea, vomiting, or diarrhea : No reports of dysuria or retention Neurovascular: No reports of weakness or numbness All medications have been reviewed Active Medications Hydrocodone Bitart/Acetaminophen (Hydrocodone/Apap 5-325mg 1 Each Tab) 2 each PO Q4HR PRN PRN Reason: Severe Pain Last Admin: 07/02/21 07:06 Dose: 1 each Documented by: Hydrocodone Bitart/Acetaminophen (Hydrocodone/Apap 5-325mg 1 Each Tab) 1 each PO Q4HR PRN PRN Reason: Moderate Pain Last Admin: 07/03/21 03:58 Dose: 1 each Documented by: Albuterol/Ipratropium (Ipratropium-Albuterol 3 Ml Neb) 3 ml INHALATION RT-Q2H P RN PRN Reason: Shortness Of Breath Or Wheezing Albuterol/Ipratropium (Ipratropium-Albuterol 3 Ml Neb) 3 ml INHALATION RT-QID [facility] Last Admin: 07/03/21 11:22 Dose: 3 ml Documented by: Aspirin (Aspirin 325 Mg Tab) 325 mg PO DAILY [facility] Last Admin: 07/03/21 08:34 Dose: 325 mg Documented by: Atorvastatin Calcium (Atorvastatin 40 Mg Tab) 40 mg PO DAILY [facility] Last Admin: 07/03/21 08:34 Dose: 40 mg Documented by: Bisacodyl (Bisacodyl 10 Mg Supp) 10 mg RECTAL DAILY PRN PRN Reason: Constipation Clopidogrel Bisulfate (Clopidogrel 75 Mg Tab) 75 mg PO DAILY [facility] Last Admin: 07/03/21 08:36 Dose: 75 mg Documented by: Diltiazem HCl (Diltiazem Cd 120 Mg Cap.Er.24h) 120 mg PO DAILY [facility] Last Admin: 07/03/21 08:34 Dose: 120 mg Documented by: Heparin Sodium (Porcine) (Heparin Sodium,Porcine/Pf 5,000 Unit/0.5 Ml Syringe) 5,000 unit SQ Q8HR [facility] Last Admin: 07/03/21 08:34 Dose: 5,000 unit Documented by: Amiodarone HCl 150 mg/ (Dextrose/Water) 103 mls @ 618 mls/hr IV .Q10M PRN; Pro tocol PRN Reason: A.FIB/FLUTTER Amiodarone HCl 360 mg/ (Dextrose/Water) 207.2 mls @ 34.533 mls/hr IV .Q6H PRN; Protocol PRN Reason: A.FIB/FLUTTER Amiodarone HCl 450 mg/ (Dextrose/Water) 250 mls @ 16.667 mls/hr IV .Q15H PRN; Protocol PRN Reason: A.FIB/FLUTTER Calcium Gluconate 2 gm/ Sodium (Chloride) 120 mls @ 100 mls/hr IVPB ONCE PRN PRN Reason: Ionized Calcium less than 4.4 Stop: 07/24/21 13:51 Magnesium Hydroxide (Magnesium Hydroxide 2,400 Mg/10 Ml Cup) 2,400 mg PO BID PRN PRN Reason: Constipation Metoclopramide HCl (Metoclopramide 5 Mg/Ml 2 Ml Vial) 10 mg IVP Q4H PRN PRN Reason: Nausea And Vomiting Metoprolol Tartrate (Metoprolol Tartrate 50 Mg Tab) 100 mg PO BID [facility] Last Admin: 07/03/21 08:34 Dose: 100 mg Documented by: Miscellaneous Information (Potassium Replacement Protocol 1 Each Misc) 1 each MISCELLANE DAILY PRN; Protocol PRN Reason: Per Protocol Miscellaneous Information (Magnesium Replacement Protocol 1 Each Misc) 1 each MISCELLANE DAILY PRN; Protocol PRN Reason: Per Protocol Miscellaneous Information (Phosphorus Replacement Protoco 1 Each Misc) 1 each MISCELLANE DAILY PRN; Protocol PRN Reason: Per Protocol Ondansetron HCl (Ondansetron 4 Mg/2 Ml Vial) 4 mg IVP Q6HR PRN PRN Reason: Nausea And Vomiting Pantoprazole Sodium (Pantoprazole 40 Mg Tablet) 40 mg PO AC-BRKFST [facility] Last Admin: 07/03/21 06:19 Dose: 40 mg Documented by: Senna/Docusate Sodium (Sennosides-Docusate Sodium 1 Each Tab) 2 each PO HS [facility] Last Admin: 07/02/21 19:40 Dose: 2 each Documented by: Sodium Chloride (Sodium Chloride 0.9% Flush 10 Ml Syringe) 10 ml IV BID [facility] Last Admin: 07/03/21 08:41 Dose: 10 ml Documented by: Physical exam: GENERAL: sitting up in a chair, awake, alert and oriented 3, well-developed, well-nourished. Temp is 97.4F, pulse is 101, blood pressure is 116/71, oxygen saturation is 96% on 3 L via nasal cannula HEENT: Pupils are round and equally reacting to light. EOMI. No scleral icterus. No conjunctival pallor. Normocephalic, atraumatic. CARDIOVASCULAR: S1 and S2 muffled PULMONARY: Diminished breath sounds bilaterally with a few scattered crackles noted at the bases ABDOMEN: Soft, nontender, nondistended, normoactive bowel sounds. No palpable organomegaly. MUSCULOSKELETAL: No joint swelling or deformity. EXTREMITIES: No cyanosis, clubbing, or pedal edema. Right wrist - mild tenderness in the thenar eminence NEUROLOGICAL: AAAX 3 , no focal deficits SKIN: No rashes. Assessment: Status post acute cardiac arrest secondary to V. fib during outpatient stress test requiring brief CPR s/p Mechanical ventilation for CABG and s/p extubation Status post CABG done on 06/30/2021 Leukocytosis probably reactive Hyperlipidemia Multiple joint osteoarthritis GI prophylaxis DVT prophylaxis Full code PLAN: Recommend to continue with current medications, management, and symptomatic treatment. Cardio thoracic along with cardiology following with anticipation of possible discharge in 24 hours. Patient continues on high-dose oral steroids and will continue. Incentive spirometer at the bedside and encourage the patient to continue using at least 10 times every hour while awake and encouraged increase activity as tolerated. PT/OT to evaluate the patient. Recommend continue with breathing inhalational treatments as well and discussed with nursing staff about weaning FiO2 as tolerated. Patient had some right wrist pain and an x-ray was done showing no acute displaced fracture evident in the right wrist with moderate to severe narrowing at the base of the first metacarpal with moderate to severe triscaphe joint degenerative changes and overlying soft tissue appears unremarkable. Will add wrist splint for support. Due to multiple complex medical issues, prognosis is guarded. Further recommendations to follow based on the clinical course of the patient. Possible discharge in 24-48 hours. Objective - Vital Signs Vital signs: Vital Signs Temp 97.4 F L 07/03/21 08:00 Pulse 92 07/03/21 08:42 Resp 18 07/03/21 04:00 BP 116/71 07/03/21 08:00 Pulse Ox 96 07/03/21 08:34 Intake & Output 07/02/21 07/03/21 07/03/21 18:59 06:59 18:59 Intake Total 460 Output Total 1000 1320 Balance -540 -1320 Weight 89.2 kg 86.3 kg Intake: IV 60 Lactated Ringers 1,000 ml 60 @ 20 mls/hr IV .Q24H [facility] Rx#:[id number] Oral 400 Output: Urine 1000 1320 Other: Voiding Method Urinal Urinal Urinal ABP, PAP, CO, CI - Last Documented Arterial Blood Pressure 115/48 Pulmonary Artery Pressure 30/7 Cardiac Output 4.1 Cardiac Index 2.1 - Labs CBC & Chem 7: 07/03/21 07:39 07/03/21 07:39 Labs: Abnormal Lab Results - Last 24 Hours (Table) 07/02/21 07/02/21 07/02/21 Range/Units 11:15 16:43 20:03 WBC (3.8-10.6) k/uL RBC (4.30-5.90) m/uL Hgb (13.0-17.5) gm/dL Hct (39.0-53.0) % BUN (9-20) mg/dL Glucose (74-99) mg/dL POC Glucose (mg/dL) 128 H 145 H 123 H (75-99) mg/dL 07/03/21 07/03/21 07/03/21 Range/Units 06:05 07:39 07:39 WBC 11.5 H (3.8-10.6) k/uL RBC 3.49 L (4.30-5.90) m/uL Hgb 10.6 L (13.0-17.5) gm/dL Hct 32.2 L (39.0-53.0) % BUN 21 H (9-20) mg/dL Glucose 108 H (74-99) mg/dL POC Glucose (mg/dL) 101 H (75-99) mg/dL
[2021-07-03 16:34] LABS: Glucose,Whole Blood 126 mg/dL (75-99)
--- NOTE | 2021-07-03 17:11 | P.PN ---
Subjective Progress Note Date: 07/03/21 Principal diagnosis: Acute cardiac arrest This is a 65-year-old male patient of Dr. Pimentel, with past medical history of hyperlipidemia, osteoarthritis, patient is a nonsmoker, who was getting a cardiac workup which also included a stress test at the [facility] today. Patient was wearing a heart monitor for the last month because of episodes of exertional dyspnea, however at the time of his stress test the monitor was off. During his stress test patient went into ventricular fibrillation cardiac arrest. CPR was started for 1-1/2 minutes when the EEG was applied and a shock was delivered and patient was back in sinus rhythm. He regained consciousness immediately he was given 150 mg of IV push amiodarone, transported by EMS to the emergency department for further evaluation and management. Patient is awake and alert in the emergency department, complaining of some soreness to his chest, and nausea. EKG was obtained showing sinus mechanism with first-degree AV block and a rate of 73 BPM. He has evidence of Q wave in the leads 3 and aVF, and leads V2, V3. Cardiology is on the case, and evaluating the patient in the emergency department. Chest x-ray was obtained showing heart upper limits of normal in size, no acute cardiopulmonary process. Patient is breathing comfortably, he is on 2 L of oxygen pulse ox is 100%, afebrile, blood pressure is 147/89. She labs have been reviewed, CBC was within normal limits with white blood cell count of 10.1, hemoglobin of 15.4, with a count is 261, d-dimer was 1.08, coagulation profile was within normal limits, electrolytes and renal profile were unremarkable, first troponin was less than 0.012, TSH was 3.040. Patient is on point tenderness a ramy at 20 ML per hour, he is currently on amiodarone infusion at 1 mg/m, and heparin infusion per weight-based protocol, he was given Lipitor 80 mg. His home dose 81 mg aspirin, Toprol-XL has been restarted. Echocardiogram is pending, COVID-19 PCR is pending. Admission to the intensive care unit was requested, patient is currently awaiting a bed in the ICU. On 06/28/2021 patient seen in follow-up in intensive care unit. He is currently having a 2-D echo completed. She is resting comfortably in bed, denies any chest pain or shortness of breath, her pulse ox is 93-94%, afebrile, hemodynamically patient is stable. Patient is currently on amiodarone infusion at 0.5 mg/h, and heparin infusion per weight-based protocol, he was taken to the [facility] last night for cardiac catheterization which revealed multivessel coronary artery disease including 80% proximal LAD stenosis, 100% proximal to mid LAD with left to left collaterals, and 95% moderate diagonal 1, 95% moderate to large caliber OM1 and 95%, distal circumflex. His LVEDP was 11. CT surgery has been consulted for coronary artery revascularization surgery. Patient was seen by CT surgery, and is currently undergoing preop evaluation. No acute events overnight. No episodes of arrhythmia's. Today's labs have been reviewed, white blood cell count is 9, hemoglobin is 14.7, electrolytes and renal profile were within normal limits. On 06/29/2021 patient seen in follow-up in intensive care unit, he is awake and alert, in no acute distress, his resting comfortably in bed, he denies any specific complaints, no compressive chest pain, no difficulty breathing, repair pulse ox is 93%, vital signs have been stable no fever or chills. Today's labs have been reviewed, CBC is within normal limits, white blood, 0.7, hemoglobin is 15.1, patient remains on heparin infusion, his PTT is a 69.7, electrolytes and renal profile were unremarkable, patient had a bedside PFT which showed FEV1 of 2.56 L or 73% of predicted and FVC of 2.96 L or 63% of predicted with an FEV1 to FVC ratio of 115%, MVV was 96, this was consistent with mild restriction. And based on his PFT patient is considered to be no increased operative risk. Surgery is scheduled for tomorrow. No other events overnight. Please in sinus mechanism, no arrhythmias overnight, he is on Toprol-XL at 25 mg daily, aspirin, Lipitor 40 mg daily. On 07/01/2021 patient seen in follow-up in intensive care unit, today is postoperative day #1, status post five-vessel coronary artery bypass grafting, with sequential CHAN to mid LAD, left radial artery graft to obtuse marginal, SVG to the first diagonal, SVG with patchy angioplasty to PDA, appendectomy aortic ultrasonography, endovascular vein harvest of the left greater saphenous vein, and left radial artery, and left atrial appendage exclusion. Patient is doing very well, he was extubated within 6 hours of OR exit time, he is awake, in no acute distress, he is on 6 L of oxygen, sitting up in the recliner, he is on lactated Ringer's at a rate of 40 per hour, insulin infusion at 2.5 units per hour. Doing well, hemodynamically he is stable, he is in sinus mechanism with a rate of 81, cardiac output was 4.1 and cardiac index is 2.1, not on any vasop ressor support blood pressures 125/44. Today's chest x-ray shows atelectasis at the lung bases, no pneumothorax. Patient has a mediastinal and left pleural chest tube in place with a total of 700 mL of thin serosanguineous output in the last 24 hours. Patient is on 6 L of oxygen pulse ox is 96%. His incentive spirometry effort is 750-1000 ML. His pain is reasonably well controlled. Today's labs have been reviewed, his white blood cell count is 14.1, hemoglobin is 12.1, sodium is 134, direct electrolytes and renal profile are unremarkable. LFTs are within normal limits. Patient isn't breathing treatments, breathing fairly comfortably, slightly congested cough. He is tolerating clear liquid diet. On 07/03/2021 patient seen in follow-up on selective care unit, he is awake and alert, in no acute distress, he is currently on 2 L of oxygen, breathing comfortably, today is postoperative day #3, status post five-vessel coronary artery bypass grafting. Patient was transferred out of intensive care unit yesterday, remain stable, she is on 2 L of oxygen currently and his pulse ox is 96%, today's chest x-ray has been reviewed, showing some improvement in aeration in lung volumes after a dose of diuretic was given by CT surgery yesterday. All chest tubes have been discontinued, Moore catheter has been discontinued, patient is in sinus mechanism, vital signs have been stable. Today's labs have been reviewed, white blood cell count is 11.5, hemoglobin is 10.6, electrolytes and renal profile has been unremarkable. Patient has been working on incentive spirometer, achieving 1 L on the today, lung sounds reveal some mild crackles at the left base, no wheezing, rhonchi, Objective - Vital Signs Vital signs: Vital Signs Temp 97.4 F L 07/03/21 08:00 Pulse 87 07/03/21 16:00 Resp 18 07/03/21 04:00 BP 119/64 07/03/21 16:00 Pulse Ox 96 07/03/21 16:00 Intake & Output 07/02/21 07/03/21 07/03/21 18:59 06:59 18:59 Intake Total 460 Output Total 1000 1320 700 Balance -540 -1320 -700 Weight 89.2 kg 86.3 kg Intake: IV 60 Lactated Ringers 1,000 ml 60 @ 20 mls/hr IV .Q24H [facility] Rx#:[id number] Oral 400 Output: Urine 1000 1320 700 Other: Voiding Method Urinal Urinal Urinal ABP, PAP, CO, CI - Last Documented Arterial Blood Pressure 115/48 Pulmonary Artery Pressure 30/7 Cardiac Output 4.1 Cardiac Index 2.1 - Exam GENERAL EXAM: Alert, very pleasant, 65-year-old white male, 2 L of oxygen a pulse ox of 96%, sitting up in a recliner, in no acute distress HEAD: Normocephalic/atraumatic. EYES: Normal reaction of pupils, equal size. Conjunctiva pink, sclera white. NOSE: Clear with pink turbinates. THROAT: No erythema or exudates. NECK: No masses, no JVD, no thyroid enlargement, no adenopathy. CHEST: No chest wall deformity. Symmetrical expansion. Midsternal incision is clean dry and intact, chest tube site with mediastinal and left pleural chest tube clean dry and intact, chest tube is connected to Pleur-evac, and wall suction, with a total of 700 mL of thin serosanguineous output, no air leak LUNGS: Equal air entry with no crackles, wheeze, rhonchi or dullness. CVS: Regular rate and rhythm, normal S1 and S2, no gallops, no murmurs, no rubs ABDOMEN: Soft, nontender. No hepatosplenomegaly, normal bowel sounds, no guarding or rigidity. EXTREMITIES: No clubbing, no edema, no cyanosis, 2+ pulses and upper and lower extremities. Left radial arterial graft site clean dry and intact, AAKASH drain is compressed and draining small amount of sanguinous output. Left popliteal area, and left lower leg saphenous vein graft harvest site incisions clean dry and intact, bilateral lower extremities are Demetrio wrapped, and SCDs are in place MUSCULOSKELETAL: Muscle strength and tone normal. SPINE: No scoliosis or deformity SKIN: No rashes CENTRAL NERVOUS SYSTEM: Alert and oriented -3. No focal deficits, tone is normal in all 4 extremities. PSYCHIATRIC: Alert and oriented -3. Appropriate affect. Intact judgment and insight. - Labs CBC & Chem 7: 07/03/21 07:39 07/03/21 07:39 Labs: Abnormal Lab Results - Last 24 Hours (Table) 07/02/21 07/03/21 07/03/21 Range/Units 20:03 06:05 07:39 WBC 11.5 H (3.8-10.6) k/uL RBC 3.49 L (4.30-5.90) m/uL Hgb 10.6 L (13.0-17.5) gm/dL Hct 32.2 L (39.0-53.0) % BUN (9-20) mg/dL Glucose (74-99) mg/dL POC Glucose (mg/dL) 123 H 101 H (75-99) mg/dL 07/03/21 07/03/21 07/03/21 Range/Units 07:39 12:03 16:32 WBC (3.8-10.6) k/uL RBC (4.30-5.90) m/uL Hgb (13.0-17.5) gm/dL Hct (39.0-53.0) % BUN 21 H (9-20) mg/dL Glucose 108 H (74-99) mg/dL POC Glucose (mg/dL) 108 H 126 H (75-99) mg/dL Assessment and Plan Plan: Assessment: #1. Multivessel coronary artery disease, with episode of acute cardiac arrest related to ventricular fibrillation during an outpatient stress test, requiring brief CPR, and defibrillation and return of spontaneous circulation #2. Status post 5 vessel off-pump coronary artery bypass grafting surgery, with CHAN to the mid LAD, left radial artery graft to obtuse marginal, SVG to the first diagonal, SVG to PDA, and aortic ultrasonography, endovascular vein moreno rvest of the left greater saphenous vein and left radial artery, and left atrial appendage exclusion with the 35mm AtriCure clip on 06/30/2021, today is postoperative day #3 #3. Routine postoperative ventilator management, patient was successfully weaned and extubated on postoperative day #0, within 6 hours of operating room exit time #4. Leukocytosis possibly reactive #6. Hyperlipidemia #7. Osteoarthritis #8. Nonsmoker, pre-op FEV of 2.56 L or 73% of predicted and FVC of 2.96 L or 63% of predicted with an FEV1 to FVC ratio of 115% this was consistent with mild restriction, MVV was 96 Plan: Today's chest x-ray has been reviewed showing bibasilar atelectasis Continue encouraging deep breathing and coughing No acute events overnight labs reviewed Would hold on diuretics Continue to follow I performed a history & physical examination of the patient and discussed their management with my nurse practitioner, Yudi Streeter. I reviewed the nurse practitioner's note and agree with the documented findings and plan of care. Lung sounds are positive for clear breath sounds throughout the lung tran. The findings and the impression was discussed with the patient. I attest to the documentation by the nurse practitioner. Time with Patient: Less than 30
[2021-07-03 20:20] LABS: Glucose,Whole Blood 103 mg/dL (75-99)
[2021-07-03] MEDS: SENNOSIDES-DOCUSATE SODIUM 1 EACH TAB PO SCH (20:23)
[2021-07-03 23:20] VITALS: RESP 18
[2021-07-04 05:53] LABS: Glucose,Whole Blood 100 mg/dL (75-99)
[2021-07-04 06:16] LABS: Glucose,Whole Blood 106 mg/dL (75-99)
[2021-07-04] MEDS: PANTOPRAZOLE 40 MG TABLET PO SCH (06:28)
[2021-07-04] MEDS ORDERED: ACETAMINOPHEN TAB 325 MG TAB PO PRN (07:06)
[2021-07-04] MEDS: IPRATROPIUM-ALBUTEROL 3 ML NEB INHALATION SCH ×2 (07:26→12:05)
[2021-07-04] MEDS ORDERED: bisacodyL 10 MG SUPP RECTAL STA (07:57)
[2021-07-04] MEDS ORDERED: MAGNESIUM HYDROXIDE 2,400 MG/10 ML CUP PO STA (07:57)
[2021-07-04 08:00] LABS: HCT 33.4 % (39.0-53.0); MCH 30.7 pg (25.0-35.0); MCHC 32.9 g/dL (31.0-37.0); MCV 93.1 fL (80.0-100.0); Platelet Count 279 k/uL (150-450); RBC 3.59 m/uL (4.30-5.90); RDW 12.9 % (11.5-15.5); WBC 10.5 k/uL (3.8-10.6)
[2021-07-04 08:16] LABS: African American GFR (CKD) >90 (>60 ml/min/1.73 sqM); Anion Gap 8 mmol/L; Blood Urea Nitrogen 16 mg/dL (9-20); Calcium 8.9 mg/dL (8.4-10.2); Carbon Dioxide 28 mmol/L (22-30); Chloride 103 mmol/L (98-107); Glucose 108 mg/dL (74-99); Non-African American GFR(CKD) >90 (>60 ml/min/1.73 sqM); Potassium 4.2 mmol/L (3.5-5.1); Sodium 139 mmol/L (137-145)
[2021-07-04 08:24] VITALS: TEMP 98.1
[2021-07-04] MEDS: CLOPIDOGREL 75 MG TAB PO SCH (08:32)
[2021-07-04] MEDS: ATORVASTATIN 40 MG TAB PO SCH (08:32)
[2021-07-04] MEDS: ASPIRIN 325 MG TAB PO SCH (08:32)
[2021-07-04] MEDS: DILTIAZEM CD 120 MG CAP.ER.24H PO SCH (08:32)
[2021-07-04] MEDS: METOPROLOL TARTRATE 50 MG TAB PO SCH (08:32)
[2021-07-04] MEDS: HEPARIN SODIUM,PORCINE/PF 5,000 UNIT/0.5 ML SYRINGE SQ SCH (08:32)
[2021-07-04] MEDS ORDERED: FUROSEMIDE 10 MG/ML 2 ML VIAL IV ONE (09:03)
--- NOTE | 2021-07-04 09:19 | P.PN ---
Subjective Progress Note Date: 07/04/21 Principal diagnosis: Coronary artery disease, status post V. fib arrest with defibrillation 1 in CPR, return of ROSC, mildly impaired left ventricular systolic function with EF 40-45%. Previous medical history of hyperlipidemia, never smoker, and family history of heart disease including premature coronary artery disease with mother having myocardial infarction at less than 50 years old POD #4 Off pump coronary artery bypass grafting 5 with sequential left internal mammary artery graft to mid LAD to mid LAD, left radial artery graft to obtuse marginal, reverse saphenous vein graft to first diagonal, reverse saphenous vein graft with patch angioplasty to posterior descending, epi-aortic ultrasonography, endovascular vein harvest of the left greater saphenous vein from the mid calf to the groin, endovascular harvest the left radial artery, occlusion of the left atrial appendage with 35 mm AtriCure clip, ROWENA by anesthesia. Postoperative acute blood loss anemia, expected due to hemodilution. The patient was seen and examined this morning with Dr. Arnold. He was sitting up in a recliner in no acute distress. Remains in sinus rhythm with heart rate in the 80s to 90s. Hemodynamically stable. States pain is controlled on current medication regimen, denies shortness of breath. He did have a bloody nose this morning which has since resolved. He does complain of lack of sleep and wanting to go home. He was still on 2 L nasal cannula this morning, however room air oxygen saturation was 90-91% so we left him off oxygen. He has been ambulating in the hallway without difficulty. He has received his postoperative shower. Still has had no bowel movement. Otherwise no other new concerns. Objective - Vital Signs Vital signs: Vital Signs Temp 98.1 F 07/04/21 08:00 Pulse 95 07/04/21 08:00 Resp 18 07/04/21 08:00 BP 151/81 07/04/21 08:00 Pulse Ox 93 L 07/04/21 08:00 Intake & Output 07/03/21 07/04/21 07/04/21 18:59 06:59 18:59 Intake Total 240 Output Total 700 Balance -460 Weight 85.3 kg Intake: Oral 240 Output: Urine 700 Other: Voiding Method Urinal Urinal ABP, PAP, CO, CI - Last Documented Arterial Blood Pressure 115/48 Pulmonary Artery Pressure 30/7 Cardiac Output 4.1 Cardiac Index 2.1 - Exam CONSTITUTIONAL: Appears comfortable, cooperative, no acute distress RESPIRATORY: Lungs sounds diminished bilaterally. Respirations even, nonlabored. Currently on room air with oxygen saturation 90-91%. Able to achieve 1500 mL on incentive spirometry. Strong cough. CARDIOVASCULAR: S1, S2 present. Regular rate and rhythm, sinus rhythm on telemetry. Sternum stable. Palpable peripheral pulses bilaterally. No edema present. No calf pain or tenderness noted. Heart hugger in place with patient demonstrating appropriate use. Antiembolism stockings, SCDs present. GASTROINTESTINAL: Abdomen soft, nontender, nondistended. Active bowel sounds present 4 quadrants. Tolerating diet. Positive flatus, no bowel movement sin ce surgery GENITOURINARY: Continues to void INTEGUMENTARY: Skin is warm and dry with evidence of good perfusion. Anterior chest incision well approximated and covered with dry intact dressing. Left lower extremity EVH site well approximated without redness or drainage. 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 appropriately, good cap refill, denies numbness or tingling NEUROLOGIC: Cranial nerves II through XII intact MUSKULOSKELETAL: Able to move all extremities, strength equal bilaterally, gait normal PSYCHIATRIC: Alert and oriented to person place and time, appropriate affect, intact judgment and insight - Allied health notes Allied health notes reviewed: nursing - Labs CBC & Chem 7: 07/04/21 07:38 07/04/21 07:38 Labs: Abnormal Lab Results - Last 24 Hours (Table) 07/03/21 07/03/21 07/03/21 Range/Units 12:03 16:32 20:18 RBC (4.30-5.90) m/uL Hgb (13.0-17.5) gm/dL Hct (39.0-53.0) % Glucose (74-99) mg/dL POC Glucose (mg/dL) 108 H 126 H 103 H (75-99) mg/dL 07/04/21 07/04/21 07/04/21 Range/Units 05:52 06:14 07:38 RBC 3.59 L (4.30-5.90) m/uL Hgb 11.0 L (13.0-17.5) gm/dL Hct 33.4 L (39.0-53.0) % Glucose (74-99) mg/dL POC Glucose (mg/dL) 100 H 106 H (75-99) mg/dL 07/04/21 Range/Units 07:38 RBC (4.30-5.90) m/uL Hgb (13.0-17.5) gm/dL Hct (39.0-53.0) % Glucose 108 H (74-99) mg/dL POC Glucose (mg/dL) (75-99) mg/dL - Imaging and Cardiology Chest x-ray: image reviewed Assessment and Plan Assessment: 1. Multivessel coronary artery disease, status post 5 vessel CABG 2. Status post V. fib arrest with defibrillation 1 in CPR, return of ROSC 3. History of hyperlipidemia, cholesterol 148, LDL 66 4. Never smoker, preoperative FEV1 73% of predicted 5. Family history of heart disease including premature coronary artery disease with mother having myocardial infarction at less than 50 years old 6. Completed Moderna vaccination, last dose November 2020 7. Postoperative acute blood loss anemia, expected Plan: 1. Continue aspirin, statin, Plavix, beta farhat therapy. Will increase beta farhat therapy as tolerated 2. Continue oral Cardizem for radial artery spasm prophylaxis, do not discontinue without discussed with cardiac surgery 3. Encourage incentive spirometry use 10 times every hour while awake. Bronchodilators per pulmonology 4. Increase activity, ambulate as tolerated. PT/OT/cardiac rehab following. Shower daily 5. Will monitor daily labs and x-rays. Electrolyte replacement per protocol. Will give 20 mg IV push Lasix today 6. GI/DVT prophylaxis 7. Pain control with current medication regimen 8. Insulin management per primary care service. Patient is not diabetic, preoperative hemoglobin A1c was 5.8% 9. Will give 1 dose of milk of magnesia this morning. If no bowel movement by noon will give Dulcolax suppository 10. Discharge planning in progress. Anticipate discharge to home with home care later this afternoon versus tomorrow morning Time with Patient: Greater than 30
--- NOTE | 2021-07-04 09:43 | XR ---
EXAMINATION TYPE: XR chest 2V DATE OF EXAM: 07/04/2021 COMPARISON: 07/03/2021 TECHNIQUE: PA and lateral views submitted. HISTORY: Post CABG FINDINGS: The lungs are clear and there is no pneumothorax, pleural effusion, or focal pneumonia. Heart is pr ominent postoperative changes. There is bilateral lower lobe infiltrate and small effusion. No pneumo thorax. Atherosclerotic change aorta. IMPRESSION: 1. Bilateral infiltrate stable..
[2021-07-04 11:34] VITALS: BP 122/72
[2021-07-04 11:51] LABS: Glucose,Whole Blood 129 mg/dL (75-99)
--- NOTE | 2021-07-04 13:09 | P.PN ---
Subjective Progress Note Date: 07/04/21 Patient is pleasant 65-year-old male with a history of hyperlipidemia family history of coronary artery disease chest pains who presented approximately one month ago to our cardiology office to be evaluated for episodes where he will feel fine for most the day and then have a 5-10 minute "spell" where he will feel short of breath and had chest tightness. These would normally only occur approximately once a week however were increasing in frequency. He also has been having some episodes of chest tightness if he overdoes things such as mowing the grass for the last few years. He therefore underwent workup with a treadmill stress test earlier today in the office. 3 minutes into recovery he was sitting in a chair and started to have ST downsloping noted in the inferior leads and then 6 minutes into recovery had a ventricular fibrillation arrest. Patient underwent CPR and then defibrillation and was then transferred to [facility]. Patient seen and examined in emergency department. Patient states that since that time he denies any chest pain or pressure, no shortness breath. He is feeling somewhat nauseous however improving. EKG shows normal sinus rhythm, Q waves V1 and V2, no significant ST depressions or T-wave abnormalities. Blood work shows white blood cell count 10.1, hemoglobin 15.4, d-dimer 1.0, BUN 17, creatinine 0.8, glucose 131, initial troponin less than 0.012. No current chest pain or pressure, feels well. 06/28 Patient seen and examined. Patient denies any chest pain or pressure. He underwent heart catheterization yesterday which showed multivessel disease. Being evaluated for CABG. He describes mild congestion no orthopnea. 06/29 Patient seen and examined. Patient denies any chest pain or pressure. Blood pressures at been well controlled. No significant events on telemetry. 07/01 Continue examined. Patient underwent CABG yesterday. States he is feeling fairly well today. Does have some back discomfort and pain around the incision however no significant chest discomfort. Did have some pain around the chest tube site however feels better today. Sitting up in a chair. He was able to cough up some mucus. 07/02/21 This is a 65-year-old gentleman who had ventricular fibrillation after completion of stress test requiring defibrillation and B CPR. Patient subsequently had a cardiac cath and was found to have multivessel disease and has undergone I to coronary bypass surgery. Patient seemed to be progressing fairly well. He had five-vessel bypass surgery with the CHAN graft to the mid LAD to distal LAD, which was done sequentially, left radial artery graft to the OM branch and saphenous vein graft to the first diagonal and first vein graft with patch angioplasty to posterior descending. Overall, patient is feeling better and hoping to go home today. Denies any significant chest pain, shortness of breath or palpitations. No significant chest pain from the incision 07/03/2021 Patient examined this morning sitting up in the chair. He denies chest pain or pressure. Denies SOB. He remains on 3L NC. Pulling 1250cc on his incentive spirometer. 07/04/2021 Patient examined this morning in the chair. He denies CP. Denies SOB. He is currently on room air. PHYSICAL EXAM: VITAL SIGNS: Reviewed. GENERAL: Well-developed in no acute distress. HEENT: Head is normocephalic. Pupils are equal, round. Sclerae anicteric. Mucous membranes of the mouth are moist. Neck supple. No JVD or thyromegaly LUNGS: Respirations even and unlabored. Lungs diminished bilaterally. HEART: Regular rate and rhythm. S1 and S2 heard. Heart hugger noted. ABDOMEN: Soft. Nondistended. Nontender. EXTREMITIES: Normal range of motion. No clubbing or cyanosis. Peripheral pulses intact. Trace bilateral edema. NEUROLOGIC: Awake and alert. Oriented x 3. ASSESSMENT: 1. Status post cardiac arrest/Ventricular fibrillation during stress test 2. CAD s/p CABG 3. Hyperlipidemia 4. Elevated d-dimer, do not suspect PE given clinical scenario PLAN: Continue postoperative management per CTS Wean oxygen as tolerated Increase activity as tolerated Encourage use of incentive spirometer Patient is stable for discharge home today Nurse practitioner note has been reviewed by physician. Signing provider agrees with the documented findings, assessment, and plan of care. Objective - Vital Signs Vital signs: Vital Signs Temp 98.1 F 07/04/21 11:33 Pulse 92 07/04/21 12:17 Resp 18 07/04/21 11:33 BP 122/72 07/04/21 11:33 Pulse Ox 92 L 07/04/21 11:33 Intake & Output 07/03/21 07/04/21 07/04/21 18:59 06:59 18:59 Intake Total 240 0 Output Total 700 200 Balance -460 -200 Weight 85.3 kg Intake: Oral 240 0 Output: Urine 700 200 Other: Voiding Method Urinal Urinal Urinal ABP, PAP, CO, CI - Last Documented Arterial Blood Pressure 115/48 Pulmonary Artery Pressure 30/7 Cardiac Output 4.1 Cardiac Index 2.1 - Labs CBC & Chem 7: 07/04/21 07:38 07/04/21 07:38 Labs: Abnormal Lab Results - Last 24 Hours (Table) 07/03/21 07/03/21 07/04/21 Range/Units 16:32 20:18 05:52 RBC (4.30-5.90) m/uL Hgb (13.0-17.5) gm/dL Hct (39.0-53.0) % Glucose (74-99) mg/dL POC Glucose (mg/dL) 126 H 103 H 100 H (75-99) mg/dL 07/04/21 07/04/21 07/04/21 Range/Units 06:14 07:38 07:38 RBC 3.59 L (4.30-5.90) m/uL Hgb 11.0 L (13.0-17.5) gm/dL Hct 33.4 L (39.0-53.0) % Glucose 108 H (74-99) mg/dL POC Glucose (mg/dL) 106 H (75-99) mg/dL 07/04/21 Range/Units 11:49 RBC (4.30-5.90) m/uL Hgb (13.0-17.5) gm/dL Hct (39.0-53.0) % Glucose (74-99) mg/dL POC Glucose (mg/dL) 129 H (75-99) mg/dL
[2021-07-04 13:31] VITALS: BMI 26.9
[2021-07-04 13:32] VITALS: PULSE 83
--- NOTE | 2021-07-04 16:01 | P.DS ---
Providers Date of admission: 06/27/21 09:48 Expected date of discharge: 07/04/21 Attending physician: Rosalio Kaufman Consults: 06/27/21 09:48 Consult Physician Stat Consulting Provider: Carmelo Nicloe Consult Reason/Comments: Intensive care Do you want consulting provider notified?: Already Contacted Consult Physician Urgent Consulting Provider: Jam Street Consult Reason/Comments: Post V. fib arrest Do you want consulting provider notified?: Already Contacted 06/27/21 18:15 Consult Physician Routine Consulting Provider: Rosalio Kaufman Consult Reason/Comments: re: CABG Do you want consulting provider notified?: Yes, Notify in am 06/29/21 11:01 Consult to Anesthesia Routine Consulting Provider: Anesthesia,Services Consult Reason/Comments: Cardiac Surgery Pre-Op 07/04/21 08:20 Consult Physician Routine Consulting Provider: Danny Brennan Consult Reason/Comments: med mgmt Do you want consulting provider notified?: Already Contacted Primary care physician: Annamaria Pimentel [facility] Course: FINAL DIAGNOSIS: 1. Multivessel coronary artery disease 2. V. fib arrest with defibrillation 1 and CPR, return of ROSC during stress test 3. History of hyperlipidemia, cholesterol 148, LDL 66 4. Never smoker, preoperative FEV1 73% of predicted 5. Family history of heart disease including premature coronary artery disease with mother having CA < 50 years old 6. Postoperative acute blood loss anemia, expected PRINCIPAL PROCEDURE: 1. Off pump coronary artery bypass grafting 5 with sequential left internal mammary artery graft to mid LAD to mid LAD, left radial artery graft to obtuse marginal, reverse saphenous vein graft to first diagonal, reverse saphenous vein graft with patch angioplasty to posterior descending 2. Epi-aortic ultrasonography 3. Endovascular vein harvest of the left greater saphenous vein from the mid calf to the groin 4. Endovascular harvest of the left radial artery 5. Occlusion of the left atrial appendage with 35 mm AtriCure clip 6. ROWENA by anesthesia HISTORY OF PRESENT ILLNESS: This is a 65-year-old male who follows on an outpatient basis with Dr. Pimentel for primary care as well as recently establishing cardiology care with Dr. Street. He reported approximately one year history of intermittent chest pain and shortness of breath which resolved on its own after a few minutes, mostly with activity. Recently these episodes had been occurring with increasing frequency and had occurred at rest so he felt he should be evaluated. He established care at [facility] with Dr. Street. He was undergoing stress testing and subsequently experienced V. fib arrest, received CPR and was shocked one time with ROSC and returned to normal sinus rhythm. He was started on IV amiodarone and transported to [facility] for further evaluation treatment. He underwent heart catheterization demonstrating proximal LAD stenosis 80%, mid LAD stenosis 100%, first diagonal stenosis 95%, proximal circumflex stenosis 40%, first obtuse marginal artery stenosis 95%, and distal circumflex stenosis 85%. Consultation was placed to cardiothoracic surgery for revascularization recommendations. He was recommended to undergo coronary artery bypass surgery. The usual perioperative course was discussed in detail with the patient and his family, all risks and benefits were explained, all questions were answered, and consent was obtained to proceed with surgery. The patient was kept inpatient due to the nature of his disease process. HOSPITAL COURSE: The patient was brought to the preoperative area 06/30/21, prepared in the usual fashion, and subsequently taken to the operating room where Dr. Kaufman performed 5 vessel CABG. Upon completion of surgery the patient was transferred to the cardiovascular intensive care unit where he was recovered and monitored hemodynamically. He was extubated, all lines, tubes, and drips were discontinued when appropriate, and he was transferred to 3 S cardiac stepdown unit for further monitoring and rehabilitation. His oxygen was titrated down, he continued to work with physical and occupational therapy, he was tolerating oral diet, his pain was controlled, and he was ready to be discharged to home with [facility] home care on postoperative day #4. He received written and verbal instruction regarding his medications, activity restrictions, signs and symptoms requiring physician notification, and follow-up appointments. Patient Condition at Discharge: Stable Plan - Discharge Summary Discharge Rx Participant: Yes New Discharge Prescriptions: New Aspirin 325 mg PO DAILY #30 tab Clopidogrel [Plavix] 75 mg PO DAILY #30 tab Pantoprazole [Protonix] 40 mg PO AC-BRKFST #30 tab Sennosides-Docusate Sodium [Senokot-S] 2 each PO HS PRN tab PRN Reason: Constipation Diltiazem Cd [Cardizem CD] 120 mg PO DAILY #30 capsule Atorvastatin [Lipitor] 40 mg PO DAILY #30 tab Metoprolol Tartrate [Lopressor] 100 mg PO BID #60 tab Acetaminophen Tab [Tylenol] 650 mg PO Q4HR PRN tab PRN Reason: Fever And/ Or Pain Discontinued Rosuvastatin [Crestor] 20 mg PO DAILY Metoprolol Succinate [Toprol XL] 25 mg PO DAILY Aspirin EC [Ecotrin Low Dose] 81 mg PO DAILY Discharge Medication List Acetaminophen Tab [Tylenol] 650 mg PO Q4HR PRN tab 07/04/21 [Rx] Aspirin 325 mg PO DAILY #30 tab 07/04/21 [Rx] Atorvastatin [Lipitor] 40 mg PO DAILY #30 tab 07/04/21 [Rx] Clopidogrel [Plavix] 75 mg PO DAILY #30 tab 07/04/21 [Rx] Diltiazem Cd [Cardizem CD] 120 mg PO DAILY #30 capsule 07/04/21 [Rx] Metoprolol Tartrate [Lopressor] 100 mg PO BID #60 tab 07/04/21 [Rx] Pantoprazole [Protonix] 40 mg PO AC-BRKFST #30 tab 07/04/21 [Rx] Sennosides-Docusate Sodium [Senokot-S] 2 each PO HS PRN tab 07/04/21 [Rx] Follow up Appointment(s)/Referral(s): Ni Weaver NPC [Nurse Practitioner] - 07/10/21 11:30 am (You will be seen in the surgeons office behind the hospital in [facility], [address] [place] [address] [address]) Jam Street DO [STAFF PHYSICIAN] - 07/10/21 2:00 pm Rosalio Kaufman MD [STAFF PHYSICIAN] - 08/02/21 1:30 pm Carmelo Nicole DO [Doctor of Osteopathic Medicine] - 07/24/21 1:00 pm [facility], [NON-STAFF] - 1-2 Days Annamaria Pimentel MD [Primary Care Provider] - 07/09/21 11:20 am [facility] [NON-STAFF] - 4 Weeks (You will be called in about 4 weeks for evaluation for cardiac rehab ) Ambulatory/Diagnostic Orders: Complete Blood Count w/diff [LAB.AMB] Time Frame: 3 Days, Location: None Selected Comprehensive Metabolic Panel [LAB.AMB] Time Frame: 3 Days, Location: None Selected Activity/Diet/Wound Care/Special Instructions: DISCHARGE INSTRUCTIONS: 1. No driving for 4 weeks, or until physician gives their ok. 2. The patient should sleep in their own bed, no medical bed needed. 3. Stairs are not an issue. If the bedroom is upstairs, it is advised that the patient go up at night and down in the morning for the first week. Go slowly, using handrail and take 1 step at a time. 4. DYLAN hose are to be worn for 30 days or until physician discontinues. 5. Heart hugger is to be worn 100% of the time until physician dis continues.(except when showering) 6. No lifting, pushing, or pulling more than 10 pounds for 12 weeks. The physician will advise of any restriction changes. 7. The patient is expected to continue the prescribed walking program. 8. Continue pain control per as needed orders. 9. Continue with incentive spirometry and splinting/heart hugger until otherwise directed by the physician. 10. Must shower daily using liquid antibacterial soap and a separate white washcloth for each individual incision. 11. Routine sternal incision care. No powders, lotions, ointments on incisions. No dressings are necessary on incisions unless they are draining. Dermabond tape is to remain on sternal incision until surgeon follow-up. 12. Please call surgeon/PASSENGER CONDUCTOR for temp greater than 101 F or purulent drainage from incisions. 13. All prescriptions given by surgeon for 30 days. Refills need to be filled through building superintendent/primary care physician. 14. A Red armband has been placed on the patient. It should be worn for 30 days post surgery and will be removed by the cardiac surgeons. If an ER visit is necessary, please make sure the number on the Red armband is called. 15. You have been referred to and are expected to begin Cardiac Rehab in approximately 4-6 weeks. HOME HEALTH SERVICES TO PROVIDE: RN SKILLED HOME CARE SERVICES FOR POST-OP SURGICAL PATIENTS WITH THE FOLLOWING: Coronary Artery Bypass Surgery (CABG), Mitral Valve Replacement/Repair ( MVR), Aortic Valve Replacement/Repair (AVR) RN TO CONTINUE EDUCATION FROM ``ROAD TO A HEALTH HEART PATIENT EDUCATION MANUAL (GIVEN TO PATIENT IN THE HOSPITAL) MEDICATION RECONCILIATION WITH EDUCATION NEEDED ON FIRST HOME VISIT EMPHASIZE IMPORTANCE OF WEARING BREAST SUPPORT/HEART HUGGER ENCOURAGE USE OF INCENTIVE SPIROMETER 10 X EVERY HOUR WHILE AWAKE ENCOURAGE UTILIZATION OF LOWER EXTREMITY COMPRESSION STOCKINGS/DYLAN HOSE and ELEVATE LEGS ABOVE LEVEL OF HEART WHILE AT REST. ENCOURAGE AMBULATION 3-5x/day INCREASING TOLERATES, WHILE AVOIDING EXTREMES IN TEMPERATURE FREQUENCY: RN TO OPEN THE PATIENT WITHIN 24 HOURS OF DISCHARGE FROM THE HOSPITAL WITH TELEHEALTH INSTALLED AT [facility] [place], RN TO VISIT 2-3 X A WEEK FOR 4 WEEKS ESTABLISHED BY PATIENT NEEDS. LABORATORY: CBC, CMP TO BE DRAWN ON THE THIRD DAY HOME, (RAN STAT) FAX RESULTS TO [phone]. TELEHEALTH PARAMETERS: WEIGHT: NOTIFY MD OF WEIGHT GAIN OF 2 LBS IN 24 HOURS OR 5 LBS IN ONE WEEK HR: NOTIFY MD OF HR <55 BPM OR HR>100 BPM BP: NOTIFY MD IF BP <90/55 OR BP>140/100 O2 SAT: NOTIFY MD IF PO2<93% ON ROOM AIR SEND TELEHEALTH REPORT TO WEB SERVICES PROFESSIONAL AND CARDIOVASCULAR SURGEON THE FIRST WEEK OF CARE AND THEN BI-WEEKLY. PLEASE ADDITIONALLY COMMUNICATE ANY ABNORMALS AND NEW FINDINGS TO THE SURGEONS OFFICE. Discharge Disposition: HOME WITH HOME HEALTH SERVICES
--- NOTE | 2021-07-05 01:06 | P.PN ---
Subjective Progress Note Date: 07/04/21 Cardiac respiratory arrest secondary to coronary artery disease Mr. Thomas is a pleasant 65-year-old male came in after cardiac respiratory arrest and patient is found to be in V. tach this happened when when patient was having a stress test.His EKG did show sinus rhythm with the Q waves in V1 and V2 and probably ST depressions in leads 2 and V5. Patient's troponin is negative. Patient denied any symptoms at this time patient today. Patient denied any nausea vomiting chest pain. Patient underwent cardiac catheterization which showed a triple vessel disease patient, evaluated by cardiac thoracic surgery echocardiac exam showed mildly decreased EF of around 40-45%. On 06/30/2021 -patient is seen and examined in the ICU. Patient just got back after having coronary artery bypass grafting done. Patient is currently intubated and sedated. As per discussion with nursing staff no acute events reported during the procedure. Reviewing the patient's current vitals heart rate around 86, respiratory rate 21, blood pressure 143/59 saturating at 90%, still intubated on reviewing the patient's labs from this morning white count of 17.6, hemoglobin 13.1, platelets 243. INR of 1.2. ABG 7.36, PCO2 40, PO2 67 sodium 138, potassium 4.3, chloride 108, bicarb 21, BUN 16, creatinine 0.73 magnesium of 1.3. On 07/01/2021 patient is seen and examined at the bedside. He sitting comfortably in chair by the bedside. He still has his chest tubes in place and Moore's catheter in place. Patient complains of soreness around his chest area. He denies having any chest pain or palpitations. No cough or difficulty breathing patient still did not have a bowel movement. On reviewing the patient's vitals heart rate around 87, respiratory rate 21, blood pressure 131/55 saturating at 94% on room air. Patient's labs have been reviewed white count of 14, hemoglobin 12.1, platelets 215. Sodium 131, potassium 4.3, chloride 103, bicarb 22, BUN 17, creatinine 0.79 LFTs within normal limits 07/02/2021 patient seen and examined at the bedside. He sitting comfortably in a chair by the bedside. Patient has been complaining of pain in the right wrist since yesterday. He still has chest soreness. Patient denies having any cough or difficulty breathing. No abdominal pain nausea vomiting or diarrhea. Patient did not have a bowel movement yet. On reviewing the patient's vitals temperature of 98.6, heart rate 81, respiratory rate 21, blood pressure 132/68 saturating at 93% on 3 L of nasal cannula. Patient labs have been reviewed white count of 13, hemoglobin 10.6, platelets 146. Sodium 132, potassium 4.8, chloride 101, bicarb 25, BUN 23, creatinine 0.93 07/03/2021 Patient is seen and evaluated in follow-up and being closely monitored. Cardiothoracic and cardiology following closely. Family members at the bedside during examination today. Patient is sitting up in the chair with lower extremities elevated and heart hugger noted. Chest x-ray today shows no evident complication status post chest tubes being removed with some improvement in aeration in lung volumes and no evidence of pneumothorax or pleural effusion noted. Incentive spirometer at the bedside and recommended and encourage the patient to continue using at least 10 times every hour while awake even in the outpatient setting. 07/04/2021 Patient is seen in follow up this morning and being followed closely. Chest xray this morning showing stable bilateral infiltrate. Patient was continued on 2-3 liters of 02 via NC and given a dose of lasix and currently room air. Patient denies any shortness of breath or chest pains. Labs reviewed. Incentive spirometer encouraged and instructed the patient to continue using while at home. Labs: White blood count is 10.5, hemoglobin is 11.0, sodium is 139, potassium is 4.2, creatinine is 0.88 Review of systems: Constitutional: No reports of fatigue, fever, or chills Cardiovascular: No reports of chest pain or palpitations Respiratory: No reports of worsening shortness of breath or cough GI: No reports of nausea, vomiting, or diarrhea : No reports of dysuria or retention Neurovascular: No reports of weakness or numbness All medications have been reviewed Physical exam: GENERAL: sitting up in a chair, awake, alert and oriented 3, well-developed, well-nourished. Temp is 98.1F, pulse is 83, resp are 18, blood pressure is 122/72, oxygen saturation is 92% on room air HEENT: Pupils are round and equally reacting to light. EOMI. No scleral icterus. No conjunctival pallor. Normocephalic, atraumatic. CARDIOVASCULAR: S1 and S2 muffled PULMONARY: Diminished breath sounds bilaterally with no wheezing or rhonchi noted. ABDOMEN: Soft, nontender, nondistended, normoactive bowel sounds. No palpable organomegaly. MUSCULOSKELETAL: No joint swelling or deformity. EXTREMITIES: No cyanosis, clubbing, or pedal edema. Right wrist - mild tenderness in the thenar eminence NEUROLOGICAL: alert and oriented x 3 , no focal deficits SKIN: No rashes. Assessment: Status post acute cardiac arrest secondary to V. fib during outpatient stress test requiring brief CPR s/p Mechanical ventilation for CABG and s/p extubation Status post CABG done on 06/30/2021 Leukocytosis probably reactive Hyperlipidemia Multiple joint osteoarthritis GI prophylaxis DVT prophylaxis Full code PLAN: Recommend to continue with current medications, management, and symptomatic treatment. Cardio thoracic along with cardiology following and plan is for discharge today. Encouraged Incentive spirometer use at least 10 times every hour while awake and encouraged increase activity as tolerated. Recommend continue with breathing inhalational treatments as well and discussed with nursing staff about weaning FiO2 as tolerated. Due to multiple complex medical issues, prognosis is guarded. Will continue to follow closely. Arrangements being made for discharge today. Objective - Vital Signs Vital signs: Vital Signs Temp 98.7 F 07/04/21 03:01 Pulse 100 07/04/21 07:39 Resp 18 07/04/21 03:01 BP 144/81 07/04/21 03:01 Pulse Ox 88 L 07/04/21 03:02 Intake & Output 07/03/21 07/04/21 07/04/21 18:59 06:59 18:59 Intake Total 240 Output Total 700 Balance -460 Weight 85.3 kg Intake: Oral 240 Output: Urine 700 Other: Voiding Method Urinal Urinal ABP, PAP, CO, CI - Last Documented Arterial Blood Pressure 115/48 Pulmonary Artery Pressure 30/7 Cardiac Output 4.1 Cardiac Index 2.1 - Labs CBC & Chem 7: 07/04/21 07:38 07/04/21 07:38 Labs: Abnormal Lab Results - Last 24 Hours (Table) 07/03/21 07/03/21 07/03/21 Range/Units 07:39 12:03 16:32 RBC (4.30-5.90) m/uL Hgb (13.0-17.5) gm/dL Hct (39.0-53.0) % BUN 21 H (9-20) mg/dL Glucose 108 H (74-99) mg/dL POC Glucose (mg/dL) 108 H 126 H (75-99) mg/dL 07/03/21 07/04/21 07/04/21 Range/Units 20:18 05:52 06:14 RBC (4.30-5.90) m/uL Hgb (13.0-17.5) gm/dL Hct (39.0-53.0) % BUN (9-20) mg/dL Glucose (74-99) mg/dL POC Glucose (mg/dL) 103 H 100 H 106 H (75-99) mg/dL 07/04/21 07/04/21 Range/Units 07:38 07:38 RBC 3.59 L (4.30-5.90) m/uL Hgb 11.0 L (13.0-17.5) gm/dL Hct 33.4 L (39.0-53.0) % BUN (9-20) mg/dL Glucose 108 H (74-99) mg/dL POC Glucose (mg/dL) (75-99) mg/dL
--- NOTE | 2021-07-11 10:14 | P.ARTDOP ---
Arterial Doppler Bilateral radial artery studies: Date of study: 06/28/2021 Reason for study: Preop CABG Findings: There is no consistent right to left or segmental pressure gradient. With radial artery compression utilizing follow plethysmography, there is a greater than 60 mmHg change on the right but no significant change on the left. Imaging shows good size on the right but the right is not usable based on pressure change with radial occlusion. The left radial artery is 3.6 x 3.1 mm proximally, 3.7 x 3.0 mm mid, and 3.0 x 2.3 mm distally. Impression: The left radial artery appears usable. The right is not.
--- NOTE | 2021-07-11 10:17 | P.VSCSTY ---
Greater Saphenous Vein Mapping This is bilateral lower extremity greater saphenous vein mapping. Date of service: 06/28/2021 Vein quality and ultrasound appearance: We see no intraluminal thrombus or obvious wall changes.. Vein size groin right : 6.2 x 6.0 groin left: 6.8 x 5.6 High thigh right: 4.4 x 4.0 high thigh left: 5.0 x 4.4 Mid thigh right: 4.3 x 3.9 mid thigh left: 5.9 x 5.0 Above-knee right: 4.6 x 3.6 above-knee left: 4.7 x 4.4 Below knee right: 4.3 x 3.6 below-knee left: 4.6 x 3.6 Mid calf right: 3.0 x 2.1 mid calf left: 3.1 x 2.3 Ankle right: 2.9 x 2.4 ankle left: 2.8 x 2.2 Impression: Usable bilateral greater saphenous vein.
== END 2021-07-04 13:53 | disposition home health service (06) | DRG 233 ==
LOC: EC 09:00 → 2SICU 09:48 → 3SCARD 07-02 17:00
PROVIDERS: ADMIT Thoracic Surgery (Cardiothoracic Vascular Surgery); ATTEND Thoracic Surgery (Cardiothoracic Vascular Surgery)
PROC: 4A023N7 Measurement of Cardiac Sampling and Pressure, Left Heart, Percutaneous Approach (ICD-10-PCS; 2021-06-27)
PROC: B2111ZZ Fluoroscopy of Multiple Coronary Arteries using Low Osmolar Contrast (ICD-10-PCS; 2021-06-27)
PROC: 03BC0ZZ Excision of Left Radial Artery, Open Approach (ICD-10-PCS; 2021-06-30)
PROC: 02100Z3 Bypass Coronary Artery, One Artery from Coronary Artery, Open Approach (ICD-10-PCS; 2021-06-30)
PROC: 02L70CK Occlusion of Left Atrial Appendage with Extraluminal Device, Open Approach (ICD-10-PCS; 2021-06-30)
PROC: B24BZZ4 Ultrasonography of Heart with Aorta, Transesophageal (ICD-10-PCS; 2021-06-30)
PROC: 5A0935A Assistance with Respiratory Ventilation, Less than 24 Consecutive Hours, High Flow/Velocity Cannula (ICD-10-PCS; 2021-06-30)
PROC: 02100Z9 Bypass Coronary Artery, One Artery from Left Internal Mammary, Open Approach (ICD-10-PCS; principal; 2021-06-30 08:00)
PROC: 02100AW Bypass Coronary Artery, One Artery from Aorta with Autologous Arterial Tissue, Open Approach (ICD-10-PCS; 2021-06-30 08:00)
PROC: 021109W Bypass Coronary Artery, Two Arteries from Aorta with Autologous Venous Tissue, Open Approach (ICD-10-PCS; 2021-06-30 08:00)
PROC: 06BQ4ZZ Excision of Left Saphenous Vein, Percutaneous Endoscopic Approach (ICD-10-PCS; 2021-06-30 08:00)
DX: I21.4 Non-ST elevation (NSTEMI) myocardial infarction (principal); I49.01 Ventricular fibrillation; I46.2 Cardiac arrest due to underlying cardiac condition; D62 Acute posthemorrhagic anemia; J98.11 Atelectasis; I47.2 Ventricular tachycardia; D72.829 Elevated white blood cell count, unspecified; E78.5 Hyperlipidemia, unspecified; I10 Essential (primary) hypertension; I25.119 Atherosclerotic heart disease of native coronary artery with unspecified angina pectoris; I44.0 Atrioventricular block, first degree; M19.90 Unspecified osteoarthritis, unspecified site; Z20.822 Contact with and (suspected) exposure to COVID-19; Z79.82 Long term (current) use of aspirin; Z79.899 Other long term (current) drug therapy; Z82.49 Family history of ischemic heart disease and other diseases of the circulatory system
CPT/HCPCS: 36415; 71045; 71046; 80048; 80053; 80061; 80074; 81003; 82330; 82805; 83036; 83735; 84443; 84484; 85025; 85027; 85379; 85520; 85610; 85730; 86850; 86891; 86900; 86901; 86920; 87070; 87635; 93005; 93306; 93458; 93880; 93923; 93930; 93970; 94002; 94150; 94640; 94760; 96374; 99291

== ENCOUNTER → 2021-08-10 | Outpatient (CLI) | payer OTHER ==
[2021-08-10 17:22] LABS: ALT 27 U/L (10-49); AST 20 U/L (14-35); Chol/HDL Ratio 3.16 Ratio; LDL Cholesterol,Calculated 67.4 mg/dL (0.0-131.0)
== END | disposition home or self-care (01) ==
LOC: LABWHC1 07:29
PROVIDERS: ATTEND Internal Medicine
DX: E78.2 Mixed hyperlipidemia (principal)
CPT/HCPCS: 36415; 80061; 84450; 84460

== ENCOUNTER → 2022-02-15 | Outpatient (CLI) | payer OTHER ==
[2022-02-15 10:55] LABS: ALT 46 U/L (10-49); AST 25 U/L (14-35); Chol/HDL Ratio 2.71 Ratio; LDL Cholesterol,Calculated 63.7 mg/dL (0.0-131.0); VLDL Calculation 17.74 mg/dL (5.00-40.00)
== END | disposition home or self-care (01) ==
LOC: LABWHC1 06:58
PROVIDERS: ATTEND Internal Medicine
DX: E78.2 Mixed hyperlipidemia (principal)
CPT/HCPCS: 36415; 80061; 84450; 84460

== ENCOUNTER → 2023-08-14 | Outpatient (CLI) | payer OTHER ==
[2023-08-14 11:18] LABS: ALT 47 U/L (10-49); AST 30 U/L (14-35); Chol/HDL Ratio 2.92 Ratio; LDL Cholesterol,Calculated 87.3 mg/dL (0.0-131.0); VLDL Calculation 16.52 mg/dL (5.00-40.00)
== END | disposition home or self-care (01) ==
LOC: LABWHC1 06:55
PROVIDERS: ATTEND Internal Medicine
DX: E78.2 Mixed hyperlipidemia (principal)
CPT/HCPCS: 36415; 80061; 84450; 84460

== ENCOUNTER → 2024-03-02 | Outpatient (CLI) | payer OTHER ==
--- NOTE | 2024-03-03 08:07 | CA ---
Transthoracic Echo Report Name: Adeel Chawla Age: 68 Gender: M : 1955 Exam Date: 03/02/2024 18:01 Exam Location: [facility] Ht (in): 70 Wt (lb): 187 Ordering Physician: Jam Street DO ([id number]) Attending/Referring Phys: Tanisha Leon [facility] Hog Sawyer Rosa M Magallanes RDCS Procedure CPT: Indications: R94.39 I50.22 CONGESTIVE HEART FAILURE Cardiac Hx: 2020 CABG Technical Quality: Good Contrast 1: Total Dose (mL): Contrast 2: Total Dose (mL): MEASUREMENTS (Male / Female) Normal Values 2D ECHO LV Diastolic Diameter PLAX 5.3 cm 4.2 - 5.9 / 3.9 - 5.3 cm LV Systolic Diameter PLAX 3.2 cm IVS Diastolic Thickness 0.9 cm 0.6 - 1.0 / 0.6 - 0.9 cm LVPW Diastolic Thickness 0.9 cm 0.6 - 1.0 / 0.6 - 0.9 cm LV Relative Wall Thickness 0.3 RV Internal Dim ED PLAX 3.2 cm LA Systolic Diameter LX 4.2 cm 3.0 - 4.0 / 2.7 - 3.8 cm LV Diastolic Volume MOD 4C 92.4 cm??? LV Systolic Volume MOD 4C 44.8 cm??? LV Ejection Fraction MOD 4C 51.6 % LV Cardiac Index MOD 4C 1410.7 cm???/min???m??? LV Diastolic Length 4C 8.9 cm LV Systolic Length 4C 7.5 cm LV Diastolic Volume MOD 2C 94.4 cm??? LV Systolic Volume MOD 2C 42.5 cm??? LV Ejection Fraction MOD 2C 54.9 % LV Cardiac Index MOD 2C 1535.1 cm???/min???m??? LV Diastolic Length 2C 7.6 cm LV Systolic Length 2C 6.3 cm M-MODE Aortic Root Diameter MM 2.6 cm LA Systolic Diameter MM 1.9 cm LA Ao Ratio MM 0.7 DOPPLER AV Peak Velocity 166.5 cm/s AV Peak Gradient 11.1 mmHg AI Peak Velocity 325.7 cm/s AI Peak Gradient 42.4 mmHg AI Pressure Half Time 1069.4 ms Mitral E Point Velocity 61.6 cm/s Mitral A Point Velocity 77.2 cm/s Mitral E to A Ratio 0.8 MV Deceleration Time 272.8 ms MV E' Velocity 9.7 cm/s Mitral E to MV E' Ratio 6.3 TR Peak Velocity 273.1 cm/s TR Peak Gradient 29.8 mmHg Right Ventricular Systolic Press 39.9 mmHg FINDINGS Left Ventricle Left ventricular ejection fraction is estimated at 50-55 %. Left ventricular cavity size normal. Left ventricular wall thickness normal. Distal septal wall akinesis, distal inferior wall akinesis Right Ventricle Normal right ventricular size and function. Mild pulmonary hypertension. Right Atrium Normal right atrial size. No right atrial thrombus or mass seen. Left Atrium Mildly increased left atrial diameter. No left atrial thrombus or mass present. Mitral Valve Structurally normal mitral valve. No evidence for mitral valve prolapse. No mitral stenosis. Mild mitral regurgitation. Aortic Valve Trileaflet aortic valve. Aortic valve sclerosis. Mild aortic regurgitation. Tricuspid Valve Structurally normal tricuspid valve. Mild tricuspid regurgitation. Pulmonic Valve Structurally normal pulmonic valve. Trace pulmonic regurgitation. Pericardium No pericardial effusion. No pleural effusion. Aorta Normal size aortic root and proximal ascending aorta. CONCLUSIONS Left ventricular ejection fraction 50-55% Apical inferior and apical septal akinesis RVSP 40 Mild mitral regurgitation Mild aortic regurgitation No pericardial effusion Previewed by: Dr. Jam Street DO (Electronically Signed) Final Date: 03 March 2024 08:07
== END | disposition home or self-care (01) ==
LOC: RADECHMAIN 17:51
PROVIDERS: ATTEND Internal Medicine
DX: R94.39 Abnormal result of other cardiovascular function study (principal); I50.22 Chronic systolic (congestive) heart failure; I34.0 Nonrheumatic mitral (valve) insufficiency
CPT/HCPCS: 93306

== ENCOUNTER → 2024-03-22 | Outpatient (CLI) | payer OTHER ==
[2024-03-22 17:34] LABS: ALT 38 U/L (10-49); AST 29 U/L (14-35); Chol/HDL Ratio 2.98 Ratio; LDL Cholesterol,Calculated 72.6 mg/dL (0.0-131.0)
== END | disposition home or self-care (01) ==
LOC: LABWHC1 08:01
PROVIDERS: ATTEND Internal Medicine
DX: E78.2 Mixed hyperlipidemia (principal)
CPT/HCPCS: 36415; 80061; 84450; 84460

== ENCOUNTER → 2024-03-31 12:00 | Day surgery (SDC) | payer OTHER ==
[2024-03-31] MEDS: IOPAMIDOL-370 100ML BTL INJ ONE (08:07)
[~2024-03-31 12:00] MED LIST changes: +ALPRAZolam 0.25 MG TAB PO PRN; +ALPRAZolam 0.5 MG TAB PO PRN; +ASPIRIN 325 MG TAB PO ONE; -DEXAMETHASONE SOD PHOSPHATE 10 MG/ML 1 ML VIAL IV ONE; +HEPARIN SODIUM 1,000 UN/ML (10ML VL) ONE; +HEPARIN SODIUM,PORCINE (1 ML) 2,500 UNIT in SODIUM CHLORIDE 0.9% 250 ML IRRIGATION PRN; +HEPARIN SODIUM,PORCINE 10,000 UNIT in SODIUM CHLORIDE 0.9% 1,000 ML IRRIGATION PRN; -HYDROmorphone 1 MG/ML 1 ML SYRINGE IVP PRN; -LIDOCAINE 1% 20 ML VIAL (10MG/ML) FOR IV START INTRADERMA PRN; +LIDOCAINE 1% INJ 10MG/ML (20 ML MDV) ONE; +MIDAZOLAM 2 MG/2 ML VIAL ONE; +NITROGLYCERIN SL TABS 0.4 MG TAB SUBLINGUAL PRN; -ONDANSETRON 4 MG/2 ML VIAL IVP ONE; -SCOPOLAMINE 1.5MG/72HR PATCH TRANSDERM ONE; +SODIUM CHLORIDE 0.9% 1,000 ML in EMPTY BAG 1 BAG IV SCH; +TICAGRELOR 90 MG TAB ONE; +VERAPAMIL 2.5 MG/ML 2 ML AMP ONE; +fentaNYL (PF) 50 MCG/ML 2 ML AMP ONE
== END | disposition home or self-care (01) ==
LOC: CATHCVL 12:00
PROVIDERS: ATTEND Internal Medicine
DX: R94.39 Abnormal result of other cardiovascular function study
CPT/HCPCS: 80048; 85025; 92978; 93459; 93567

== ENCOUNTER → 2024-07-13 | Outpatient (CLI) | payer OTHER ==
[2024-07-13 13:19] LABS: ALT 29 U/L (10-49); AST 26 U/L (14-35); Chol/HDL Ratio 3.34 Ratio
== END | disposition home or self-care (01) ==
LOC: LABWHC1 06:52
PROVIDERS: ATTEND Internal Medicine
DX: E78.2 Mixed hyperlipidemia (principal)
CPT/HCPCS: 36415; 80061; 84450; 84460

== ENCOUNTER → 2024-12-31 | Outpatient (CLI) | payer OTHER ==
[2024-12-31 10:33] LABS: ALT 42 U/L (10-49); Chol/HDL Ratio 2.56 Ratio
[2024-12-31 10:34] LABS: AST 30 U/L (14-35)
== END | disposition home or self-care (01) ==
LOC: LABWHC1 07:01
PROVIDERS: ATTEND Internal Medicine
DX: E78.2 Mixed hyperlipidemia (principal)
CPT/HCPCS: 36415; 80061; 84450; 84460